=== PATIENT | female | born 1985 | race Caucasian/White ===

== ENCOUNTER 2024-04-09 23:47 | Inpatient (IN) | payer OTHER, SELFPAY ==
--- OUTSIDE RECORDS SUMMARY | 2024-04-09 23:52 | XMS_ITS | Continuity of Care Document ---
Author Organization [employer] ter Address [address] [place] [id number]- Care Team Providers Care Plastic Maker Name Role Phone Vivian WORKMAN, He Huitron Primary Care Physician Encounter [facility] ACCT R [id number] Date(s): 11/17/22 - 11/23/[address] [address] Discharge Disposition: A-D/C Home Attending Physician: Namrata Jeffers DO Admitting Physician: Ruddy Stovall MD Referring Physician: Not on Staff, Referring MD Allergies, Adverse Reactions, Alerts Substance Reaction Severity Status amoxicillin Active Fioricet Active Bactrim Active Vicodin Active Immunizations Given and Recorded Vaccine Date Status Refusal Reason tetanus/diphtheria/pertussis, acel(Tdap) 1 09/10/14 Given tetanus/diphtheria/pertussis, acel(Tdap) 2 02/23/10 Given 1Admin Note: VIS sheet given 12/20/2012 2Admin Note: VIS 07/01/09; WAIVER SIGNED Medications aspirin 81 mg oral delayed release tablet 81 mg, 1, tablet, By Mouth, Daily, # 30 tablet, Refills 0, Tot. Refills 0, Maintenance, 11/23/22 15:29:00 EDT, Route to Pharmacy Electronically, [facility], Partial fill upon patient request if the prescription is for a schedule II opioi... Start Date: 11/23/22 Stop Date: 12/23/22 Status: Ordered [place] By Mouth, 0 Refills, Maintenance, 05/25/20 10:20:00 EDT Start Date: 05/25/20 Status: Ordered Compression Stockings See Instructions, # 2 each, Refills 3, Tot. Refills 3, Maintenance, surgical, knee length 20-30 mm Hg, 05/25/20 10:55:00 EDT, Supply, 161, cm, 05/25/20 10:18:00 EDT, Height, 83.5, kg, 10/02/18 17:47:00 EST, Dry Weight Start Date: 05/25/20 Status: Ordered Gabapentin = 1,200 mg, By Mouth, 2 times a day, 0 Refills, Maintenance, 02/02/16 9:14:54 Start Date: 02/02/16 Status: Ordered gabapentin 400 mg oral capsule 1,200 mg, Capsule, By Mouth, 11/23/22 9:00:00 EDT Start Date: 11/23/22 Stop Date: 11/23/22 Status: Completed ibuprofen 600 mg oral tablet 600 mg, 1, tablet, By Mouth, 4 times a day, PRN, # 30 tablet, Refills 0, Tot. Refills 0, Maintenance, as needed for pain, 08/09/17 16:54:44, Print Requisition Start Date: 08/09/17 Status: Ordered Omeprazole = 40 mg, By Mouth, Daily, 0 Refills, Maintenance, 05/15/17 10:07:13 Start Date: 05/15/17 Status: Ordered Topamax 100 mg oral tablet 1 tablet = 100 mg, By Mouth, Daily, 0 Refills, Maintenance, 05/15/17 10:07:22 Start Date: 05/15/17 Status: Ordered valACYclovir 500 mg oral tablet 1,000 mg, 2, tablet, By Mouth, Daily, Refills 0, Maintenance, 11/23/22 15:30:00 EDT, Partial fill upon patient request if the prescription is for a schedule II opioid drug. Start Date: 11/23/22 Status: Ordered Problem List Condition Confirmation Course Effective Dates Status Health St atus Informant DVT (deep venous thrombosis) Confirmed Active GENITAL HERPES, UNSPECIFIED Confirmed Active x 3 Confirmed Active Migraine without aura Confirmed Active Social history 1 Confirmed Active Ulcerative colitis Confirmed Active Venous varices Confirmed Active 1Engaged, nonsmoker. Results Radiology Reports * Exam Date Time Procedure Performing Provider Status 11/22/22 9:26 PM US Doppler Ext Upper Venous Bilat Kina Bedoya; Auth (Verified) Notes: (US Doppler Ext Upper Venous Bilat) Reason For Exam: hypercoaguability, stroke;Other: RESULT: US Doppler Ext Upper Venous Bilat US Doppler Ext Upper Venous Bilat Reason: Other:; hypercoaguability, stroke; Clinical Question(s): Thrombosis COMPARISON: None. IMAGING TECHNIQUE: Ultrasound examination of the bilateral upper extremity deep venous systems was performed using grayscale, color, and spectral wave analysis including response to compression. FINDINGS: RIGHT UPPER EXTREMITY: Internal jugular vein: Patent. No thrombosis. Subclavian vein: Patent. Axillary vein: Patent. No thrombosis. Brachial vein: Patent. No thrombosis. Basilic vein: Patent. No thrombosis. Cephalic vein: Patent. No thrombosis. LEFT UPPER EXTREMITY: Internal jugular vein: Patent. No thrombosis. Subclavian vein: Patent. Axillary vein: Patent. No thrombosis. Brachial vein: Patent. No thrombosis. Basilic vein: Patent. No thrombosis. Cephalic vein: Patent. No thrombosis. IMPRESSION: No evidence of venous thrombosis. WSN: [id number] Ordering Physician: Shanda Velarde Dictated By: Manpreet Latif MD Dictated Date/Time: 11/22/22 9:39 pm Reviewed By: Manpreet Latif MD Signed By: Manpreet Latif MD Signed Date/Time: 11/22/22 9:39 pm Transcribed By: BRADLEY Transcribed Date/Time: 11/22/22 9:38 pm * Exam Date Time Procedure Performing Provider Status 11/22/22 7:[address] Abd/Pelvis W/ IV Contrast Only Stup Jere king; Auth (Verified) Notes: (CT Abd/Pelvis W/ IV Contrast Only) Reason For Exam: Hypercoaguable;Other: RESULT: CT Abd/Pelvis W/ IV Contrast Only CT Chest W/ Contrast, CT Abd/Pelvis W/ IV Contrast Only INDICATION: Reason: Other:; Search for cancer, hypercoagulable; Clinical Question(s): Carcinoma; Order Comment: TECHNIQUE: Helical CT scan of the chest, abdomen, and pelvis with IV contrast, formatted in 3 planes. 100 cc of Omnipaque 300 was administered intravenously. This study was performed without oral contrast. Weight-based protocol was performed using automatic exposure control. CTDIvol Body: 11.61 mGy, DLP Body: 766 mGy*cm. COMPARISON: CT abdomen pelvis noncontrast 02/19/2016. FINDINGS: Educational Diagnostician view findings, lines and tubes: None. Trachea and airways: Patent without evidence of tracheal or endobronchial lesion. Lungs and pleura: Minimal dependent atelectasis in the lower lobes. No consolidation. No suspiciouspulmonary lesion. No effusion or pneumothorax. Mediastinum and pablo: No mass or hematoma. No mediastinal or hilar lymphadenopathy. No esophageal abnormality. Normal thyroid. Heart: Heart is normal in size. No pericardial effusion. Aorta: No aortic aneurysm. Pulmonary arteries: Normal caliber. No evidence of pulmonary embolism on this study performed without angiographic technique. Chest wall soft tissues: No acute abnormality. Diaphragm: Intact. Liver: Diffuse low-attenuation throughout the liver parenchyma consistent with hepatic steatosis. No evidence of a suspicious lesion. More focal fatty infiltration adjacent to the falciform ligament versus variant perfusion. Patent portal and hepatic veins. Gallbladder: Absent consistent with prior cholecystectomy. Bile ducts: No biliary ductal dilation. Spleen: Spleen is enlarged and measures 16 cm in craniocaudal dimension. No suspicious splenic lesion. Pancreas: No suspicious lesion or ductal dilatation. Adrenal glands: No nodule. Kidneys and ureters: Numerous bilateral nonobstructing renal calculi. The stone burden is similar to the prior CT on 02/19/2016. Simple cyst in the interpolar region of the right kidney. No suspicious renal mass. Bladder: No wall thickening or surrounding stranding. Reproductive organs: Right ovarian corpus luteum cyst. Anteverted uterus. No adnexal mass. Stomach, small bowel, and large bowel: Stomach, small bowel and large bowel are normal in caliber. No evidence of bowel obstruction. No acute inflammatory process of the bowel. Appendix: No evidence of acute appendicitis. Peritoneum and retroperitoneum: No ascites or pneumoperitoneum. No omental or mesenteric lesions. Lymph nodes: Mildly prominent inguinal lymph nodes bilaterally, more so on the left with adjacent surgical clips. The largest partially imaged lymph node measures 2.5 x 1.3 cm and is without significant change dating back to 02/19/2016. Blood vessels: No vascular calcifications or aneurysm. No evidence of venous thrombosis. Abdominal and pelvic wall soft tissues: No acute abnormality. Bones: No acute abnormality. IMPRESSION: 1. Moderate splenomegaly measuring up to 16 cm in craniocaudal dimension. 2. Bilateral nonobstructing renal calculi with a similar stone burden to 02/19/2016. 3. Unchanged mildly enlarged left inguinal lymph node with adjacent surgical clips. 4. Hepatic steatosis 5. No acute process in the chest. WSN: [id number] Ordering Physician: Shanda Velarde Dictated By: Franko Li MD Dictated Date/Time: 11/22/22 8:04 pm Reviewed By: Franko Li MD Signed By: Franko Li MD Signed Date/Time: 11/22/22 8:04 pm Transcribed By: BRADLEY Transcribed Date/Time: 11/22/22 7:54 pm * Exam Date Time Procedure Performing Provider Status 11/22/22 7:[address] Chest W/ Contrast Stupak , Jere; Au th (Verified) Notes: (CT Chest W/ Contrast) Reason For Exam: Search for cancer, hypercoaguable;Other: RESULT: CT Chest W/ Contrast CT Chest W/ Contrast, CT Abd/Pelvis W/ IV Contrast Only INDICATION: Reason: Other:; Search for cancer, hypercoagulable; Clinical Question(s): Carcinoma; Order Comment: TECHNIQUE: Helical CT scan of the chest, abdomen, and pelvis with IV contrast, formatted in 3 planes. 100 cc of Omnipaque 300 was administered intravenously. This study was performed without oral contrast. Weight-based protocol was performed using automatic exposure control. CTDIvol Body: 11.61 mGy, DLP Body: 766 mGy*cm. COMPARISON: CT abdomen pelvis noncontrast 02/19/2016. FINDINGS: Educational Diagnostician view findings, lines and tubes: None. Trachea and airways: Patent without evidence of tracheal or endobronchial lesion. Lungs and pleura: Minimal dependent atelectasis in the lower lobes. No consolidation. No suspiciouspulmonary lesion. No effusion or pneumothorax. Mediastinum and pablo: No mass or hematoma. No mediastinal or hilar lymphadenopathy. No esophageal abnormality. Normal thyroid. Heart: Heart is normal in size. No pericardial effusion. Aorta: No aortic aneurysm. Pulmonary arteries: Normal caliber. No evidence of pulmonary embolism on this study performed without angiographic technique. Chest wall soft tissues: No acute abnormality. Diaphragm: Intact. Liver: Diffuse low-attenuation throughout the liver parenchyma consistent with hepatic steatosis. No evidence of a suspicious lesion. More focal fatty infiltration adjacent to the falciform ligament versus variant perfusion. Patent portal and hepatic veins. Gallbladder: Absent consistent with prior cholecystectomy. Bile ducts: No biliary ductal dilation. Spleen: Spleen is enlarged and measures 16 cm in craniocaudal dimension. No suspicious splenic lesion. Pancreas: No suspicious lesion or ductal dilatation. Adrenal glands: No nodule. Kidneys and ureters: Numerous bilateral nonobstructing renal calculi. The stone burden is similar to the prior CT on 02/19/2016. Simple cyst in the interpolar region of the right kidney. No suspicious renal mass. Bladder: No wall thickening or surrounding stranding. Reproductive organs: Right ovarian corpus luteum cyst. Anteverted uterus. No adnexal mass. Stomach, small bowel, and large bowel: Stomach, small bowel and large bowel are normal in caliber. No evidence of bowel obstruction. No acute inflammatory process of the bowel. Appendix: No evidence of acute appendicitis. Peritoneum and retroperitoneum: No ascites or pneumoperitoneum. No omental or mesenteric lesions. Lymph nodes: Mildly prominent inguinal lymph nodes bilaterally, more so on the left with adjacent surgical clips. The largest partially imaged lymph node measures 2.5 x 1.3 cm and is without significant change dating back to 02/19/2016. Blood vessels: No vascular calcifications or aneurysm. No evidence of venous thrombosis. Abdominal and pelvic wall soft tissues: No acute abnormality. Bones: No acute abnormality. IMPRESSION: 1. Moderate splenomegaly measuring up to 16 cm in craniocaudal dimension. 2. Bilateral nonobstructing renal calculi with a similar stone burden to 02/19/2016. 3. Unchanged mildly enlarged left inguinal lymph node with adjacent surgical clips. 4. Hepatic steatosis 5. No acute process in the chest. WSN: [id number] Ordering Physician: Shanda Velarde Dictated By: Franko Li MD Dictated Date/Time: 11/22/22 8:04 pm Reviewed By: Franko Li MD Signed By: Franko Li MD Signed Date/Time: 11/22/22 8:04 pm Transcribed By: BRADLEY Transcribed Date/Time: 11/22/22 7:54 pm * Exam Date Time Procedure Performing Provider Status 11/21/22 10:26 AM US Doppler Ext Lower Venous Bilat Eryn Alexander; Pat (Verified) Notes: (US Doppler Ext Lower Venous Bilat) Reason For Exam: Hx blood clots;Other: RESULT: US Doppler Ext Lower Venous Bilat US Doppler Ext Lower Venous Bilat Reason: Hx blood clots; Clinical Question(s): Thrombosis; Order Comment: prior DVT- varicose veins-embolic CVA COMPARISON: 09/01/2018 IMAGING TECHNIQUE: Ultrasound of the veins from the groin through the calf was performed using grayscale, color, and spectral Doppler ultrasound assessing for complete compressibility and normal flowcharacteristics. FINDINGS: RIGHT LOWER EXTREMITY: Common femoral vein: Patent. No thrombosis. Femoral vein: Patent. No thrombosis. Popliteal vein: Patent. No thrombosis. Gastrocnemius veins: The visualized portions are patent without evidence of thrombosis. Peroneal veins: The visualized portions are patent without evidence of thrombosis. Posterior tibial veins: The visualized portions are patent without evidence of thrombosis. LEFT LOWER EXTREMITY: Common femoral vein: Patent. No thrombosis. Femoral vein: Patent. No thrombosis. Popliteal vein: Patent. No thrombosis. Gastrocnemius veins: The visualized portions are patent without evidence of thrombosis. Peroneal veins: The visualized portions are patent without evidence of thrombosis. Posterior tibial veins: The visualized portions are patent without evidence of thrombosis. IMPRESSION: No evidence of deep venous thrombosis. WSN: [id number] Ordering Physician: Gianni Freed Dictated By: Brandin Hardwick MD Dictated Date/Time: 11/21/22 10:53 a Reviewed By: Brandin Hardwick MD Signed By: Brandin Hardwick MD Signed Date/Time: 11/21/22 10:53 am Transcribed By: BRADLEY Transcribed Date/Time: 11/21/22 10:53 am * Exam Date Time Procedure Performing Provider Status 11/19/22 3:04 AM MRI Brain W/O Contrast Ron Cobos (Verified) Notes: (MRI Brain W/O Contrast) Reason For Exam: L MCA infarct s/p TNK/thrombectomy;Other: RESULT: MRI Brain W/O Contrast MRI Brain W/O Contrast INDICATION: Reason: Other:; L MCA infarct s p TNK thrombectomy; Clinical Question(s): Infarction; Order Comment: Please see Reference Text for complete list of contraindications Infarction TECHNIQUE: MRI of the brain was performed without contrast utilizing sagittal T1, axial T2, axial FLAIR, axial SWAN, and axial DWI sequences. COMPARISON: Head CT 11/18/2022 FINDINGS: Image quality is mildly degraded by motion. BRAIN and EXTRA-AXIAL SPACES: There is restricted diffusion involving the left insula, left frontoparietal operculum, and scattered in the white matter as well as the alfonso-white matter junction of the right frontal and parietal lobes compatible with acute infarct. Associated T2 hyperintensity with local swelling and loss of alfonso-white matter differentiation which is most prominent along the insula. Ventricles and sulci are otherwise normal in size. No extra-axial collection, mass effect, shift ofmidline structures, or basal cistern effacement. No hemorrhage. The major intracranial vascular flow voids are preserved. EXTRACRANIAL SOFT TISSUES: Orbits are unremarkable. There is mild scattered mucosal thickening in the paranasal sinuses, without fluid levels. BONES: Marrow signal is preserved. IMPRESSION: Areas of acute infarct in the left MCA territory as detailed above. No hemorrhage. WSN: [id number] Ordering Physician: Kacey Jay Dictated By: Nereyda Richardson MD Dictated Date/Time: 11/19/22 7:19 am Reviewed By: Nereyda Richardson MD Signed By: Nereyda Richardson MD Signed Date/Time: 11/19/22 7:19 am Transcribed By: BRADLEY Transcribed Date/Time: 11/19/22 7:16 am * Exam Date Time Procedure Performing Provider Status 11/18/22 5:[address] Head/Brain W/O Contrast Tomy Mckeon; Pat (Verified) Notes: (CT Head/Brain W/O Contrast) Reason For Exam: 24hrs post TNK;Other: RESULT: CT Head/Brain W/O Contrast CT Head/Brain W/O Contrast INDICATION: 24hrs post TNK; Clinical Question(s): Infarction; Order Comment: TECHNIQUE: Noncontrast head CT using axial technique and reconstructed in axial and coronal planes.Iterative reconstruction techniques are used to optimize dose and image quality. CTDIvol Head: 30.44 mGy, DLP Head: 487 mGy*cm. COMPARISON: CT angiogram head from 11/17/2022 and intracranial angiogram from 11/17/2022. FINDINGS: Educational Diagnostician view findings, lines and tubes: None. BRAIN AND EXTRA-AXIAL SPACES: No parenchymal hemorrhage, midline shift, or mass effect. Alfonso-white matter differentiation is wellpreserved. No acute infarct. Negative insular ribbon and hyperdense vessel signs. Ventricles, sulci, and basilar cisterns are normal. No white matter lesions. No subarachnoid hemorrhage. No subdural or epidural collection. CALVARIUM, SKULL BASE, AND SOFT TISSUES: No fractures or suspicious bony lesions. Moderate mucosal thickening in the bilateral maxillary sinuses. The remainder of the paranasal sinuses and mastoid air cells are clear. Visualized orbits and globes are intact. The extracranial soft tissues are unremarkable. IMPRESSION: No acute intracranial pathology. No evolving infarct. No evidence of acute hemorrhage. I have personally reviewed the images and I agree with this report. WSN: [id number] Ordering Physician: Steffi Heller Dictated By: Beatrice Shea MD Dictated Date/Time: 11/18/22 6:36 pm Reviewed By: Jc Clark MD Signed By: Jc Clark MD Signed Date/Time: 11/18/22 6:41 pm Transcribed By: BRADLEY Transcribed Date/Time: 11/18/22 6:09 pm * Exam Date Time Procedure Performing Provider Status 11/18/22 2:57 PM Chest Portable Gary Piña; Auth (V erified) Notes: (Chest Portable) Reason For Exam: diagnosed outpt with PNA;Other: RESULT: Chest Portable Chest Portable Reason: Concern for pneumonia COMPARISON: 10/03/2014, 09/04/2014 FINDINGS: LINES AND TUBES: None. LUNGS AND PLEURA: Mild bibasilar atelectasis. Normal pulmonary vascularity. No pleural effusion. No pneumothorax. HEART, MEDIASTINUM AND PABLO: Heart is normal in size. Normal mediastinal and hilar contour. BONES AND SOFT TISSUES: Right C7 cervical rib.. IMPRESSION: Mild bibasilar atelectasis. I have personally reviewed the images and I agree with this report. WSN: [id number] Ordering Physician: Steffi Heller Dictated By: Karla Hunt MD Dictated Date/Time: 11/18/22 4:15 pm Reviewed By: Gibran Arnold MD Signed By: Gibrna Arnold MD Signed Date/Time: 11/18/22 4:20 pm Transcribed By: BRADLEY Transcribed Date/Time: 11/18/22 4:00 pm Vital Signs Most recent to oldest [Reference Range]: 1 2 3 Height 165 cm (11/23/22 4:45 AM) 165 cm (11/22/22 8:17 PM) 165 cm (11/22/22 3:45 PM) Weight 72 kg (11/21/22 4:10 PM) 72.0 kg (11/21/22 7:30 AM) 72 kg (11/21/22 7:24 AM) Oxygen Saturation [94-100 %] 97 % (11/23/22 12:00 PM) 99 % (11/23/22 8:00 AM) 100 % (11/23/22 4:45 AM) Pulse Rate [55-90 bpm] 92 bpm *H* (11/23/22 12:00 PM) 67 bpm (11/23/22 8:00 AM) 78 bpm (11/23/22 4:45 AM) Body Mass Index [18.5-24.99 kg/m2] 26.63 kg/m2 *H* (11/21/22 3:20 AM) 26.63 kg/m2 *H* (11/17/22 10:28 PM) Blood Pressure [90-138/55-84 mm Hg] 112/69mm Hg (11/23/22 12:00 PM) 117/61mm Hg (11/23/22 8:00 AM) 105/61mm Hg (11/23/22 4:45 AM) Respiratory Rate [16-30 br/min] 18 br/min (11/23/22 12:00 PM) 18 br/min (11/23/22 10:37 AM) 18 br/min (11/23/22 9:37 AM) Temperature [96.8-100.4 DegF] 98.8 DegF (11/23/22 12:00 PM) 99.3 DegF (11/23/22 8:00 AM) 98.1 DegF (11/23/22 4:45 AM) Liters per Minute 4 L/min (11/18/22 12:00 AM) 6 L/min (11/17/22 11:30 PM) 6 L/min (11/17/22 11:00 PM) Mode of Delivery (Oxygen) Room air (11/23/22 12:00 PM) Room air (11/23/22 8:00 AM) Room air (11/23/22 4:45 AM) Blood pressure sites Arm, right (11/23/22 12:00 PM) Arm, right (11/23/22 8:00 AM) Arm, left (11/23/22 4:45 AM) Temperature Route Temporal (11/23/22 12:00 PM) Oral (11/23/22 8:00 AM) Oral (11/23/22 4:45 AM) Dry Weight 72.5 kg (11/17/22 10:28 PM) Weight Obtained Via Standing scale (11/21/22 7:30 AM) Standing scale (11/21/22 7:24 AM) Bed scale (11/21/22 3:20 AM) Dry Weight Obtained Via Bed scale (11/17/22 10:28 PM) Social History Social History Type Response Smoking Status Never smoker entered on: 09/24/13 Sex Note * Radha Correia RN: PERFORM Event Display: Discharge/Transfer Note Hospital Authored Date: [id number] Nursing Discharge Note Entered On: 11/23/2022 19:20 EDT Performed On: 11/23/2022 19:19 EDT by Radha Correia RN Nursing Discharge Note 2 Discharge Time : 11/23/2022 19:20 EDT Discharge Level of Care at Discharge : Home/Long Term/Foster Care Patient Left Unit Via : Ambulatory Patient Accompanied Off Unit with : Parent DC Instructions Provided & Signed by Pt : Yes Patient Understands D/C Instructions : Yes Patient Instructions Discharge Signed : Yes Discharge Comments : iv d/c, tip intact, safety maintained, d/c with family Did Pt have Specialty Bed or Wound Vac : No Radha Correia RN - 11/23/2022 19:19 EDT * Shanda Velarde MD: MODIFY, PERFORM, MODIFY, MODIFY, MODIFY, MODIFY, MODIFY Event Display: Discharge/Transfer Note Hospital Authored Date: [id number] Patient: ??COREY SEVILLA ? Age:??37 Years?Sex:??Female?:??1985?? Patient Information Discharge Location: A Primary Care Physician: He Park MD Admit Date/Time: 11/17/22 20:20 Discharge Disposition Discharge Disposition: Home: No ServicesA serves Discharge Diagnosis At risk for impairment of swallowing (Z91.89) Dysarthria (R47.1) Impaired mobility and ADLs (Z74.09) Other specified health status (Z78.9) Stroke due to embolism of left middle cerebral artery (I63.412) ?? _ Discharge Medications deutetrabenazine (Austedo)?By Mouth Gabapentin?1,200?Milligram?By Mouth?2 times a day Ibuprofen (ibuprofen 600 mg oral tablet)?600?Milligram?1?tablet?By Mouth?4 times a day?as needed?as needed for pain Omeprazole?40?Milligram?By Mouth?Daily Topiramate (Topamax 100 mg oral tablet)?1?tab(s)?100?Milligram?By Mouth?Daily ? Medications Started Aspirin Medications Discontinued None Doses Changed None PCP Follow-Up/Heads-Up ??? Please perform medicine reconciliation ??? Please??prescribe DOAC on 11/28 ??? Please follow up pending work-up for hypercoagulopathy ??? Please??ensure follow-up with hematology, neurology ??? Please consider alternative migraine medication??instead of topiramate given kidney stones ??? Please monitor??LFTs given hepatic steatosis Future Appointments Monday. 2022 2:30 PM EDT ?? With: John WORKMAN, Nicanor Where: [facility] [address] [facility] 3rd Floor, [address] [place] [id number]- Hospital Course ?? Corey is a 37-year-old female with past medical history of [place]'s chorea, migraine, GERD, ulcerative colitis, anxiety, venous insufficiency and thrombophlebitis/thrombus with previous DVTs 9 years ago previously on Coumadin (currently off anticoagulation for the past 5 years per patient since of last child) who presents to [place] with acute onset facial droop and global aphasia. ??NIH was 8. ??CT head was nonacute and she was treated with tenecteplase at 6:45 PM. ??CTA showed left M2 occlusion and transferred to [facility] for thrombectomy with TICI 3 recannulization. ??During thrombectomy patient was noted to have vasospasm and was treated with IA verapamil. ??Patient tolerated procedure well and was transferred out of [facility] 11/19/2022 to general floor.?? She was started on aspirin. ??Statin deferred as she is close to goal on her lipid profile. ??Echo with bubble study positive for PFO. ??Given her young age, comprehensive??coagulopathic??work-up was done,??final??results pending. CT scans negative for malignancy which can predispose to hypercoaguable state.??Recommendation to start apixaban??on ??with plan for neurology??and hematology following with patient and plan to follow-up with her PCP??within 1 week. ?? Objective Assessment and Plan ?? Facial droop and global aphasia Acute left MCA infarct status post thrombolytics at 6:45 PM on admission and thrombectomy with TICI3 recanalization, repeat CT on 11/18 with no acute pathology History of migraines History of bilateral DVTs 9 years ago (currently off anticoagulation for the past 5 years per patient after of son) History of thrombophlebitis and venous insufficiency Patient had MRI brain which showed acute infarct in the left MCA territory, no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 Stroke ?? 468 STROKE ZONES EVERY DAY SELF CARE IS YOUR GOAL ??? Take all your medications as instructed by your doctors. ??? Monitor your blood pressure as instructed.?? Bring your blood pressure recordings to your doctor visits. ??? Eat a diet low in fat andsalt (sodium). ??? Exercise daily for 30 minutes. ??? Limit your alcohol intake ??? no more than 2 drinks a day. ??? Exercise daily for 30 minutes. ??? Limit your alcohol intake ??? no more than 2 drinks a day. ??? Keep all healthcare appointments. Which Zone are you today? GREEN or RED? GREEN ZONE YOUR SYMPTOMS ARE UNDER CONTROL ??? If your blood pressure is in normal range for you. ??? If your LDL Cholesterol is less than or equal to 100. ??? If your heart is in a regular rhythm.?? Do you have Afib? If your weight is gary normal range. ??? If you take Coumadin/Warfarin and your INR blood level is between 2 and 3. ??? If your blood sugar is in a normal range for you. Do not smoke or use any form of tobacco RED ZONE MEDICAL ALERT: YOU NEED TO BE CHECKED BY A DOCTOR DO NOT IGNORE THESE SIGNS AND SYMPTOMS EVEN IF THEY GO AWAY. Write down the time when the symptoms first started. Call 911 immediately and be sure to use the word ???Stroke?? . DO NOT DRIVE YOURSELF ??? Sudden numbness or weakness of the face, arm, leg on one side of the body. ??? Sudden confusion, trouble speaking or understanding what you hear. ??? Sudden trouble seeing in one or both eyes. ??? Sudden trouble walking, dizziness, loss of balance or coordination. ??? Sudden severe headache with no known cause. ??? A TIA (Transient Ischemic Attack) has the same symptoms as a stroke but only last a few minutes. ? * Priscilla Jacome RN: PERFORM Event Display: Patient Education Leaflets Authored Date: [id number] Stroke (Completed) ?? [id number] Stroke (Completed) You have had a stroke, or cerebrovascular accident (CVA). This is caused by a loss of blood flow topart of your brain. Ischemic type strokes can occur when a blood clot forms inside the carotid artery (main artery from the heart to the brain). Or a clot can form inside the heart and travel to the brain to lodge in a blood vessel and block blood flow. Another common ischemic cause of stroke is a gradual narrowing of the arteries in the brain because of buildup of fatty deposits (plaque). A clotcan form at such a narrowing. Less commonly, infection or cancer can cause ischemic stroke. An autoimmune disease can cause inflammation of the blood vessels and also lead to stroke. A second type of stroke is hemorrhagic stroke. It occurs when a blood vessel ruptures and causes bleeding inside the brain . Symptoms Blocked blood flow in different areas of the brain can cause different symptoms. If you have had a stroke before, a new one may be different. A memory aid for the basic signs of a stroke is B.F.F.A.S.T. B.E. F.A.S.T. ??? B is for balance. Sudden loss of balance or coordination. ??? E is for eyes. Vision changes in one or both eyes. ??? F is for face drooping. Drooping or numbness on one side of the face. This maybe more noticeable when you ask the affected person to smile. ??? A is for arm weakness or numbness. The affected person may have trouble using or lifting one side. ??? S is for speech difficulty. Speech may be slurred or hard to understand. The affected person may also use the wrong words. ??? T is for time to call 911. Time is critical in treating a stroke. Call 911 as soon as you suspect a stroke has happened???even a small one. The sooner treatment is started the better, even if the symptoms go away. Other common symptoms of a stroke include: ??? Having trouble getting the right words to come out ??? Weakness in one leg ??? Numbness on one side ??? Trouble walking ??? Trouble with coordination ??? Trouble with vision ??? Severe headache ??? Confusion ??? Dizziness ?? Treatment After you have had a stroke, you are at risk of having another. Be sure to follow up with your healthcare provider for more assessment and treatment. If problems are found, your healthcare provider will advise treatment with medicines, procedures, or both. To reduce your chance of having another stroke, you may be prescribed medicines. These include medicines to prevent blood clots, such as antiplatelet or anticoagulant medicines. Certain heart conditions can be treated with surgery to reduce the risk for more strokes. Surgery to open up a blockage in the carotid artery (endarterectomy) may also reduce the risk for future strokes. You will likely need physical therapy, including speech and occupational therapy if appropriate. This can be done at home, at an outpatient office, or in a rehabilitation hospital. Which location depends on your needs and abilities. ?? Home care ??? Rest at home and don't exert yourself for the next few days. ??? If your healthcare provider has prescribed medicines, take them as directed. ?? Follow-up care Follow up with your healthcare provider, or as advised. Additional tests may be needed. If you had an X-ray, CT scan, MRI, or ECG (electrocardiogram), it will be reviewed by a specialist. You will benotified of any new findings that will affect your care. ?? Call 911 Call 911 if any of these occur: ??? Any of your stroke symptoms worsen ??? Sudden new problems with speech, confusion, vision, walking, coordination, facial droop, or weakness or numbness on one side of your body ??? Severe headache, fainting spell, dizziness, or seizure ??? Chest pain or shortness of breath Remember F.A.S.T. (described above). If you notice warning signs and symptoms of stroke, Call [address] yourself or the victim. The ambulance can alert the hospital and start treatment. ?? Last Reviewed Date: 2022 ?? [employer]. All rights reserved. This information is not intended as a substitute for professional medical care. Always follow your healthcare professional's instructions. ?? * Priscilla Jacome RN: PERFORM Event Display: Patient Education Leaflets Authored Date: [id number] Aspirin Delayed Release Oral Tablet ?? 41187-5 Aspirin Delayed Release Oral Tablet Brands: Aspir-Low, Daniel Aspirin, Ecotrin, Miniprin, Arroyo Aspirin Uses This medicine is used for the following purposes: ??? fever ??? inflammatory disease ??? pain ??? prevent blood clots ??? prevent stroke ??? prevent heart attack ?? Instructions Swallow the medicine without crushing or chewing it. Sit or stand upright for 10 minutes after taking the medicine. Do not lie down. Swallow with a full glass (8 oz) of water unless your doctor gives you different instructions. You may take with food to prevent stomach upset. Keep the medicine at room temperature. Avoid heat and direct light. If you are using this medicine regularly, it is important to take each dose of medicine on time. Keep taking the medicine even if you feel well. If you forget to take a dose on time, take it as soon as you remember. If it is almost time for thenext dose, do not take the missed dose. Return to your normal schedule. Do not take 2 doses at one time. Drug interactions can change how medicines work or increase risk for side effects. Tell your healthcare providers about all medicines taken. Include prescription and fjop-nol-jxobvyf medicines, vitamins, and herbal medicines. Speak with your doctor or pharmacist before starting or stopping any medicine. Tell your doctor if symptoms do not get better or if they get worse. Talk to your doctor before taking other medicines, including aspirins and ibuprofen containing products. Speak to your doctor about which medicines are safe to use while you are on this medicine. ?? Cautions IMPORTANT: Children and teenagers should not use medications containing aspirin for cold and flu symptoms or chickenpox. Tell your doctor and pharmacist if you ever had an allergic reaction to a medicine. There is an increased risk of bleeding while on this medicine, please tell your doctor or nurse if you notice any excessive bleeding or bruising. Do not use the medication any more than instructed. If you drink more than a few alcoholic beverages each day, ask your doctor whether you should be onthis medicine. Avoid smoking while on this medicine. Smoking may increase your risk for stomach bleeding. Contact your doctor if you notice a change in the amount or darkening of your urine. Tell the doctor or pharmacist if you are , planning to be , or . ?? Side Effects The following is a list of some common side effects from this medicine. Please speak with your doctor about what you should do if you experience these or other side effects. ??? stomach upset or abdominal pain If you have any of the following side effects, you may be getting too much medicine. Please contactyour doctor to let them know about these side effects. ??? ringing in the ears Call your doctor or get medical help right away if you notice any of these more serious side effects: ??? severe or persistent abdominal pain ??? bleeding that is severe or takes longer to stop ??? coughing up blood or vomit that looks like coffee grounds ??? fever ??? swelling in the neck or throat ??? shortness of breath ??? dark, tarry stool ??? urinating less often A few people may have an allergic reaction to this medicine. Symptoms can include difficulty breathing, skin rash, itching, swelling, or severe dizziness. If you notice any of these symptoms, seek medical help quickly. ?? Extra Please speak with your doctor, nurse, or pharmacist if you have any questions about this medicine. ?? [email or web address] IMPORTANT NOTE: This document tells you briefly how to take your medicine, but it does not tell youall there is to know about it. Your doctor or pharmacist may give you other documents about your medicine. Please talk to them if you have any questions. Always follow their advice. There is a more complete description of this medicine available in [place]. Scan this code on your smartphone or tablet or use the web address below. You can also ask your pharmacist for a printout. If you have any questions, please ask your pharmacist. The display and use of this drug information is subject to Terms of Use. Copyright(c) 2022 [employer]. ?? [employer]. All rights reserved. This information is not intended as a substitute for professional medical care. Always follow your healthcare professional's instructions. ?? * Event Display: Cardiac Rhythm Strips Authored Date: * Acacia Sandy RN: PERFORM, SIGN, VERIFY Event Display: Patient Education Handout Authored Date: * Event Display: Hemodynamic Procedure Report Authored Date: History and physical note * Misty CLEVELAND, Kacey Fontanez: MODIFY, MODIFY, MODIFY, MODIFY, MODIFY, PERFORM, MODIFY Event Display: History and Physical Hospital Authored Date: Patient: ??COREY SEVILLA ? Age:??37 Years?Sex:??Female?:??1985?? 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 NIHSS 8. LKW 430p. CTH was nonacute, CTA with L M2 occlusion. s/p TNK at 654p. She was transferred to [facility] for thrombectomy, TICI 3. During the thrombectomy it was noted that she has some vasospasm and she received IA verapamil. She arrived in the NCCU extubated but globally aphasic and restless attempting to get OOB and moving arms and legs strong. Due to her agitation she was given propofol 50 push by anesthesia. It wore off within a minutes and was given ativan 2mg ?? According to documentation the patient???s daughter saw the patient at 430p without deficit. Shetook a new antibiotic for PNA and her daughter found her in the bathroom not speaking and with RFD.??I spoke to the patient's mother in law at the bedside. She started doxycycline monday for PNA treatment and today cefpodoxime was added. ?? Medication list provided by the patient's mother in law omeprazole valacyclovir topamax cefpodoxime doxycycline gabapentin sumatriptan hydroxy cut ibuprofen dayquil migraine pain releaver Review of Systems cannot obtain due to aphasia Physical Exam Gen: NAD HEENT: NC/AT Cardiac: RRR, no m/r/g Lungs: CTA bilat. normal I:E Abd: soft, NT/ND, +BS Extremeties: warm and perfused Neuro Exam Mental status: awake and alert, not speaking or following commands. mute. groaning at timesorientedto person, place, month, year, situation. speech clear and fluent. follows commands. appropriate Cranial Nerves: she appears to look L more than she looks R, hard to tell if she can look R all theway. PERRL, BTT hard to tell (at times does not blink on R or L). flattening of R NLF Strength: does not cooperate but appears to move arm and legs symetrically and strongly. Sensation: sensation to LT intact ?? Assessment/Plan 37 y/o F with PMH Talya???s disease, migraine/LEYVA (on Topamax), venous insufficiency, hx of DVT(off coumadin now), GERD presented to [facility] with acute onset RFD and global aphasia. NIHSS 8. LKW 430p. CTH was nonacute, CTA with L M2 occlusion. s/p TNK at 654p. She was transferred to [facility] for thrombectomy, TICI 3. During the thrombectomy it was noted that she has some vasospasm and she received IA verapamil. She arrived in the NCCU extubated but globally aphasic and restless attempting to get OOB and moving arms and legs strong. Due to her agitation she was given propofol 50 push by anesthesia. It wore off within a minutes and was given ativan 2mg. ?? Neuro Acute L MCA infarct, L M2 occlusion s/p TNK (654p) and thrombectomy TICI 3 - etiology unclear Huntingtons Migraine/LEYVA -??q1hr??neuro checks, VS - SBP goal <180 - MRI, TTE ordered - tele - flat, groin precautions - hold antiplatelet/antithrombotics - 24h CTH if MRI brain not complete before - lipids, a1c - statin when able - PM&R consult ordered - NPO until swallow - HOB at 30??deg - Repeat HCT for any change in neuro status - while NPO hold topamax and gabapentin for LEYVA/migraine - precedex for agitation, if becomes bradycardic or hypotensive will change to low dose benzos (gave ativan 2mg x1 while waiting for precedex gtt approval by pharmacy) ?? Cardio- no issues - SBP goal < 180 - ordered TTE - check??EKG ?? Pulm- extubated successfully post thrombectomy PNA dx monday - hold cefpodoxime and doxycycline and will likely give ceftriaxone once the allergy to amoxicillinis clarified ([facility] didnt have any allergies on their file, left message with HCP) - Goal pa02>80, paC02 35-45 & 02??sats??>94% ?? Renal- no active issues, admission Cr normal - K goal >4 and Mag>2, electrolyte protocol - NS while??npo ?? GI/FEN GERD -??npo, pending swallow??eval - Maintain bowel regimen for goal BM??qod - hold omeprazole, give famotidine ?? Heme?? DVT -??goal??Hgb>7 - Goal INR<1.5 and??Plt??> 100,000 - was on??coumadin in the past, now off. INR normal ?? Endocrine?? - Goal glucose 120-180, check??A1c - check TSH - POC q6 ?? ID- afebrile, no leukocytosis PNA dx monday - hold cefpodoxime and doxycycline and will likely give ceftriaxone once the allergy to amoxicillinis clarified ([facility] didnt have any allergies on their file, left message with HCP) -??urinalysis,??cxr, blood/sputum cx if t>101 -??apap??prn - hold valacyclovir??for now ?? ICU Ppx?scd,??sqh (hold) FEN - ns,??npo Lines - PIV Code -??FULL (presumed) Restraints: new wrist restraints for patient safety due to: combative/encephalopathic and pulling critical equipment, attempting to get OOB. alternative have been ineffective. Emergency contact:??MARYAN PRIETO??(life partner) .??DANIEL PRIETO (mother inlharpreet-HCP) - no HCP in [facility], asked her to bring it it? dispo??-??icu d/w Dr. Stovall 45??min CCT. critically ill due to acute L??MCA infarct s/p TNK and thrombectomy, at risk for hemorrhagic conversion, brain edema,??brain??herniation ?? Problem List/Past Medical History Ongoing CALCULUS OF GALLBLADDER WITHOUT MENTION OF CHOLECYSTITIS Cholecystectomy DVT (deep venous thrombosis) x 3 GENITAL HERPES, UNSPECIFIED Migraine without aura Social history Ulcerative colitis Venous varices Historical No qualifying data Procedure/Surgical History Cholecystectomy; Thrombectomy of vein delivery Home Medications deutetrabenazine: By Mouth Durable Medical Equipment: See Instructions, surgical, knee length 20-30 mm Hg Gabapentin: 1,200 mg, By Mouth, 2 times a day Ibuprofen: 600 mg = 1 tablet, By Mouth, 4 times a day, PRN (as needed for pain) Omeprazole: 40 mg, By Mouth, Daily Topiramate: 100 mg = 1 tablet, By Mouth, Daily Allergies Bactrim Fioricet Vicodin amoxicillin Social History Employment/School Status: Employed. Other: Works in a kitchen. Activity level: Moderate physical work., 09/24/2013 Exercise Exercise type: Circuit training., 09/24/2013 Home/Environment Living situation: Home/Independent. Lives with: Children, Three children., 09/24/2013 Tobacco Use: Never smoker., 09/24/2013 Family History Mother: La Salle's chorea Father: Huntingtons chorea Mat. Grandfather: La Salle's chorea Other: Cystic fibrosis * Misty CLEVELAND, Kacey Fontanez: PERFORM Event Display: History and Physical Hospital Authored Date: HR dipped into the 40-50 while on precedex. gtt was stopped??and about 1h after it was stopped while sleeping her HR still did go into the 40s as well. While awake HR 70-100. will d/c precedex and order ativan 1mg IV qh prn anxiety/agitation. EKG study * Event Display: ECG 12-Lead Authored Date: Please click on pdf link to open report * Event Display: ECG 12-Lead Authored Date: Ventricular Rate: 63 BPM Atrial Rate: 63 BPM P-R Interval: 158 ms QRS Duration: 80 ms Q-T Interval: 426 ms QTC Calculation(Bazett): 435 ms P Sparta: 17 degrees R Sparta: 44 degrees T Sparta: 36 degrees Normal sinus rhythm Nonspecific ST abnormality Abnormal ECG When compared with ECG of 23-DEC-2009 09:00, Nonspecific ST abnormality is now Present Heart rate has increased 17 BPM Confirmed by HEATHER JOSEPH MD ([id number]) on 11/18/2022 6:31:28 PM [place]: HEATHER JOSEPH MD Heart * Event Display: Echocardiogram - Complete Authored Date: Transthoracic Echocardiography Report (TTE) Patient Demographics Patient Name COREY SEVILLA Date of Study 11/18/2022 Corporate Gender Female Facility Race Ethnicity Date of 1985 Height: 65 inches Age 37 year(s) Weight: 158.75 pounds Accession Number [id number] BSA: 1.79 m2 Room Number [id number] BMI: 26.42 kg/m2 Referring Physician Kacey Lopes WINDOW AIR CONDITIONER INSTALLER Interpreting He Eisenberg MD Not on Staff Physician Referring MD Assistant Chief Train Dispatcher Haydee Urrutia Indications CVA. Clinical History DVT Study Data Type of Study TTE procedure:Echo Complete-Doppler, Colorflow, M-Mode. Study Date11/18/2022 Start Time: 11:55 AM Study Location: [facility] Adult Echo Study Status: Bedside Patient Status: Routine Technical Quality: Adequate Blood Pressure:101/69 mmHg EKG: Normal sinus rhythm HR: 69 bpm 2D Measurements LV Diastolic Dimension: 4.9 cm LV Systolic Dimension: 3.2 cm LV Septum Diastolic: 0.8 cm LV PW Diastolic: 0.9 cm AO Root Dimension: 3.4 cm LA Dimension: 3.4 cm LA ESV (BP):46.8 ml LVOT Stroke Volume: 91.19 ml LA ESV Index: 26 ml/m2 Stroke Volume Index50.94 ml/m2 LVOT: 2.2 cm Cardiac Index:3.51 l/min/m2 Ascending Aorta:3 cm Doppler Measurements AV Peak Velocity: 146 cm/s MV Peak E-Wave: 81.3 cm/s AV Peak Gradient: 8.53 mmHg MV Peak A-Wave: 93.4 cm/s AV Mean Gradient: 4 mmHg MV E/A Ratio: 0.87 AV VTI:34.2 cm MV P1/2t: 65 msec LVOT Peak Velocity: 118 cm/s LVOT VTI24 cm MV Deceleration Time: 223 msec AV Area (Continuity):2.67 cm2 MV Area (PHT): 3.38 cm2 PV Peak Velocity: 107 cm/s PV Peak Gradient: 4.58 mmHg E' Septal Velocity: 14 cm/s E' Lateral Velocity: 16.6 cm/s E/Med E':[id number] E/Lat E':4.85585 Cardiac Anatomy Left Ventricle/Interventricular Septum Left ventricular size and wall thickness are normal. Normal LV systolic function. Ejection fraction is 55-60%. No obvious wall motion abnormalities seen on limited views. Normal diastolic function. Left Atrium/Interatrial Septum The left atrium is normal in size. Aortic Valve The aortic valve is trileaflet. There is no aortic stenosis. There is trace aortic regurgitation. There is no aortic stenosis. Mitral Valve The mitral valve opening is normal. There is trivial mitral regurgitation. Aorta The ascending aorta and aortic root are normal in size. Right Ventricle The right ventricle is normal in size and function. Right Atrium The right atrium is normal in size. Pulmonic Valve The pulmonic valve is poorly visualized. There is trace pulmonic regurgitation. Tricuspid Valve The tricuspid valve leaflet opening is normal. There is trace tricuspid valve regurgitation. Pumonary Artery An accurate pulmonary artery pressure could not be obtained. Venous Structures There is normal pulmonary venous flow. The inferior vena cava size is normal with blunted inspiratory collapse. The central venous pressure estimation is 8 mmHg. Pericardium/Extracardiac There is no significant pericardial effusion. Summary 1. Left ventricular size and wall thickness are normal. Normal LV systolic function. Ejection fraction is 55-60%. No obvious wall motion abnormalities seen on limited views. Normal diastolic function. 2. The right ventricle is normal in size and function. An accurate pulmonary artery pressure could not be obtained. 3. Biatrial size is normal. 4. There is no hemodynamically significant valvular disease. 5. The inferior vena cava size is normal with blunted inspiratory collapse. The central venous pressure estimation is 8 mmHg. Comparison No prior study available for comparison. Signature * Event Display: Echocardiogram - Complete Authored Date: [id number] US Heart Transesophageal * Event Display: Trans-esophageal Echocardiogram Authored Date: [id number] Transesophageal Echocardiography Report (SHIRA) Patient Demographics Patient Name COREY SEVILLA Date of Study 11/21/2022 Corporate Gender Female Facility Race Ethnicity Date of 1985 Height: 65 inches Age 37 year(s) Weight: 158.75 pounds Accession Number [id number] BSA: 1.79 m2 Room Number [id number] BMI: 26.42 kg/m2 Referring Physician Not on Staff Interpreting He Eisenberg MD Referring MD Physician Tamela Vick Assistant Chief Train Dispatcher Fellow Eleni Barrera CVA. Study Data Type of Study SHIRA procedure:SHIRA with Contrast, Colorflow and Doppler. Procedure Information:The procedure was explained in detail to the patient. Risk, complications and alternative treatments were reviewed. Written consent was obtained by the patient . After informed consent was obtained, the posterior pharynx was anesthetized with viscous/topical lidocaine . The esophagus was intubated without difficulty. Imaging was then commenced. The patient tolerated the procedure well . Heart sounds regular, no murmur . Saline (bubble study) was administered by RN . Breath sounds clear throughout all lobes. Saline (bubble study) was administered by Berenice Blakely RN. Study Date11/21/2022 Start Time: 04:58 PM Study Location: [facility] Study Status: SHIRA Suite Patient Status: Routine Technical Quality: Excellent Blood Pressure:130/87 mmHg EKG: Normal sinus rhythm HR: 54 bpm Contrast Medium: Bubble Study. SHIRA Performed By: He Eisenberg MD Type of Anesthesia: Anesthesia administered by anesthesiologist. 2D Measurements AO Root Dimension: 3 cm LVOT Stroke Volume: 45.68 ml Stroke Volume Index25.52 ml/m2 LVOT: 2.3 cm Cardiac Index:1.38 l/min/m2 Ascending Aorta:3 cm Doppler Measurements AV Peak Velocity: 115 cm/s AV Peak Gradient: 5.29 mmHg AV Mean Gradient: 3 mmHg AV VTI:25.2 cm LVOT Peak Velocity: 46.1 cm/s LVOT VTI11 cm AV Area (Continuity):1.81 cm2 Cardiac Anatomy Left Ventricle/Interventricular Septum The left ventricle is normal in size and systolic function. The ejection fraction is 55-65%. Left Atrium/Interatrial Septum The atrial septum is mobile, but does not reach strict criteria for aneurysm. A small patent foramen ovale (PFO) was noted by color flow Doppler. Agitated saline study (bubble study) also shows right to left shunting suggestive of patent foramen ovale (clip 29). There is no thrombus in the left atrial appendage. Left atrial appendage function is normal. Aortic Valve The aortic valve is trileaflet and normal in structure and function. There is no aortic stenosis or insufficiency. Mitral Valve The mitral valve appears normal . There is trace mitral regurgitation. Aorta The ascending aorta and aortic root are normal in size. There is mild plaque in the descending aorta. There is mild plaque in the aortic arch. Right Ventricle The right ventricular size and function appears grossly normal. A prominent moderator band is present. Right Atrium The right atrium is normal in size. There is no mass or thrombus in the right atrium. Pulmonic Valve The pulmonic valve is poorly visualized. There is trace pulmonic regurgitation. Tricuspid Valve The tricuspid valve is normal in structure and function. There is trace regurgitation. Pumonary Artery An accurate pulmonary artery pressure could not be obtained. Venous Structures There is normal pulmonary venous flow. Pericardium/Extracardiac There is no pericardial effusion. Summary 1. The left ventricle is normal in size and systolic function. The ejection fraction is 55-65%. 2. The atrial septum is mobile, but does not reach strict criteria for aneurysm. A small patent foramen ovale (PFO) was noted by color flow Doppler. Agitated saline study (bubble study) also shows right to left shunting suggestive of patent foramen ovale (clip 29). There is no thrombus in the left atrial appendage. Left atrial appendage function is normal. 3. The ascending aorta and aortic root are normal in size. There is mild plaque in the descending aorta. There is mild plaque in the aortic arch. 4. The right ventricular size and function appears grossly normal. An accurate pulmonary artery pressure could not be obtained. 5. There is no hemodynamically significant valvular disease. Comparison No prior SHIRA study available for comparison. Signature * Event Display: Trans-esophageal Echocardiogram Authored Date: [id number] Hospital Progress note * Priscilla Jacome RN: PERFORM, SIGN, VERIFY Event Display: Progress Note Hospital Authored Date: [id number] Patient: COREY SEVILLA Age: 37 years Sex: Female : 1985 Associated Diagnoses: None Author: Priscilla Jacome RN Findings Narrative/Incidental All discharge instructions reviewed with patient and patient's mother in law, [facility], via teach back method. Pt mother in law able to state when patient to take next doses of all meds and when to make and attend all follow up appointments. IV removed, cannula tip intact. . * John WORKMAN, [facility]: SIGN, MODIFY Gianni Freed NP: PERFORM, MODIFY Gianni Freed NP: MODIFY, MODIFY Abdiaziz [place], Gianni Quintero: MODIFY, MODIFY Abdiaziz [place], Gianni Quintero: MODIFY, SIGN Gianni Freed NP: SIGN, VERIFY Gianni Freed NP: VERIFY Event Display: Progress Note Hospital Authored Date: [id number] Patient: COREY SEVILLA Age: 37 years Sex: Female : 1985 Associated Diagnoses: None Author: Gianni Freed NP Interval History Post stroke day 6: No acute issues. Transesophageal echo showed PFO with ejection fraction 55 to 60%. Bilateral ultrasound of upper and lower extremities negative for DVT. CT chest, abdomen, and pelvis negative for malignancy Review of Systems Review of Systems Constitutional: no fever. Respiratory: no shortness of breath. Cardiovascular: no chest pain. Gastrointestinal: no abdominal pain. HEENT: Head/Neck no headache, Eye no Visual disturbance, Ear/Nose/Mouth Throat no dysphagia. Endocrine: no Excessive thirst. Hematologic: Fatigue. Immunologic/Allergic: no Chills, no Fever, no Hives. Psychiatric: denies Hallucinations. Other systems: Msk No Gross deformities. , Neuro No deficits. . Physical Examination Vital Signs Vitals : VITAL SIGNS SECTION 11/23/2022 8:00 EDT Temperature 99.3 DegF Temperature Route Oral Pulse Rate 67 bpm Respiratory Rate 18 br/min Systolic Blood Pressure 117 mm Hg Diastolic Blood Pressure 61 mm Hg Blood pressure sites Arm, right Oxygen Saturation 99 % Mode of Delivery (Oxygen) Room air . Mentation: Awake, alert, oriented x3. Cranial nerves: No facial asymmetry, sensation equal bilateral. Pupils 3 mm, equal and react to light; moves eyes in coordinated fashion through all visual arce of gaze, no nystagmus or visual disturbance. Speech clear, swallow intact, hearing intact. Motor: Moves all extremities 5/5. Sensation: Reports equal and intact bilaterally to all extremities. Cerebellar: [id number] to finger intact bilaterally. Respiratory: Nonlabored respiratory pattern, breath sounds clear bilaterally. Cardiovascular: Regular rate and rhythm. GI: Abdomen soft, bowel sounds positive. Musculoskeletal: No gross deformities, no limitation in range of motion. Normal bulk, normal tone. Vascular: Skin warm and dry, no edema noted, pedal pulses palpable. Psych: Patient pleasant and engaging in conversation, normal thought process, normal speech pattern. HEENT: Atraumatic eyes clear no drainage, nares patent, moist mucous membranes. Results Review General results Most recent results All : ALL RESULT SECTIONS 11/23/2022 0:39 EDT WBC 5.8 k/mm3 RBC 4.26 m/mm3 Hgb 13.4 Gm/dL Hct 39.7 % Platelet Count 281 k/mm3 Sodium 140 mmol/L Potassium 4.7 mmol/L Chloride 110 mmol/L H Bicarbonate Level 21 mmol/L L Anion Gap 9 BUN 8 mg/dL Creatinine-Blood 0.7 mg/dL Estimated GFR Creatinine 115 ML/MIN/1.73 M2 Calcium 9.5 mg/dL Calcium, Ionized pH Corrected 1.28 mmol/L Phosphorus 3.9 mg/dL Magnesium 2.0 mg/dL 11/20/2022 14:35 EDT B2GP1, IgG <9 B2GP1, IgM <9 Cardiolipin Ab IgM <9 Cardiolipin Ab IgG <9 11/19/2022 4:16 EDT Hemoglobin A1C (Monitoring) 4.7 % Beta Hydroxybutyrate 0.52 mmol/L H 11/18/2022 3:14 EDT Cholesterol 135 mg/dL Triglycerides 103 mg/dL HDL Cholesterol 42 mg/dL LDL Cholesterol 72 mg/dL Non HDL Cholesterol 93 mg/dL TSH 1.45 uIU/mL Medication List MED LIST (Selected) Inpatient Medications Ordered Bisacodyl Supp: 10 mg, Suppository, Rectally, 2 times a day, PRN for Constipation, Routine, 11/17/22 22:17:00 EDT Colace sodium 100 mg oral capsule: 100 mg, Capsule, By Mouth, 2 times a day, Hold for: loose stools, Routine, 11/19/22 21:00:00 EDT Dilaudid Inj: 0.2 mg, Injection, IV Push Slowly, Every 4 hours, PRN for Pain , Severe, Routine, 11/19/22 19:28:00 EDT Doxycycline Tablet: 100 mg, Tablet, By Mouth, Every 12 hours, Indicated for: Pneumonia Community Acquired, Routine, 11/18/22 12:13:00 EDT Heparin Inj: 5,000 units, Injection, Subcutaneous Injection, 3 times a day, (DVT Prophylaxis), Routine, 11/19/22 0:10:00 EDT LORazepam 1 mg oral tablet: 1 mg, Tablet, By Mouth, 3 times a day, PRN for Anxiety, Routine, 11/19/22 16:36:00 EDT MOM Liquid: 30 mL, Suspension, By Mouth, 2 times a day, PRN for Constipation, Routine, 11/19/22 16:37:00 EDT Milk of Magnesia Liquid: 30 mL, Suspension, By Mouth, 2 times a day, PRN for Constipation, Routine,11/17/22 22:17:00 EDT NaCL 0.9% Flush: 3 mL, Injection, IV Push, Every 8 hours, PRN for Other, For Maintaining IV Patencyand/or Flush between IV medications, Routine, 11/17/22 22:17:00 EDT Senna 8.6 mg oral tablet: 2 tablet, Tablet, By Mouth, Daily for 30 days, Hold for: looose stools, Routine, 11/20/22 9:00:00 EDT, Stop date 12/20/22 8:59:00 EDT Topiramate Tablet: 100 mg, Tablet, By Mouth, Daily, Routine, 11/18/22 12:10:00 EDT aspirin 81 mg oral tablet, chewable: 81 mg, Chew Tablet, By Mouth, Daily, Routine, 11/19/22 0:10:00EDT gabapentin 400 mg oral capsule: 1,200 mg, Capsule, By Mouth, 2 times a day, Routine, 11/18/22 12:10:00 EDT pantoprazole 40 mg oral delayed release tablet: 40 mg, EC Tablet, By Mouth, Daily, Indicated for: GERD, Routine, 11/18/22 12:10:00 EDT valACYclovir 500 mg oral tablet: 1,000 mg, Tablet, By Mouth, Daily, Routine, 11/18/22 12:13:00 EDT Prescriptions Prescribed Compression Stockings: See Instructions, # 2 each, Refills 3, Tot. Refills 3, Maintenance, surgical, knee length 20-30 mm Hg, 05/25/20 10:55:00 EDT, Supply, 161, cm, 05/25/20 10:18:00 EDT, Height, 83.5, kg, 10/02/18 17:47:00 EST, Dry Weight ibuprofen 600 mg oral tablet: 600 mg, 1, tablet, By Mouth, 4 times a day, PRN, # 30 tablet, Refills0, Tot. Refills 0, Maintenance, as needed for pain, 08/09/17 16:54:44, Print Requisition Imaging per radiology: 11/17/2022: CT head: No acute intracranial pathology. CTA: There is an abrupt cutoff of the proximal M2 branch of middle branch of the trifurcation of the left MCA which is in the posterior division. The right proximal internal carotid artery show no significant stenosis by NASCET criteria. The left proximal internal carotid artery show no significant stenosis by NASCET criteria. The right cervical vertebral artery shows no significant stenosis. The leftcervical vertebral artery shows no significant stenosis. 11/18/2022: CT head: No acute intracranial pathology. No evolving infarct. No evidence of acute hemorrhage. 11/19/2022: MRI: Areas of acute infarct in the left MCA territory as detailed above. No hemorrhage. 11/22/2022: CT Chest/Abdomen/Pelvis: 1. Moderate splenomegaly measuring up to 16 cm in craniocaudal dimension. 2. Bilateral nonobstructing renal calculi with a similar stone burden to 02/19/2016. 3. Unchanged mildly enlarged left inguinal lymph node with adjacent surgical clips. 4. Hepatic steatosis 5. No acute process in the chest. 11/21-06/2023:US Doppler bilateral upper and lower extremities. No evidence of deep venous thrombosis. No evidence of venous thrombosis. 11/21/2021: Transesophageal echo: Summary 1. The left ventricle is normal in size and systolic function. The ejection fraction is 55-65%. 2. The atrial septum is mobile, but does not reach strict criteria for aneurysm. A small patent foramen ovale (PFO) was noted by color flow Doppler. Agitated saline study (bubble study) also shows right to left shunting suggestive of patent foramen ovale (clip 29). There is no thrombus in the left atrial appendage. Left atrial appendage function is normal. 3. The ascending aorta and aortic root are normal in size. There is mild plaque in the descending aorta. There is mild plaque in the aortic arch. 4. The right ventricular size and function appears grossly normal. An accurate pulmonary artery pressure could not be obtained. 5. There is no hemodynamically significant valvular disease. Impression and Plan NCCU admission 11/17/2022: Left MCA territory infarct in the setting of abrupt cut off at the left M2 proximal branch. Status post TNK 1854 pm; status post thrombectomy. HPI/Hospital course: 37 y/o F- PMH includes anxiety disorder, Talya's chorea, migraine, GERD, venous varices, ulcerative colitis. Reported she was found by her daughter in the bathroom with garbled speech, and left facial weakness. Presented to the emergency room, CT head was negative, CTA with abrupt cut off of the proximal M2 branch of the left MCA; received TNK and went for successful thrombectomy. Reported mild vasospasm during procedure and received intra-arterial verapamil. Follow-up MRI is positive for left MCA infarct. Patient's dysarthric speech significantly improved;slight weakness to right hand grasp and right strength, sensory deficits no longer present. Echocardiogram with EF 55 to 60%, no valvular abnormalities, appears PFO study was not completed. Transesophageal echo was positive for PFO. CT chest abdomen and pelvis were negative for malignancy; US Doppler of upper and lower extremitieswas negative for thrombus. Patient was transferred to neurology floor and has remained stable. Hematology consult was obtained. To date cardiolipin antibody and beta-2 glycoprotein are negative. Discussed with Dr. Lopez. Neuro: Post stroke day 6: Left MCA infarct in the setting of abrupt cut off of the proximal M2 branch of the middle branch of the trifurcation of the left MCA. Received TNK and successful thrombectomy. Reported mild vasospasm during procedure and received intra-arterial verapamil. Hematology consult for hypercoagulopathy work up on going. -Dr. Lopez discussed with Dr. Modi; would recommend starting NOAC on November 28. -Continue aspirin at present. * John WORKMAN, [facility]: PERFORM Event Display: Progress Note Hospital Authored Date: After d/w pt and noted that the DVT not provoked, she has PFO and further an embolic event while weawait Labs for Hypercoag, we favor DOAC such as Xarelto once daily (stop asa once doc started on [id number]-[id number] strokes) and await labs for coag. So far B2 and card ab panel neg suggesting not likely APLAS.Pt had a pregnacy and was taken off Coumadion no miscarriages and she was not sure why the AC stopped and never restarted.Her leg surgery was sev years rbefore the DVT so not related to Surgery. * Chula Guo RN: PERFORM, SIGN, VERIFY Event Display: Progress Note Hospital Authored Date: Patient: COREY SEVILLA Age: 37 years Sex: Female : 1985 Associated Diagnoses: None Author: Chula Guo RN VSS. A/Ox4. On tele, Sinus Rylan/NSR 50-60s, no ectopy. PO Doxy admin for CAQ pna per orders. POC, no ISS. Adequate appetite, vegetarian diet. Flat affect. Independent at baseline. No acute cardiac/resp/GI/ issues to note. Skin grossly intact. Pt's mother in law/HCP [facility] updated via phone. Bed locked in lowest position. Calls appropriately. Call zaragoza and belongings within reach. Frequent rounding maintained. Discharge Information Rehabilitation Discharge : Rehab Discharge Index 11/22/2022 10:04 EDT Comments on treatment indicated Rec home with (S) level for higher level IADL's. Full chart review completed Yes 11/19/2022 9:11 EDT Comments on treatment indicated Rec'd liberalized diet: regular and thin liquids with aspiration precautions, safe swallow strategies. RN consulted. updated w/ rec's. ST to f/u on diet tolerace. Pt educated on intelligibility strategies; may benefit from outpatient ST for speech Full chart review completed Yes Hospital course Hospital course CT Abdomen and Pelvis W contrast IV * [facility] , CIS S: TRANSCFranko Youngblood MD: VERIFY Event Display: Result: Authored Date: [id number] CT Chest W/ Contrast, CT Abd/Pelvis W/ IV Contrast Only INDICATION: Reason: Other:; Search for cancer, hypercoagulable; Clinical Question(s): Carcinoma; Order Comment: TECHNIQUE: Helical CT scan of the chest, abdomen, and pelvis with IV contrast, formatted in 3 planes. 100 cc of Omnipaque 300 was administered intravenously. This study was performed without oral contrast. Weight-based protocol was performed using automatic exposure control. CTDIvol Body: 11.61 mGy, DLP Body: 766 mGy*cm. COMPARISON: CT abdomen pelvis noncontrast 02/19/2016. FINDINGS: Educational Diagnostician view findings, lines and tubes: None. Trachea and airways: Patent without evidence of tracheal or endobronchial lesion. Lungs and pleura: Minimal dependent atelectasis in the lower lobes. No consolidation. No suspiciouspulmonary lesion. No effusion or pneumothorax. Mediastinum and pablo: No mass or hematoma. No mediastinal or hilar lymphadenopathy. No esophageal abnormality. Normal thyroid. Heart: Heart is normal in size. No pericardial effusion. Aorta: No aortic aneurysm. Pulmonary arteries: Normal caliber. No evidence of pulmonary embolism on this study performed without angiographic technique. Chest wall soft tissues: No acute abnormality. Diaphragm: Intact. Liver: Diffuse low-attenuation throughout the liver parenchyma consistent with hepatic steatosis. No evidence of a suspicious lesion. More focal fatty infiltration adjacent to the falciform ligament versus variant perfusion. Patent portal and hepatic veins. Gallbladder: Absent consistent with prior cholecystectomy. Bile ducts: No biliary ductal dilation. Spleen: Spleen is enlarged and measures 16 cm in craniocaudal dimension. No suspicious splenic lesion. Pancreas: No suspicious lesion or ductal dilatation. Adrenal glands: No nodule. Kidneys and ureters: Numerous bilateral nonobstructing renal calculi. The stone burden is similar to the prior CT on 02/19/2016. Simple cyst in the interpolar region of the right kidney. No suspicious renal mass. Bladder: No wall thickening or surrounding stranding. Reproductive organs: Right ovarian corpus luteum cyst. Anteverted uterus. No adnexal mass. Stomach, small bowel, and large bowel: Stomach, small bowel and large bowel are normal in caliber. No evidence of bowel obstruction. No acute inflammatory process of the bowel. Appendix: No evidence of acute appendicitis. Peritoneum and retroperitoneum: No ascites or pneumoperitoneum. No omental or mesenteric lesions. Lymph nodes: Mildly prominent inguinal lymph nodes bilaterally, more so on the left with adjacent surgical clips. The largest partially imaged lymph node measures 2.5 x 1.3 cm and is without significant change dating back to 02/19/2016. Blood vessels: No vascular calcifications or aneurysm. No evidence of venous thrombosis. Abdominal and pelvic wall soft tissues: No acute abnormality. Bones: No acute abnormality. IMPRESSION: 1. Moderate splenomegaly measuring up to 16 cm in craniocaudal dimension. 2. Bilateral nonobstructing renal calculi with a similar stone burden to 02/19/2016. 3. Unchanged mildly enlarged left inguinal lymph node with adjacent surgical clips. 4. Hepatic steatosis 5. No acute process in the chest. WSN: [id number] Ordering Physician: Shanda Velarde Dictated By: Franko Li MD Dictated Date/Time: 11/22/22 8:04 pm Reviewed By: Franko Li MD Signed By: Franko Li MD Signed Date/Time: 11/22/22 8:04 pm Transcribed By: BRADLEY Transcribed Date/Time: 11/22/22 7:[address] Chest W contrast IV * [facility] , CIS S: TRANSCRIBE Franko Li MD: VERIFY Event Display: Result: Authored Date: [id number] CT Chest W/ Contrast, CT Abd/Pelvis W/ IV Contrast Only INDICATION: Reason: Other:; Search for cancer, hypercoagulable; Clinical Question(s): Carcinoma; Order Comment: TECHNIQUE: Helical CT scan of the chest, abdomen, and pelvis with IV contrast, formatted in 3 planes. 100 cc of Omnipaque 300 was administered intravenously. This study was performed without oral contrast. Weight-based protocol was performed using automatic exposure control. CTDIvol Body: 11.61 mGy, DLP Body: 766 mGy*cm. COMPARISON: CT abdomen pelvis noncontrast 02/19/2016. FINDINGS: Educational Diagnostician view findings, lines and tubes: None. Trachea and airways: Patent without evidence of tracheal or endobronchial lesion. Lungs and pleura: Minimal dependent atelectasis in the lower lobes. No consolidation. No suspiciouspulmonary lesion. No effusion or pneumothorax. Mediastinum and pablo: No mass or hematoma. No mediastinal or hilar lymphadenopathy. No esophageal abnormality. Normal thyroid. Heart: Heart is normal in size. No pericardial effusion. Aorta: No aortic aneurysm. Pulmonary arteries: Normal caliber. No evidence of pulmonary embolism on this study performed without angiographic technique. Chest wall soft tissues: No acute abnormality. Diaphragm: Intact. Liver: Diffuse low-attenuation throughout the liver parenchyma consistent with hepatic steatosis. No evidence of a suspicious lesion. More focal fatty infiltration adjacent to the falciform ligament versus variant perfusion. Patent portal and hepatic veins. Gallbladder: Absent consistent with prior cholecystectomy. Bile ducts: No biliary ductal dilation. Spleen: Spleen is enlarged and measures 16 cm in craniocaudal dimension. No suspicious splenic lesion. Pancreas: No suspicious lesion or ductal dilatation. Adrenal glands: No nodule. Kidneys and ureters: Numerous bilateral nonobstructing renal calculi. The stone burden is similar to the prior CT on 02/19/2016. Simple cyst in the interpolar region of the right kidney. No suspicious renal mass. Bladder: No wall thickening or surrounding stranding. Reproductive organs: Right ovarian corpus luteum cyst. Anteverted uterus. No adnexal mass. Stomach, small bowel, and large bowel: Stomach, small bowel and large bowel are normal in caliber. No evidence of bowel obstruction. No acute inflammatory process of the bowel. Appendix: No evidence of acute appendicitis. Peritoneum and retroperitoneum: No ascites or pneumoperitoneum. No omental or mesenteric lesions. Lymph nodes: Mildly prominent inguinal lymph nodes bilaterally, more so on the left with adjacent surgical clips. The largest partially imaged lymph node measures 2.5 x 1.3 cm and is without significant change dating back to 02/19/2016. Blood vessels: No vascular calcifications or aneurysm. No evidence of venous thrombosis. Abdominal and pelvic wall soft tissues: No acute abnormality. Bones: No acute abnormality. IMPRESSION: 1. Moderate splenomegaly measuring up to 16 cm in craniocaudal dimension. 2. Bilateral nonobstructing renal calculi with a similar stone burden to 02/19/2016. 3. Unchanged mildly enlarged left inguinal lymph node with adjacent surgical clips. 4. Hepatic steatosis 5. No acute process in the chest. WSN: [id number] Ordering Physician: Shanda Velarde Dictated By: Franko Li MD Dictated Date/Time: 11/22/22 8:04 pm Reviewed By: Franko Li MD Signed By: Franko Li MD Signed Date/Time: 11/22/22 8:04 pm Transcribed By: BRADLEY Transcribed Date/Time: 11/22/22 7:54 pm US.doppler Upper extremity vein - bilateral * [facility] , CIS S: TRANSCRIBE Manpreet Latif MD: VERIFY Event Display: Result: Authored Date: US Doppler Ext Upper Venous Bilat Reason: Other:; hypercoaguability, stroke; Clinical Question(s): Thrombosis COMPARISON: None. IMAGING TECHNIQUE: Ultrasound examination of the bilateral upper extremity deep venous systems was performed using grayscale, color, and spectral wave analysis including response to compression. FINDINGS: RIGHT UPPER EXTREMITY: Internal jugular vein: Patent. No thrombosis. Subclavian vein: Patent. Axillary vein: Patent. No thrombosis. Brachial vein: Patent. No thrombosis. Basilic vein: Patent. No thrombosis. Cephalic vein: Patent. No thrombosis. LEFT UPPER EXTREMITY: Internal jugular vein: Patent. No thrombosis. Subclavian vein: Patent. Axillary vein: Patent. No thrombosis. Brachial vein: Patent. No thrombosis. Basilic vein: Patent. No thrombosis. Cephalic vein: Patent. No thrombosis. IMPRESSION: No evidence of venous thrombosis. WSN: [id number] Ordering Physician: Shanda Velarde Dictated By: Manpreet Latif MD Dictated Date/Time: 11/22/22 9:39 pm Reviewed By: Manpreet Latif MD Signed By: Manpreet Latif MD Signed Date/Time: 11/22/22 9:39 pm Transcribed By: BRADLEY Transcribed Date/Time: 11/22/22 9:38 pm Portable XR Chest Views * MIMI Wheat S: Gibran Gregorio MD: VERIFY Karla Hunt MD: SIGN Event Display: Result: Authored Date: [id number] Chest Portable Reason: Concern for pneumonia COMPARISON: 10/03/2014, 09/04/2014 FINDINGS: LINES AND TUBES: None. LUNGS AND PLEURA: Mild bibasilar atelectasis. Normal pulmonary vascularity. No pleural effusion. No pneumothorax. HEART, MEDIASTINUM AND PABLO: Heart is normal in size. Normal mediastinal and hilar contour. BONES AND SOFT TISSUES: Right C7 cervical rib.. IMPRESSION: Mild bibasilar atelectasis. I have personally reviewed the images and I agree with this report. WSN: [id number] Ordering Physician: Steffi Heller Dictated By: Karla Hunt MD Dictated Date/Time: 11/18/22 4:15 pm Reviewed By: Gibran Arnold MD Signed By: Gibran Arnold MD Signed Date/Time: 11/18/22 4:20 pm Transcribed By: BRADLEY Transcribed Date/Time: 11/18/22 4:[address] Head WO contrast * MIMI Wheat S: Jc Lam MD S: VERIFY Beatrice Shea MD: SIGN Event Display: Result: Authored Date: [id number] CT Head/Brain W/O Contrast INDICATION: 24hrs post TNK; Clinical Question(s): Infarction; Order Comment: TECHNIQUE: Noncontrast head CT using axial technique and reconstructed in axial and coronal planes.Iterative reconstruction techniques are used to optimize dose and image quality. CTDIvol Head: 30.44 mGy, DLP Head: 487 mGy*cm. COMPARISON: CT angiogram head from 11/17/2022 and intracranial angiogram from 11/17/2022. FINDINGS: Educational Diagnostician view findings, lines and tubes: None. BRAIN AND EXTRA-AXIAL SPACES: No parenchymal hemorrhage, midline shift, or mass effect. Alfonso-white matter differentiation is wellpreserved. No acute infarct. Negative insular ribbon and hyperdense vessel signs. Ventricles, sulci, and basilar cisterns are normal. No white matter lesions. No subarachnoid hemorrhage. No subdural or epidural collection. CALVARIUM, SKULL BASE, AND SOFT TISSUES: No fractures or suspicious bony lesions. Moderate mucosal thickening in the bilateral maxillary sinuses. The remainder of the paranasal sinuses and mastoid air cells are clear. Visualized orbits and globes are intact. The extracranial soft tissues are unremarkable. IMPRESSION: No acute intracranial pathology. No evolving infarct. No evidence of acute hemorrhage. I have personally reviewed the images and I agree with this report. WSN: [id number] Ordering Physician: Steffi Heller Dictated By: Beatrice Shea MD Dictated Date/Time: 11/18/22 6:36 pm Reviewed By: Jc Clark MD Signed By: Jc Clark MD Signed Date/Time: 11/18/22 6:41 pm Transcribed By: BRADLEY Transcribed Date/Time: 11/18/22 6:09 pm US.doppler Lower extremity vein - bilateral * BHSPowerscribe , CIS S: TRANSCRIKASSANDRA Hardwick MD, Brandin: VERIFY Event Display: Result: Authored Date: [id number] US Doppler Ext Lower Venous Bilat Reason: Hx blood clots; Clinical Question(s): Thrombosis; Order Comment: prior DVT- varicose veins-embolic CVA COMPARISON: 09/01/2018 IMAGING TECHNIQUE: Ultrasound of the veins from the groin through the calf was performed using grayscale, color, and spectral Doppler ultrasound assessing for complete compressibility and normal flowcharacteristics. FINDINGS: RIGHT LOWER EXTREMITY: Common femoral vein: Patent. No thrombosis. Femoral vein: Patent. No thrombosis. Popliteal vein: Patent. No thrombosis. Gastrocnemius veins: The visualized portions are patent without evidence of thrombosis. Peroneal veins: The visualized portions are patent without evidence of thrombosis. Posterior tibial veins: The visualized portions are patent without evidence of thrombosis. LEFT LOWER EXTREMITY: Common femoral vein: Patent. No thrombosis. Femoral vein: Patent. No thrombosis. Popliteal vein: Patent. No thrombosis. Gastrocnemius veins: The visualized portions are patent without evidence of thrombosis. Peroneal veins: The visualized portions are patent without evidence of thrombosis. Posterior tibial veins: The visualized portions are patent without evidence of thrombosis. IMPRESSION: No evidence of deep venous thrombosis. WSN: [id number] Ordering Physician: Gianni Freed Dictated By: Brandin Hardwick MD Dictated Date/Time: 11/21/22 10:53 a Reviewed By: Brandin Hardwick MD Signed By: Brandin Hardwick MD Signed Date/Time: 11/21/22 10:53 am Transcribed By: BRADLEY Transcribed Date/Time: 11/21/22 10:53 am MR Brain WO contrast * BHSPowerscribe , CIS S: TRANSCRIBE Nereyda Richardson MD: VERIFY Event Display: Result: Authored Date: [id number] MRI Brain W/O Contrast INDICATION: Reason: Other:; L MCA infarct s p TNK thrombectomy; Clinical Question(s): Infarction; Order Comment: Please see Reference Text for complete list of contraindications Infarction TECHNIQUE: MRI of the brain was performed without contrast utilizing sagittal T1, axial T2, axial FLAIR, axial SWAN, and axial DWI sequences. COMPARISON: Head CT 11/18/2022 FINDINGS: Image quality is mildly degraded by motion. BRAIN and EXTRA-AXIAL SPACES: There is restricted diffusion involving the left insula, left frontoparietal operculum, and scattered in the white matter as well as the alfonso-white matter junction of the right frontal and parietal lobes compatible with acute infarct. Associated T2 hyperintensity with local swelling and loss of alfonso-white matter differentiation which is most prominent along the insula. Ventricles and sulci are otherwise normal in size. No extra-axial collection, mass effect, shift ofmidline structures, or basal cistern effacement. No hemorrhage. The major intracranial vascular flow voids are preserved. EXTRACRANIAL SOFT TISSUES: Orbits are unremarkable. There is mild scattered mucosal thickening in the paranasal sinuses, without fluid levels. BONES: Marrow signal is preserved. IMPRESSION: Areas of acute infarct in the left MCA territory as detailed above. No hemorrhage. WSN: [id number] Ordering Physician: Kacey Jay Dictated By: Nereyda Richardson MD Dictated Date/Time: 11/19/22 7:19 am Reviewed By: Nereyda Richardson MD Signed By: Nereyda Richardson MD Signed Date/Time: 11/19/22 7:19 am Transcribed By: BRADLEY Transcribed Date/Time: 11/19/22 7:16 am Patient Care team information Care Team Personnel Name: William Eddy RN Position: [facility] RN Member Role: Primary Care Nurse Name: Letty Kelly RN Position: [facility] OB RN Member Role: Primary Care Nurse Name: He Park MD Position: [facility] Hospital Medicine Member Role: PCP Address: Address: [address] [place] [address]- Name: Rodrick Kuhn RN Position: [facility] RN Member Role: Primary Care Nurse Name: Jazzmine Fonseca RN Position: [facility] OB RN Member Role: Primary Care Nurse Name: Chula Elena RN Position: [facility] RN Member Role: Primary Care Nurse Name: Danita Pham RN Position: [facility] RN Member Role: Primary Care Nurse Name: Chanel Ascencio RN Position: [facility] OB RN Member Role: Primary Care Nurse Name: Bela Harris RN Position: [facility] RN Member Role: Primary Care Nurse Name: Ashley Gardner DO Position: [facility] SALES DEVELOPMENT CONSULTANT MD Member Role: Lifetime SALES DEVELOPMENT CONSULTANT Physician Address: Address: [address] [place] [address] [address]- Care Team Related Persons Name: PT SAYS NO ONE, NO ONE Name: DANIEL PRIETO Address: home [address] [place], [place] Name: GRIFFIN PRIETO Address: home [address] [place], [place] Name: MARYAN PRIETO Address: home [address] [place] [address]
--- OUTSIDE RECORDS SUMMARY | 2024-04-09 23:52 | XMS_ITS | Continuity of Care Document ---
Author Organization [facility] Address [address] [place] [address]- Care Team Providers Care Chip Mixing Machine Operator Name Role Phone Vivian WORKMAN, He Huitron Primary Care Physician Encounter [facility] [place] Date(s): 11/24/22 - 12/24/22 [facility] [address] [place] [id number] Attending Physician: AdmRaquel scruggs Admitting Physician: Admtr, Raquel Referring Physician: Admtr, Ar8 Allergies, Adverse Reactions, Alerts Substance Reaction Severity [...] 11/23/22 15:29:00 EDT, Route to Pharmacy Electronically, [facility], Partial fill upon patient [...] 02/02/16 9:14:54 Start Date: 02/02/16 Status: Ordered ibuprofen 600 mg oral tablet 600 mg, [...] Active Venous varices Confirmed Active 1Engaged, nonsmoker. Social History Social History Type Response Smoking Status Never smoker entered on: 09/24/13 Sex Patient Care team information Care Team Personnel Name: William Eddy RN Position: [facility] RN Member Role: Primary Care Nurse Name: Letty Kelly RN Position: [facility] OB RN Member Role: Primary Care Nurse Name: He Park MD Position: [facility] Hospital Medicine Member Role: PCP Address: Address: [address] [place] [address] Name: Rodrick Kuhn RN Position: [facility] RN Member Role: Primary Care Nurse Name: Jazzmine Fonseca RN Position: [facility] OB RN Member Role: Primary Care Nurse Name: Chanel Ascencio RN Position: [facility] OB RN Member Role: Primary Care Nurse Name: Bela Harris RN Position: [facility] RN Member Role: Primary Care Nurse Name: Ashley Gardner DO Position: [facility] FRENCH BINDER MD Member Role: Lifetime FRENCH BINDER Physician Address: Address: [address] [place], [place] [address] [address]- [place] Care Team Related Persons Name: PT SAYS NO ONE, NO ONE Name: DANIEL PRIETO Address: home [address] [place] [address] Name: GRIFFIN PRIETO Address: home [address] [place] [address] Name: MARYAN PRIETO Address: [address] [place] [address]
--- OUTSIDE RECORDS SUMMARY | 2024-04-09 23:52 | XMS_ITS | Continuity of Care Document ---
Author Organization [facility] Address [address] [facility], 3r d Floor, [address] [place] [address]- Care Team Providers Care Play Therapist Name Role Phone Vivian WORKMAN, He Huitron Primary Care Physician Encounter [facility] [place] Date(s): 08/16/22 - 10/02/22 [facility] [address] 3rd Floor, [address] [place] [id number] Attending Physician: Maryan Wolfe MD Admitting Physician: Maryan Wolfe MD Referring Physician: Rick Tyson Allergies, Adverse Reactions, Alerts Substance Reaction Severity Status amoxicillin Active Fioricet Active Bactrim Active Vicodin Active Immunizations Given and Recorded Vaccine Date Status Refusal Reason tetanus/diphtheria/pertussis, acel(Tdap) 1 09/10/14 Given tetanus/diphtheria/pertussis, acel(Tdap) 2 02/23/10 Given 1Admin Note: VIS sheet given 12/20/2012 2Admin Note: VIS 07/01/09; WAIVER SIGNED Medications [place] By Mouth, 0 Refills, Maintenance, 05/25/20 [...] 05/15/17 10:07:22 Start Date: 05/15/17 Status: Ordered Problem List Condition Confirmation Course [...] Care team information Care Team Personnel Name: Leticia DING, Letty Henley Position: [facility] OB RN Member Role: Primary Care Nurse Name: He Park MD Position: [facility] Outreach Member Role: PCP Address: Address: [address] [place] [address]- Name: Jazzmine Fonseca RN Position: [facility] OB RN Member Role: Primary Care Nurse Name: Chanel Ascencio RN Position: [facility] OB RN Member Role: Primary Care Nurse Name: Ashley Gardner DO Position: [facility] Member Role: Lifetime [facility] Physician Address: Address: [address] [place], [place] [address] [address]- Care Team Related Persons Name: PT SAYS NO ONE, NO ONE Name: GRIFFIN PRIETO Address: home [address] [place] [address] Name: MARYAN PRIETO Address: [place] [address] [address]
--- OUTSIDE RECORDS SUMMARY | 2024-04-09 23:52 | XMS_ITS | Continuity of Care Document ---
Author Organization [facility] Address [address] [place] [address]- Care Team Providers Care Ship Unloader Name Role Phone Keyur [place], Rosemary Goldstein Primary Care Physician Encounter [facility] [facility] [id number] Date(s): 12/19/23 - 01/18/24 [facility] [address] [place] [address]- [place] Allergies, Adverse Reactions, Alerts Substance Reaction Severity [...] 11/23/22 15:29:00 EDT, Route to Pharmacy Electronically, [facility], Partial fill upon patient [...] Team Personnel Name: William Eddy RN Position: S RN Member Role: Primary Care Nurse Name: Letty Kelly RN Position: [facility] OB RN Member Role: Primary Care Nurse Name: Rosemary Baer NP Position: S Outreach Member Role: PCP Address: Address: [address] [place] [address] Name: Rodrick Kuhn RN Position: S RN Member Role: Primary Care Nurse Name: Jazzmine Fonseca RN Position: [facility] OB RN Member Role: Primary Care Nurse Name: Chanel Ascencio RN Position: [facility] OB RN Member Role: Primary Care Nurse Name: Ashley Gardner DO Position: [facility] ELECTROPHYSIOLOGY TECH MD Member Role: Lifetime ELECTROPHYSIOLOGY TECH Physician Address: Address: [address] [place] [address] [address]- [place] Care Team Related Persons Name: PT SAYS NO ONE, NO ONE Name: DANIEL PRIETO Address: home [address] [place] [address] Name: GRIFFIN PRIETO Address: home [address] [place] [address] Name: MARYAN PRIETO Address: [address] [place] [address]
--- OUTSIDE RECORDS SUMMARY | 2024-04-09 23:52 | XMS_ITS | Continuity of Care Document ---
Author Organization [facility] Address [address] [place] [address]- Care Team Providers Care Color Making Supervisor Name Role Phone Keyur [place], Rosemary Goldstein Primary Care Physician Encounter [facility] [place] Date(s): 01/14/24 - 02/13/[address] [address] Allergies, Adverse Reactions, Alerts Substance Reaction Severity [...] 11/23/22 15:29:00 EDT, Route to Pharmacy Electronically, [facility], Partial fill upon patient [...] Care Nurse Name: Letty Kelly RN Position: [facility] OB RN Member Role: Primary Care Nurse Name: Rosemary Baer NP Position: S Outreach Member Role: PCP Address: Address: [address] [place] [id number] Name: Rodrick Kuhn RN Position: S RN Member Role: Primary Care Nurse Name: Jazzmine Fonseca RN Position: [facility] OB RN Member Role: Primary Care Nurse Name: Chanel Ascencio RN Position: [facility] OB RN Member Role: Primary Care Nurse Name: Ashley Gardner DO Position: [facility] COOLING SYSTEM OPERATOR MD Member Role: Lifetime COOLING SYSTEM OPERATOR Physician Address: Address: [address] [place], [place] [address] [address]- [place] Care Team Related Persons Name: PT SAYS NO ONE, NO ONE Name: DANIEL PRIETO Address: home [address] [place] [address] Name: GRIFFIN PRIETO Address: home [address] [place] [address] Name: MARYAN PRIETO Address: [address] [place] [address]
--- OUTSIDE RECORDS SUMMARY | 2024-04-09 23:52 | XMS_ITS | Continuity of Care Document ---
Author Organization [facility] Address [address] [place] [address]- Care Team Providers Care Twisting Department End Finder Name Role Phone Vivian WORKMAN, He Huitron Primary Care Physician [phone] [place] [facility] Date(s): 11/17/22 - 11/17/[address] [address]- Encounter Diagnosis Acute stroke due to ischemia(Final) - 11/17/22 Discharge Disposition: Transferred to [facility]-term general hospit Attending Physician: Mohamud Brice MD Admitting Physician: Mohamud Brice MD Referring Physician: Not on Staff, Referring [...] Exam Date Time Procedure Performing Provider Status 11/17/22 6:[address] Head-Hyper Acute Stroke Angelo Garner; Auth (Verified) Notes: (CT Head-Hyper Acute Stroke) Reason For Exam: Neuro deficit, acute, stroke suspected;Other: RESULT: CT Head-Hyper Acute Stroke CT Head-Hyper Acute Stroke INDICATION: Right-sided weakness. Aphasia. Reason: Other:; Neuro deficit, acute, stroke suspected; Clinical Question(s): Other:; Hematoma Infarction TECHNIQUE: Noncontrast head CT using axial technique and reconstructed in axial and coronal planes.Iterative reconstruction techniques are used to optimize dose and image quality. CTDIvol Head: 47.60 mGy, DLP Head: 770 mGy*cm. COMPARISON: None. FINDINGS: Commercial Fisher view findings, lines and tubes: None. BRAIN [...] TISSUES: No fractures or suspicious bony lesions. The paranasal sinuses and mastoid air cells are clear. Visualized orbits and globes are intact. The extracranial soft tissues are unremarkable. IMPRESSION: No acute intracranial pathology. Findings were communicated to Mohamud Brice MD via secure messaging system [employer] at 6:30 PM. Message receipt was confirmed. WSN: [id number] Ordering Physician: Mohamud Brice Dictated By: Quinton Wong MD Dictated Date/Time: 11/17/22 6:32 pm Reviewed By: Quinton Wong MD Signed By: Quinton Wong MD Signed Date/Time: 11/17/22 6:32 pm Transcribed By: BRADLEY Transcribed Date/Time: 11/17/22 6:27 pm Vital Signs Most recent to oldest [Reference Range]: 1 Height 163 cm (11/17/22 6:14 PM) Weight 66 kg (11/17/22 6:14 PM) Oxygen Saturation [94-100 %] 99 % (11/17/22 6:14 PM) Pulse Rate [55-90 bpm] 69 bpm (11/17/22 6:14 PM) Body Mass Index [18.5-24.99 kg/m2] 24.84 kg/m2 (11/17/22 6:14 PM) Blood Pressure [90-138/55-84 mm Hg] 126/ 75mm Hg (11/17/22 6:14 PM) Respiratory Rate [16-30 br/min] 16 br/mi n (11/17/22 6:14 PM) Temperature [96.8-100.4 DegF] 98.5 DegF (11/17/22 6:14 PM) Dry Weight 66 kg (11/17/22 6:14 PM) Social History Social History Type Response Smoking Status Never smoker entered on: 09/24/13 Sex Note * BHSPowerscribe , CIS S: TRANSCRIBE Quinton Wong MD: VERIFY Event Display: Result: Authored Date: CT Head-Hyper Acute Stroke INDICATION: Right-sided weakness. Aphasia. Reason: Other:; Neuro deficit, acute, stroke suspected; Clinical Question(s): Other:; Hematoma Infarction TECHNIQUE: Noncontrast head CT using axial technique and reconstructed in axial and coronal planes.Iterative reconstruction techniques are used to optimize dose and image quality. CTDIvol Head: 47.60 mGy, DLP Head: 770 mGy*cm. COMPARISON: None. FINDINGS: Commercial Fisher view findings, lines and tubes: None. BRAIN [...] TISSUES: No fractures or suspicious bony lesions. The paranasal sinuses and mastoid air cells are clear. Visualized orbits and globes are intact. The extracranial soft tissues are unremarkable. IMPRESSION: No acute intracranial pathology. Findings were communicated to Mohamud Brice MD via secure messaging system [employer] at 6:30 PM. Message receipt was confirmed. WSN: [id number] Ordering Physician: Mohamud Brice Dictated By: Quinton Wong MD Dictated Date/Time: 11/17/22 6:32 pm Reviewed By: Quinton Wong MD Signed By: Quinton Wong MD Signed Date/Time: 11/17/22 6:32 pm Transcribed By: BRADLEY Transcribed Date/Time: 11/17/22 6:27 pm Patient Care team information Care Team Personnel Name: Letty Kelly RN Position: [facility] OB RN Member Role: Primary Care Nurse Name: He Park MD Position: [facility] Hospital Medicine Member Role: PCP Address: Address: [address] [place] [address]- Name: Jazzmine Fonseca RN Position: [facility] OB RN Member Role: Primary Care Nurse Name: Chula Elena RN Position: [facility] RN Member Role: Primary Care Nurse Name: Chanel Ascencio RN Position: [facility] OB RN Member Role: Primary Care Nurse Name: Ashley Gardner DO Position: [facility] DRAFTER CARTOGRAPHIC Member Role: Lifetime DRAFTER CARTOGRAPHIC Physician Address: Address: [address] [place] [address]- Name: Mohamud Brice MD Position: [facility] ED Medicine MD Member Role: Admitting Physician Address: Address: [address] [place] [address] [place] [address]- Name: Tarik DING, Carrie Position: S ED RN W/OE and Tasks Member Role: Patient Care Provider Care Team Related Persons Name: PT SAYS NO ONE, NO ONE Name: GRIFFIN PRIETO Address: home [address] [place] [address] Name: MARYAN PRIETO Address: [place] [address] [address]
--- OUTSIDE RECORDS SUMMARY | 2024-04-09 23:52 | XMS_ITS | Continuity of Care Document ---
Author Organization [facility] Address [address] [place] [address]- Care Team Providers Care Arcade Technician Name Role Phone Jessica MANDARIN SPEAKING NANNY, Ruddy W Primary Care Physician [phone] Encounter [facility] [place] [place] Date(s): 05/25/20 - 06/01/20 [facility] [address] [place] [address]- [place] Attending Physician: Alex Sharma MD Admitting Physician: Alex Sharma MD Referring Physician: Annie C[place], Echo Quigley Allergies, Adverse Reactions, Alerts Substance Reaction Severity [...] Date: 05/15/17 Status: Ordered Problem List Condition Effective Dates Status Health Status Inform ant DVT (deep venous thrombosis)(Confirmed) Active GENITAL HERPES, UNSPECIFIED(Confirmed) Active x 3(Confirmed) Active Migraine without aura(Confirmed) Active Social history(Confirmed) 1 Active Ulcerative colitis(Confirmed) Active Venous varices(Confirmed) Active 1Engaged, nonsmoker. Vital Signs Most recent to oldest [Reference Range]: 1 Height 161 cm (05/25/20 10:18 AM) Weight 93.1 kg (05/25/20 10:18 AM) Pulse Rate [55-90 bpm] 62 bpm (05/25/20 10:18 AM) Body Mass Index [18.5-24.99] 35.92 *>HHI* (05/25/20 10:18 AM) Blood Pressure [90-138/55-84 mm Hg] 129/ 73mm Hg (05/25/20 10:18 AM) Blood pressure sites Arm, left (05/25/20 10:18 AM) Weight Obtained Via Standing scale (05/25/20 10:18 AM) Social History Social History Type Response Smoking Status Never smoker entered on: 09/24/13 Sex
--- OUTSIDE RECORDS SUMMARY | 2024-04-09 23:52 | XMS_ITS | Continuity of Care Document ---
Author Organization [facility] Address [address] [facility], 3r d Floor, [address] [place] [address]- Care Team Providers Care Stores Clerk Name Role Phone Vivian WORKMAN, He Huitron Primary Care Physician Encounter [facility] [place] Date(s): 07/20/22 - 08/19/22 [facility] [address], 3[address] Floor, [address] [place] [id number] Allergies, Adverse Reactions, Alerts Substance Reaction Severity [...] Personnel Name: Leticia DING, Letty Henley Position: [facility] OB RN Member Role: Primary Care Nurse Name: Vivian WORKMAN, He Huitron Position: [facility] Outreach Member Role: PCP Address: Address: [address] [place] [address] Name: Jazzmine Fonseca RN Position: [facility] OB RN Member Role: Primary Care Nurse Name: Chanel Ascencio RN Position: [facility] OB RN Member Role: Primary Care Nurse Name: Ashley Gardner DO Position: [facility] SCADA OPERATOR MD Member Role: Lifetime SCADA OPERATOR Physician Address: Address: [address] [place] [address] [address]- Care Team Related Persons Name: PT SAYS NO ONE, NO ONE Name: GRIFFIN PRIETO Address: [address] [place] [address] Name: MARYAN PRIETO Address: [address] [address]
--- OUTSIDE RECORDS SUMMARY | 2024-04-09 23:52 | XMS_ITS | Continuity of Care Document ---
Author Organization [facility] Address [address] [place] [address]- Care Team Providers Care Spark Plug Assembler Name Role Phone He Park MD Primary Care Physician Encounter [facility] [place] Date(s): 11/24/22 - 04/27/23 [facility] Care [address] [place] [id number] Discharge Disposition: A-D/C Home Attending Physician: Trisha Modi MD Admitting Physician: Venkatesh Mora MD Referring Physician: He Park MD Allergies, Adverse Reactions, Alerts Substance Reaction [...] 11/23/22 15:29:00 EDT, Route to Pharmacy Electronically, [facility], Partial fill upon patient request [...] Team Personnel Name: William Eddy RN Position: [facility] RN Member Role: Primary Care Nurse Name: Letty Kelly RN Position: [facility] OB RN Member Role: Primary Care Nurse Name: He Park MD Position: [facility] Hospital Medicine Member Role: PCP Address: Address: [address] [place] [address] Name: Rodrick Kuhn RN Position: [facility] RN Member Role: Primary Care Nurse Name: Jazzmine Fonseca RN Position: [facility] OB RN Member Role: Primary Care Nurse Name: Chanel Ascencio RN Position: [facility] OB RN Member Role: Primary Care Nurse Name: Ashley Gardner DO Position: [facility] HEALTH AND SAFETY TECH MD Member Role: Lifetime HEALTH AND SAFETY TECH Physician Address: Address: [address] [place], [place] [address] [place] [address]- [place] Care Team Related Persons Name: PT SAYS NO ONE, NO ONE Name: DANIEL PRIETO Address: home [address] [place] [address] Name: GRIFFIN PRIETO Address: home [address] [place] [address] Name: MARYAN PRIETO Address: [address] [place] [address]
--- OUTSIDE RECORDS SUMMARY | 2024-04-09 23:52 | XMS_ITS | Continuity of Care Document ---
Author Organization [facility] Address [address], [address] Floor, [address] [place] [address]- Care Team Providers Care Enterprise Records Analyst Name Role Phone Vivian WORKMAN, He Huitron Primary Care Physician Encounter [facility] [place] Date(s): 12/13/22 - 01/12/23 [facility] [address], 3rd Floor, [address] [place] [id number] Attending Physician: Raquel Beard Admitting Physician: Admtr, Raquel Referring Physician: Admtr, [...] 11/23/22 15:29:00 EDT, Route to Pharmacy Electronically, [facility], Partial fill upon patient [...] Care team information Care Team Personnel Name: Surjit DING, William Position: [facility] RN Member Role: Primary Care Nurse Name: Leticia DING, Letty Henley Position: [facility] OB RN Member Role: Primary Care Nurse Name: Vivian WORKMAN, He Huitron Position: [facility] Hospital Medicine Member Role: PCP Address: Address: [address] [place] [address] Name: Rodrick Kuhn RN Position: [facility] RN Member Role: Primary Care Nurse Name: Jazzmine Fonseca RN Position: [facility] OB RN Member Role: Primary Care Nurse Name: Chanel Ascencio RN Position: [facility] OB RN Member Role: Primary Care Nurse Name: Bela Harris RN Position: [facility] RN Member Role: Primary Care Nurse Name: Ashley Gardner DO Position: [facility] FORGE PRESS OPERATOR MD Member Role: Lifetime FORGE PRESS OPERATOR Physician Address: Address: [address] [place], [place] [address] [place] [address]- [place] Care Team Related Persons Name: PT SAYS NO ONE, NO ONE Name: DANIEL PRIETO Address: home [address] [place] [address] Name: GRIFFIN PRIETO Address: home [address] [place] [address] Name: MARYAN PRIETO Address: [address] [place] [address]
--- OUTSIDE RECORDS SUMMARY | 2024-04-09 23:52 | XMS_ITS | Continuity of Care Document ---
Author Organization [facility] Address [address] [place] [address]- Care Team Providers Care Psychologist Clinical Name Role Phone Keyur CLEVELAND, Rosemary Goldstein Primary Care Physician Encounter [facility] [place] Date(s): 04/05/24 - 04/06/[address] [address]- Encounter Diagnosis Back ache(Final) - 04/06/24 Back pain(Final) - 04/06/24 Discharge Disposition: A-D/C Home Attending Physician: Mariela Tian MD Admitting Physician: Mariela Tian MD Referring Physician: Not on Staff, Referring [...] 11/23/22 15:29:00 EDT, Route to Pharmacy Electronically, [facility], Partial fill upon patient request [...] Status: Ordered gabapentin 400 mg oral capsule 800 mg, Capsule, By Mouth, 04/06/24 9:00:00 EDT Start Date: 04/06/24 Stop Date: 04/06/24 Status: Completed ibuprofen 600 mg oral tablet [...] Active Venous varices Confirmed Active 1Engaged, nonsmoker. Vital Signs Most recent to oldest [Reference Range]: 1 2 3 Height 160 cm (04/06/24 12:03 PM) 160 cm (04/06/24 9:41 AM) 160 cm (04/06/24 8:17 AM) Weight 68 kg (04/06/24 12:03 PM) 68 kg (04/06/24 9:41 AM) 68 kg (04/06/24 8:17 AM) Oxygen Saturation [94-100 %] 99 % (04/06/24 12:03 PM) 95 % (04/06/24 9:41 AM) 100 % (04/06/24 8:17 AM) Pulse Rate [55-90 bpm] 76 bpm (04/06/24 12:03 PM) 72 bpm (04/06/24 9:41 AM) 71 bpm (04/06/24 8:17 AM) Body Mass Index [18.5-24.99 kg/m2] 26.56 kg/m2 *H* (04/06/24 12:03 PM) 26.56 kg/m2 *H* (04/06/24 9:41 AM) 26.56 kg/m2 *H* (04/06/24 8:17 AM) Blood Pressure [90-138/55-84 mm Hg] 112/64mm Hg (04/06/24 12:03 PM) 106/74mm Hg (04/06/24 9:41 AM) 109/73mm Hg (04/06/24 8:17 AM) Respiratory Rate [16-30 br/min] 19 br/min (04/06/24 12:03 PM) 15 br/min *L* (04/06/24 9:41 AM) 18 br/min (04/06/24 8:39 AM) Temperature [96.8-100.4 DegF] 97.5 DegF (04/06/24 12:03 PM) 97.2 DegF (04/05/24 10:19 PM) Mode of Delivery (Oxygen) Room air (04/06/24 12:03 PM) Room air (04/06/24 9:41 AM) Room air (04/06/24 8:17 AM) Blood pressure sites Arm, left (04/06/24 12:03 PM) Temperature Route Temporal (04/06/24 12:03 PM) Temporal (04/05/24 10:19 PM) Dry Weight 68 kg (04/06/24 12:03 PM) 68 kg (04/06/24 9:41 AM) 68 kg (04/06/24 8:17 AM) Social History Social History Type Response Smoking Status Never smoker entered on: 09/24/13 Sex Note * Mariela Tian MD: PERFORM Event Display: Patient Education Leaflets Authored Date: [id number] Back Pain (Acute or Chronic) ?? [id number] Back Pain (Acute or Chronic) Back pain is one of the most common problems. The good news is that most people feel better in 1 to2 weeks, and most of the rest in 1 to 2 months. Most people can remain active. People who have pain??describe it differently???not??everyone is the same. ??? The pain can be sharp, stabbing, shooting, aching, cramping or burning. ??? Movement, standing,bending, lifting, sitting, or walking may worsen pain. ??? It can be limited to one spot or area, or it can be more generalized. ??? It can spread upwards, to the front, or go down your arms or legs (sciatica). ??? It can cause muscle spasm. Most of the time, mechanical problems with the muscles??or spine cause the pain. Mechanical problems??are usually caused by an injury to the muscles or ligaments. Illness can cause back pain, but it's usually not caused by a serious illness. Mechanical problems include:? Physical activity such as sports, exercise, work, or normal activity ??? Overexertion, lifting,pushing, pulling incorrectly or too aggressively ??? Sudden twisting, bending, or stretching from an accident, or accidental movement ??? Poor posture ??? Stretching or moving wrong, without noticingpain at the time ??? Poor coordination, lack of regular exercise (check with your doctor about this) ??? Spinal disc disease or arthritis ??? Stress Pain can also be related to , or illness such as appendicitis, bladder or kidney infections, kidney stones, and pelvic infections. Acute back pain usually gets better in??1 to 2 weeks. Back pain related to disk disease, arthritis in the spinal joints, or narrowing of the spinal canal (spinal stenosis) can become chronic and lastfor months or years. Unless you had a physical injury such as a car accident or fall, X-rays are usually not needed for the first assessment of back pain. If pain continues and does not respond to medical treatment, you may need X-rays and other tests. Home care Try this home care advice: ??? When in bed, try??to find a position of comfort. A firm mattress is best. Try lying flat on your back with pillows under your knees. You can also try lying on your side with your knees bent up toward your chest and a pillow between your knees. ??? At first, don't try to stretch out the sore spots. If there is a strain, it's not like the good soreness you get after exercising without an injury. In this case, stretching may make it worse. ??? Don't sit for long periods, as in a long car ride or during other??travel. This puts more stress on the lower back than standing or walking. ??? During the first 24 to 72 hours after an acute injury or flare up of chronic back pain, apply an ice pack to the painful area for 20 minutes and then remove it for 20 minutes. Do this over a period of 60 to 90 minutes or several times a day. This will reduce swelling and pain. Wrap the ice pack in a thintowel or plastic to protect your skin. ??? You can start with ice, then switch to heat. Heat (hot shower, hot bath, or heating pad) reduces pain and works well for muscle spasms. Heat can be applied to the painful area for 20 minutes then remove it for 20 minutes. Do this over a period of 60 to 90 minutes or several times a day. Don't sleep on a heating pad. It can lead to skin stauffer or tissue damage. ??? You can alternate ice and heat therapy. Talk with your doctor about??the best treatment for your back pain. ??? Therapeutic massage can help relax the back muscles without stretching them. ??? Be aware of safe lifting methods. Don't lift anything without stretching first. Medicines Talk to your doctor before using medicine, especially if you have other medical problems or are taking other medicines. ??? You may use phcy-zxp-qemjgxk medicine as directed on the bottle to control pain, unless another pain medicine was prescribed. Talk with your healthcare provider before using these medicines if you have chronic conditions such as diabetes, liver or kidney disease, stomach ulcers, or digestive bleeding. Also talk with your provider if you take blood thinners. ??? Be careful if you are given a prescription medicines, narcotics, or medicine for muscle spasms. They can cause drowsiness, affect your coordination, reflexes, and judgment. Don't drive or operate heavy machinery. ?? Follow-up care Follow up with your healthcare provider, or as advised.?? If X-rays were taken, you will be told of any new findings that may affect your care. ?? Call 911 Call 911 if any of the following occur: ??? Trouble breathing ??? Confusion ??? Very drowsy or trouble awakening ??? Fainting or loss of consciousness ??? Rapid or very slow heart rate ??? Loss of bowel or bladder control ?? When to seek medical advice Call your healthcare provider right away if any of these occur:? Pain gets worse or spreads toyour legs ??? Your bowel or bladder control changes ??? Fever ??? Blood in your urine ??? Weakness or numbness in one or both legs ??? Numbness in the groin or genital area ?? Last Reviewed Date: 2021 ?? 9824-8874 [employer]. All rights reserved. This information is not intended as a substitute for professional medical care. Always follow your healthcare professional's instructions. ?? * Mariela Tian MD: PERFORM Event Display: Patient Education Leaflets Authored Date: [id number] Hypokalemia ?? [id number] Hypokalemia Hypokalemia means a low level of potassium in the blood. This most often occurs in people who take water pills (diuretics). It can also result from severe vomiting or diarrhea.??You may also have it if you??take laxatives for long periods of time. It sometimes happens if you have low magnesium (hypo magnesemia). If you have this,??your??healthcare provider will treat the low??magnesium first. A mild case of hypokalemia often causes no symptoms. It is only found with blood testing. More severe potassium loss causes: ??? Overall weakness ??? Muscle or stomach cramps ??? Rapid or irregular heartbeats (heart palpitations) ??? Low blood pressure ??? Muscle weakness ??? Short-term paralysis in some people Home care ??? Take any potassium supplements as prescribed. ??? Eat foods rich in potassium. High amounts of potassium are found in baked potatoes, baked sweet potatoes, spinach, cantaloupe, cod, halibut, salmon, and scallops. White, red, or herring beans are also very good sources. So are avocados, orange juice, bananas, and tomato juice. ??? If you take certain types of diuretics, you will also need to take potassium supplements. Talk with your healthcare provider. ?? Follow-up care Follow up with your??healthcare provider??for a repeat blood test within the next week, or as advised by our staff. ?? When to get medical advice Call your healthcare provider right away if you have: ??? Increased weakness,??fatigue, or muscle cramps ??? Dizziness ?? Call 911 Call 911 if you have: ??? Irregular heartbeat, extra beats, or very fast heart rate ??? Loss of consciousness ?? Last Reviewed Date: 2022 ?? [id number] [employer]. All rights reserved. This information is not intended as a substitute for professional medical care. Always follow your healthcare professional's instructions. ?? Patient Care team information Care Team Personnel Name: William Eddy RN Position: [facility] RN Member Role: Primary Care Nurse Name: Letty Kelly RN Position: [facility] OB RN Member Role: Primary Care Nurse Name: Rosemary Baer NP Position: [facility] Outreach Member Role: PCP Address: Address: [address] [place] [address]- Name: Rodrick Kuhn RN Position: [facility] RN Member Role: Primary Care Nurse Name: Jazzmine Fonseca RN Position: [facility] OB RN Member Role: Primary Care Nurse Name: Chanel Ascencio RN Position: [facility] OB RN Member Role: Primary Care Nurse Name: Ashley Gardner DO Position: [facility] CVICU RN MD Member Role: Lifetime CVICU RN Physician Address: Address: [address] [place], [place] [address] [place] [address]- Care Team Related Persons Name: DANIEL PRIETO Address: home [address] [place] [address] Name: GRIFFIN PRIETO Address: home [address] [place] [address] Name: MARYAN PRIETO Address: [address] [place] [address]
--- OUTSIDE RECORDS SUMMARY | 2024-04-09 23:52 | XMS_ITS | Continuity of Care Document ---
Author Organization [facility] Address [address] [facility] 2nd Floor [address] [place] [address]- Care Team Providers Care Progress Developer Name Role Phone Keyur CLEVELAND, Rosemary Goldstein Primary Care Physician [phone] Encounter [facility] [place] Date(s): 01/02/24 - 03/29/24 [facility] [place] [address] [place] [address]- Encounter Diagnosis Leg swelling(Discharge Diagnosis) - 02/28/24 Venous insufficiency of both lower extremities(Discharge Diagnosis) - 02/28/24 Attending Physician: Everardo CLEVELAND, Haydee Chen Admitting Physician: Everardo CLEVELAND, Haydee Chen Referring Physician: Keyur CLEVELAND, Rosemary Goldstein Allergies, Adverse Reactions, Alerts Substance Reaction Severity [...] 11/23/22 15:29:00 EDT, Route to Pharmacy Electronically, [facility], Partial fill upon patient request [...] Condition Confirmation Course Effective Dates Status Health atus Informant DVT (deep venous thrombosis) Confirmed Active GENITAL HERPES, UNSPECIFIED Confirmed Active x 3 Confirmed Active Migraine without aura Confirmed Active Social history 1 Confirmed Active Ulcerative colitis Confirmed Active Venous varices Confirmed Active 1Engaged, nonsmoker. Diagnosis Diagnosis Type Effective Dates Health Status Clinical Service Informant Leg swelling Discharge Diagnosis 02/28/24 Venous insufficiency of both lower extremities Discharge Diagnosis 02/28/24 Social History Social History Type Response Smoking Status Never smoker entered on: 09/24/13 Sex Patient Care team information Care Team Personnel Name: William Eddy RN Position: [facility] RN Member Role: Primary Care Nurse Name: Leticia DING, Letty Henley Position: [facility] OB RN Member Role: Primary Care Nurse Name: Rosemary Baer NP Position: [facility] Outreach Member Role: PCP Address: Address: [address] [place] [address]- Name: Rodrick Kuhn RN Position: [facility] RN Member Role: Primary Care Nurse Name: Jazzmine Fonseca RN Position: [facility] OB RN Member Role: Primary Care Nurse Name: Chanel Ascencio RN Position: [facility] OB RN Member Role: Primary Care Nurse Name: Ashley Gardner DO Position: [facility] COMMANDING OFFICER TRAFFIC DIVISION MD Member Role: Lifetime COMMANDING OFFICER TRAFFIC DIVISION Physician Address: Address: [address] [place] [address] [address]- Care Team Related Persons Name: PT SAYS NO ONE, NO ONE Name: DANIEL PRIETO Address: home [address] [place] [address] Name: GRIFFIN PRIETO Address: home [address] [place] [address] Name: MARYAN PRIETO Address: [address] [place] [address]
--- OUTSIDE RECORDS SUMMARY | 2024-04-09 23:52 | XMS_ITS | Continuity of Care Document ---
Author Organization [facility] Address [address] [facility], [address]r d Floor, [address] [place] [address]- Care Team Providers Care Business School Dean Name Role Phone Vivian WORKMAN, He Huitron Primary Care Physician Encounter [facility] [place] Date(s): 09/02/22 - 10/02/22 [facility] [address], [address] Floor, [address] [place] [address] Attending Physician: AdmtrRaquel Admitting Physician: AdmtrRaquel Referring Physician: Admtr, Ar8 Allergies, Adverse Reactions, [...] Personnel Name: Leticia DING, Letty Henley Position: [facility] OB RN Member Role: Primary Care Nurse Name: He Park MD Position: [facility] Outreach Member Role: PCP Address: Address: [address] [place] [address]- Name: Jazzmine Fonseca RN Position: [facility] OB RN Member Role: Primary Care Nurse Name: Chanel Ascencio RN Position: [facility] OB RN Member Role: Primary Care Nurse Name: Ashley Gardner DO Position: [facility] IMMIGRATION PATROL INSPECTOR Member Role: Lifetime IMMIGRATION PATROL INSPECTOR Physician Address: Address: [address] [place], [place] [address] [place] [address]- Care Team Related Persons Name: PT SAYS NO ONE, NO ONE Name: GRIFFIN PRIETO Address: home [address] [place] [address] Name: MARYAN PRIETO Address: [place] [address] [address]
--- OUTSIDE RECORDS SUMMARY | 2024-04-09 23:52 | XMS_ITS | Continuity of Care Document ---
Author Organization [facility] oenterology Address Unknown Care Team Providers Care Sports Instructor Name Role Phone Jessica SENIOR SAS DEVELOPER, Ruddy W Primary Care Physician Encounter [facility] [place] Date(s): 09/20/21 - 09/27/21 [facility] Attending Physician: Venus Moore MD Admitting Physician: Venus Moore MD Referring Physician: He Park MD Allergies, [...] colitis(Confirmed) Active Venous varices(Confirmed) Active 1Engaged, nonsmoker. Social History Social History Type Response Smoking Status Never smoker entered on: 09/24/13 Sex
--- OUTSIDE RECORDS SUMMARY | 2024-04-09 23:52 | XMS_ITS | Continuity of Care Document ---
Author Organization [facility] o[facility]ology Address Unknown Care Team Providers Care Rate Engineer Name Role Phone Jessica CLEVELAND, Ruddy W Primary Care Physician Encounter [facility] [place] Date(s): 09/20/21 - 10/20/21 [facility] Attending Physician: Admtr, Ar8 Admitting Physician: Admtr, Ar8 Referring Physician: Admtr, Ar8 Allergies, Adverse Reactions, [...]
--- OUTSIDE RECORDS SUMMARY | 2024-04-09 23:52 | XMS_ITS | Continuity of Care Document ---
Author Organization [facility] Address [address] [facility] 2nd Floor [address] [place] [address]- Care Team Providers Care Wash Tub Machine Operator Name Role Phone Keyur CLEVELAND, Rosemary Goldstein Primary Care Physician Encounter [facility] [place] Date(s): 02/28/24 - 03/29/24 [facility] [address] [address]- Attending Physician: AdmtrRaquel Admitting Physician: Admtr, Ar8 Referring Physician: Admtr, [...] 11/23/22 15:29:00 EDT, Route to Pharmacy Electronically, [facility], Partial fill upon patient request [...] Status Never smoker entered on: 09/24/13 Sex Cardiology * Event Display: Non Cardiovascular Results Authored Date: Laboratory * Event Display: Non Lab Results Authored Date: Patient Care team information Care Team Personnel Name: William Eddy RN Position: S RN Member Role: Primary Care Nurse Name: Letty Kelly RN Position: [facility] OB RN Member Role: Primary Care Nurse Name: Rosemary Baer NP Position: [facility] Outreach Member Role: PCP Address: Address: [address] [place] [address] [place] [address]- Name: Rodrick Kuhn RN Position: [facility] RN Member Role: Primary Care Nurse Name: Jazzmine Fonseca RN Position: [facility] OB RN Member Role: Primary Care Nurse Name: Chanel Ascencio RN Position: [facility] OB RN Member Role: Primary Care Nurse Name: Ashley Gardner DO Position: [facility] CLEAT LAYER MD Member Role: Lifetime CLEAT LAYER Physician Address: Address: [address] [place] [address] [address]- Care Team Related Persons Name: PT SAYS NO ONE, NO ONE Name: DANIEL PRIETO Address: home [address] [place] [address] Name: GRIFFIN PRIETO Address: [address] [place] [address] Name: MARYAN PRIETO Address: [address] [place] [address]
--- OUTSIDE RECORDS SUMMARY | 2024-04-09 23:52 | XMS_ITS | Continuity of Care Document ---
Author Organization [facility] Address [address] [place] [address]- Care Team Providers Care Highwall Drill Operator Name Role Phone Keyur [place], Rosemary Goldstein Primary Care Physician [place] [facility] 03/31/24 - 03/31/[address] [address]- Discharge Disposition: A-D/C Home Attending Physician: Yuniel Hu MD Admitting Physician: Yuniel Hu MD Referring Physician: Not on Staff, Referring [...] 11/23/22 15:29:00 EDT, Route to Pharmacy Electronically, [facility], Partial fill upon [...] Print Requisition Start Date: 08/09/17 Status: Ordered lidocaine 4% topical film 1 patch, Topically, 2 times a day, for 3 days, # 6 patch, 0 Refills, Acute 04/03/24 18:32:00 EDT, 03/31/24 18:32:00 EDT, Film, [id number], Partial fill upon patient request if the prescription is for a schedule II opioid drug., 1 patch Topical... Start Date: 03/31/24 Stop Date: 04/03/24 Status: Ordered Omeprazole = 40 mg, By [...] List Condition Confirmation Course Effective Dates Status [facility] Informant DVT (deep venous thrombosis) Confirmed Active GENITAL HERPES, UNSPECIFIED Confirmed Active x 3 Confirmed Active Migraine without aura Confirmed Active Social history 1 Confirmed Active Ulcerative colitis Confirmed Active Venous varices Confirmed Active 1Engaged, nonsmoker. Results Radiology Reports * Exam Date Time Procedure Performing Provider Status 03/31/24 5:[address] Lumbar Spine W/ Contrast Maura Garner; Auth (Verified) Notes: (CT Lumbar Spine W/ Contrast) Reason For Exam: Back Pain RESULT: CT Lumbar Spine W/ Contrast CT Abd/Pelvis W/ IV Contrast Only, CT Lumbar Spine W/ Contrast INDICATION: Hx of Present Illness: back pain, pt states she thinks it's due to fatty liver; Reason:Other:; Low back pain, abdominal pain; Clinical Question(s): Diverticulitis; Order Comment: Patientunable to tolerate PO contrast. CLINICAL QUESTION: Diverticulitis TECHNIQUE: Spiral CT through the abdomen and pelvis with IV contrast formatted in 3 planes. 100 cc Omnipaque 300 The study was performed oral contrast. Weight- based protocol using automatic tube modulation was used to optimize exposure parameters. Thin section axial images were acquired through the lumbar spine. Bone and soft tissue algorithms were reconstructed along with coronal and sagittal reformats. Weight-based protocol using automatic tube modulation was used to optimize exposure parameters. CTDIvol Body: 15.10 mGy, DLP Body: 794 mGy*cm. COMPARISON: 02/19/2016 FINDINGS: Stone Gang Sawyer, Lines, and Tubes: No acute findings. LUNG BASES: Lung bases are clear. ABDOMINAL WALL: Unremarkable. BLOOD VESSELS: Normal. No aneurysm. LYMPH NODES: No retroperitoneal or abdominal adenopathy Incompletely imaged possibly enlarged left inguinal nodes measuring up to 1.4 x 2.4 cm, with adjacent clips. This is probably stable from a prior CT the abdomen and pelvis 11/22/2022. LIVER, GALLBLADDER, AND SPLEEN, PANCREAS: Portal vein and hepatic veins are patent. Status post cholecystectomy. No acute finding. GENITOURINARY: Normal adrenal glands. There is no hydronephrosis. Multiple small bilateral renal calculi. No ureteral calculi. Bilateral small renal cysts. Unremarkable bladder. No suspicious pelvic mass. STOMACH, SMALL BOWEL AND LARGE BOWEL, AND THE PERITONEUM: No acute bowel pathology. Appendix is not definitively seen with no secondary signs for appendicitis. BONES INCLUDING THE LUMBAR SPINE: There is no fracture or subluxation. There is degenerative moderate loss of disc height at L4/L5 with mild disc bulge. IMPRESSION: No acute bowel pathology. Multiple nonobstructing small bilateral renal calculi. No acute bony findings. WSN: [id number] Ordering Physician: Yuniel Hu Dictated By: Ana Newby MD Dictated Date/Time: 03/31/24 6:21 pm Reviewed By: Ana Newby MD Signed By: Ana Newby MD Signed Date/Time: 03/31/24 6:21 pm Transcribed By: BRADLEY Transcribed Date/Time: 03/31/24 5:27 pm * Exam Date Time Procedure Performing Provider Status 03/31/24 5:[address] Abd/Pelvis W/ IV Contrast Only Maura Garner Tiffany; Auth (Verified) Notes: (CT Abd/Pelvis W/ IV Contrast Only) Reason For Exam: Low back pain, abdominal pain;Other: RESULT: CT Abd/Pelvis W/ IV Contrast Only CT Abd/Pelvis W/ IV Contrast Only, CT Lumbar Spine W/ Contrast INDICATION: Hx of Present Illness: back pain, pt states she thinks it's due to fatty liver; Reason:Other:; Low back pain, abdominal pain; Clinical Question(s): Diverticulitis; Order Comment: Patientunable to tolerate PO contrast. CLINICAL QUESTION: Diverticulitis TECHNIQUE: Spiral CT through the abdomen and pelvis with IV contrast formatted in 3 planes. 100 cc Omnipaque 300 The study was performed oral contrast. Weight- based protocol using automatic tube modulation was used to optimize exposure parameters. Thin section axial images were acquired through the lumbar spine. Bone and soft tissue algorithms were reconstructed along with coronal and sagittal reformats. Weight-based protocol using automatic tube modulation was used to optimize exposure parameters. CTDIvol Body: 15.10 mGy, DLP Body: 794 mGy*cm. COMPARISON: 02/19/2016 FINDINGS: Stone Gang Sawyer, Lines, and Tubes: No acute findings. LUNG BASES: Lung bases are clear. ABDOMINAL WALL: Unremarkable. BLOOD VESSELS: Normal. No aneurysm. LYMPH NODES: No retroperitoneal or abdominal adenopathy Incompletely imaged possibly enlarged left inguinal nodes measuring up to 1.4 x 2.4 cm, with adjacent clips. This is probably stable from a prior CT the abdomen and pelvis 11/22/2022. LIVER, GALLBLADDER, AND SPLEEN, PANCREAS: Portal vein and hepatic veins are patent. Status post cholecystectomy. No acute finding. GENITOURINARY: Normal adrenal glands. There is no hydronephrosis. Multiple small bilateral renal calculi. No ureteral calculi. Bilateral small renal cysts. Unremarkable bladder. No suspicious pelvic mass. STOMACH, SMALL BOWEL AND LARGE BOWEL, AND THE PERITONEUM: No acute bowel pathology. Appendix is not definitively seen with no secondary signs for appendicitis. BONES INCLUDING THE LUMBAR SPINE: There is no fracture or subluxation. There is degenerative moderate loss of disc height at L4/L5 with mild disc bulge. IMPRESSION: No acute bowel pathology. Multiple nonobstructing small bilateral renal calculi. No acute bony findings. WSN: [id number] Ordering Physician: Yuniel Hu Dictated By: Ana Newby MD Dictated Date/Time: 03/31/24 6:21 pm Reviewed By: Ana Newby MD Signed By: Ana Newby MD Signed Date/Time: 03/31/24 6:21 pm Transcribed By: BRADLEY Transcribed Date/Time: 03/31/24 5:27 pm Vital Signs Most recent to oldest [Reference Range]: 1 2 Height 160 cm (03/31/24 6:52 PM) 160 cm (03/31/24 3:12 PM) Weight 69 kg (03/31/24 6:52 PM) 69 kg (03/31/24 3:12 PM) Oxygen Saturation [94-100 %] 100 % (03/31/24 6:52 PM) 100 % (03/31/24 3:12 PM) Pulse Rate [55-90 bpm] 61 bpm (03/31/24 6:52 PM) 92 bpm *H* (03/31/24 3:12 PM) Blood Pressure [90-138/55-84 mm Hg] 104/ 64mm Hg (03/31/24 6:52 PM) 128/73mm Hg (03/31/24 3:12 PM) Respiratory Rate [16-30 br/min] 18 br/mi n (03/31/24 6:52 PM) 18 br/min (03/31/24 3:12 PM) Temperature [96.8-100.4 DegF] 98.2 DegF (03/31/24 6:52 PM) 97.3 DegF (03/31/24 3:12 PM) Mode of Delivery (Oxygen) Room air (03/31/24 6:52 PM) Room air (03/31/24 3:12 PM) Blood pressure sites Arm, left (03/31/24 6:52 PM) Arm, right (03/31/24 3:12 PM) Temperature Route Temporal (8/18/24 6:52 PM) Temporal (03/31/24 3:12 PM) Dry Weight 69 kg (03/31/24 6:52 PM) 69 kg (03/31/24 3:12 PM) Weight Obtained Via Patient/family state d (03/31/24 3:12 PM) Dry Weight Obtained Via Patient/family s tated (03/31/24 3:12 PM) Social History Social History Type Response Smoking Status Never smoker entered on: 09/24/13 Sex Note * Yuniel Hu MD: PERFORM Event Display: Patient Education Leaflets Authored Date: [id number] Back Pain (Acute or Chronic) ?? [id number] Back Pain (Acute or Chronic) Back pain [...] taking other medicines. ??? You may use [id number] medicine as directed on the bottle to [...] area ?? Last Reviewed Date: 2021 ?? [id number] [employer]. All rights reserved. This information is not intended as a substitute for professional medical care. Always follow your healthcare professional's instructions. ?? Patient Care team information Care Team Personnel Name: William Eddy RN Position: [facility] RN Member Role: Primary Care Nurse Name: Letty Kelly RN Position: [facility] OB RN Member Role: Primary Care Nurse Name: Rosemary aBer NP Position: [facility] Outreach Member Role: PCP Address: Address: [address] [place] [id number] Name: Rodrick Kuhn RN Position: S RN Member Role: Primary Care Nurse Name: Jazzmine Fonseca RN Position: [facility] OB RN Member Role: Primary Care Nurse Name: Chanel Ascencio RN Position: [facility] OB RN Member Role: Primary Care Nurse Name: Ashley Gardner DO Position: [facility] INTERNET APPLICATION DEVELOPER MD Member Role: [employer] INTERNET APPLICATION DEVELOPER Physician Address: Address: [address] [place], [place] [address] [address]- [place] Care Team Related Persons Name: PT SAYS NO ONE, NO ONE Name: DANIEL PRIETO Address: home [address] [place] [address] Name: GRIFFIN PRIETO Address: home [address] [place] [address] Name: MARYAN PRIETO Address: home [address] [place] [address]
--- OUTSIDE RECORDS SUMMARY | 2024-04-09 23:52 | XMS_ITS | Continuity of Care Document ---
Author Organization [facility] Address [address] [facility] [address], [address], [address] [place] [id number]- Care Team Providers Care Car Driver Name Role Phone Vivian WORKMAN, He Huitron Primary Care Physician [place] [facility] [place]/22 [facility] [address], [address], [address] [place] [id number] Attending Physician: Maryan Wolfe MD Admitting Physician: [...] Personnel Name: Leticia DING, Letty Henley Position: [facility] OB RN Member Role: Primary Care Nurse Name: He Park MD Position: [facility] Outreach Member Role: PCP Address: Address: [address] [place] [address]- Name: Jazzmine Fonseca RN Position: [facility] OB RN Member Role: Primary Care Nurse Name: Chanel Ascencio RN Position: [facility] OB RN Member Role: Primary Care Nurse Name: Ashley Gardner DO Position: [facility] TYPESETTING MACHINE OPERATOR/TENDER Member Role: [employer] TYPESETTING MACHINE OPERATOR/TENDER Physician Address: Address: [address] [place], [place] [address] [place] [address]- Care Team Related Persons Name: PT SAYS NO ONE, NO ONE Name: GRIFFIN PRIETO Address: home [address] [place] [address] Name: MARYAN PRIETO Address: home [address] [address]
[2024-04-10 00:41] VITALS: BMI 25.5
[2024-04-10 00:43] VITALS: BP 93/62; PULSE 73; RESP 16; TEMP 36.1; O2SAT 100
--- NOTE | 2024-04-10 04:42 | PC.ADMIT ---
Delmy is a 39years old female with a significant past medical hx including Huntingtons Chorea, migraine headaches, ulcerative colitis, anxiety, previous DVT currently on Eliquis as well as Hx of recent CVA with M2 occlusion s/p thrombectomy. pt was presented to [facility] from home after family became concerned about potential delusional thought process. there is mention of a perosn called O who has been telling Delmy to do different things like get into a bath of scalding hot water in order to clean something off her skin. Patient arrived to M3 unit at 2345 on 12/09/23 with an admitting diagnosis of Adjustment D/O, mixed anxiety and depressed mood, major neurocognitive D/O due to [place]'s disease, unspecified severity, with other behavioral or psychological disturbance. pt is alert and oriented to self, place and time, but not to situation, pt signed a CV. Pt is calm, pleasant and cooperative with admission process. pt has a flat affect, with a soft, mumbling speech. pt denied anxiety and depression but endorses AVH. pt reported she is in the hospital because my kids brought me here, they think am crazy but I am not I do see spirits in my house and hear them talking . she endorses the spirit O that speaks with her and also endorses the other voices in her head just have conversations. pt contracted for safety, ambulates independently with steady gait but reports feeling weak and appears like her legs is giving up on her when she is walking. pt denied pain. pt's VSS. No visible skin openings noted, except for some pigmentation of her chest and back area which according to pt are liver spots from my liver failure . Med, rec. completed/provider notified/ hospitalist consulted for medical H&P. pt placed on 5mins check for safety. Belongings inventored/secured. Unit orientation provided.
[2024-04-10 07:31] VITALS: BP 85/54; PULSE 63; RESP 16; TEMP 36.4; O2SAT 100
[2024-04-10] MEDS: valACYclovir HCL 1,000 MG TABLET 1000 MG PO (08:55)
[2024-04-10] MEDS: Gabapentin 400 MG CAPSULE 800 MG PO ×4 (08:55→20:32)
[2024-04-10] MEDS: Omeprazole 20 MG CAPSULE.DR PO ×2 (08:56→20:33)
[2024-04-10] MEDS: Apixaban 5 MG TABLET PO ×2 (08:56→20:33)
[2024-04-10] MEDS: Aspirin Enteric Coated 81 MG TABLET.DR PO (08:56)
[2024-04-10] MEDS: Acetaminophen 325 MG TABLET 650 MG PO (09:01)
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
[2024-04-10] MEDS: QUEtiapine Fumarate 25 MG TABLET 12.5 MG PO (15:39)
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
--- NOTE | 2024-04-10 18:14 | PC.NURSE ---
Pt reported elevated anxiety and not feeling well, RN assessed BP 168/69 HR 65, T 97.7. Pt requested and received PRN Clonidine. Dr. Sean dinh.
[2024-04-10 20:00] VITALS: BP 106/66; PULSE 70; RESP 16; TEMP 36.8; O2SAT 99
[2024-04-10] MEDS: traZODone HCL 50 MG TABLET PO (20:33)
[2024-04-10] MEDS: Topiramate 100 MG TABLET 200 MG PO (20:34)
[2024-04-10] MEDS: QUEtiapine Fumarate 25 MG TABLET PO (20:34)
[2024-04-11 07:00] VITALS: BMI 25.4
[2024-04-11 08:00] VITALS: BP 103/59; PULSE 65; RESP 16; TEMP 36.7; O2SAT 100
--- NOTE | 2024-04-11 08:43 | P.PNPSI_ITS ---
Subjective Subjective Date of Service: 04/11/24 Reason For Visit: Adjustment disorder with mixed anxiety and depress Interim History: Reviewed with Dr. Bain. Laying in bed most of shift. Keeping to self. Guarded. Soft spoken. Patient reports feeling the same as yesterday . She reports auditory hallucinations that are quieting down ; patient did not go into detail as to what auditory hallucinations are saying. Patient denies SI/HI/VH. Per nursing, patient slept 8 hours last night. Medication Compliance: Yes Attending Groups: No Mental Status Exam Mental Status Exam Patient Appearance: Disheveled Patient Orientation: Person, Place and Situation Level of Consciousness: Awake and Alert Patient Behavior: Guarded Mood Description: Calm and Anxious Affect Description: Flat Ability to Follow Directions: Good Speech Pattern: Soft-Spoken Hallucinations: Auditory Thought Process: Linear Diagnostics Vital Signs (24Hr): Vital Signs - 24 hr 04/10/24 20:00 04/11/24 08:00 Temperature 98.2 F 98.0 F Pulse Rate 70 65 Respiratory Rate 16 16 Blood Pressure 106/66 103/59 L Pulse Oximetry 99 100 Oxygen Delivery Method Room Air Room Air BMI result Body Mass Index 25.5 Labs 04/11/24 09:25 Medications Medications Current Medications Acetaminophen (Acetaminophen 325 Mg Tablet) 650 mg PO Q6H PRN PRN Reason: Headache/Pain Mild Scale (1-3) Last Admin: 04/10/24 09:01 Dose: 650 mg Al Hydroxide/Mg Hydroxide (Magnesium Hydrox/Alum Hydrox 30 Ml Oral.Susp) 30 ml PO Q6H PRN PRN Reason: Heartburn/Nausea Apixaban (Apixaban 5 Mg Tablet) 5 mg PO BID [facility] Last Admin: 04/10/24 20:33 Dose: 5 mg Aspirin (Aspirin Enteric Coated 81 Mg Tablet.) 81 mg PO DAILY [facility] Last Admin: 04/10/24 08:56 Dose: 81 mg Cephalexin HCl (Cephalexin 500 Mg Capsule) 500 mg PO BID [facility] Stop: 04/13/24 21:01 Gabapentin (Gabapentin 400 Mg Capsule) 800 mg PO QID [facility] Last Admin: 04/10/24 20:32 Dose: 800 mg Hydroxyzine HCl (Hydroxyzine Hcl 25 Mg Tablet) 25 mg PO Q6H PRN PRN Reason: Anxiety Magnesium Hydroxide (Milk Of Magnesia 30 Ml Oral.Susp) 30 ml PO DAILY PRN PRN Reason: Constipation Nicotine Polacrilex (Nicotine Polacrilex 2 Mg Gum) 4 mg BUCCAL Q2H PRN PRN Reason: Nicotine Cravings Non-Formulary Medication (Cefpodoxime) 200 mg PO BID [facility] Omeprazole (Omeprazole 20 Mg Capsule.Dr) 20 mg PO BID [facility] Last Admin: 04/10/24 20:33 Dose: 20 mg Quetiapine Fumarate (Quetiapine Fumarate 25 Mg Tablet) 25 mg PO BEDTIME [facility] Last Admin: 04/10/24 20:34 Dose: 25 mg Topiramate (Topiramate 100 Mg Tablet) 200 mg PO BEDTIME [facility] Last Admin: 04/10/24 20:34 Dose: 200 mg Trazodone HCl (Trazodone Hcl 50 Mg Tablet) 50 mg PO BEDTIME MRX1 PRN PRN Reason: Insomnia Last Admin: 04/10/24 20:33 Dose: 50 mg Valacyclovir HCl (Valacyclovir Hcl 1,000 Mg Tablet) 1,000 mg PO DAILY [facility] Last Admin: 04/10/24 08:55 Dose: 1,000 mg Allergies Allergies Allergy/AdvReac Type Severity Reaction Status Date / Time acetaminophen [From Vicodin] Allergy Unknown Verified 04/10/24 02:04 amoxicillin Allergy Unknown Verified 04/10/24 02:04 calcium carbonate Allergy Unknown Verified 04/10/24 02:04 [From Florical] hydrocodone [From Vicodin] Allergy Unknown Verified 04/10/24 02:04 sodium fluoride Allergy Unknown Verified 04/10/24 02:04 [From Florical] sulfamethoxazole Allergy Unknown Verified 04/10/24 02:04 [From Bactrim] trimethoprim [From Bactrim] Allergy Unknown Verified 04/10/24 02:04 Assessment & Plan Assessment & Plan (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 - Seymour's disease (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 add seroquel 25 mg QHS for psychosis in manuel's chorea. UTI - missed doses of cefpodoxime. requires new course of antibx? 04/11: Laying in bed most of shift. Keeping to self. Guarded. Soft spoken. Patient reports feeling the same as yesterday . She reports auditory hallucinations that are quieting down ; patient did not go into detail as to what auditory hallucinations are saying. Patient denies SI/HI/VH. Per nursing, patient slept 8 hours last night. Continue current treatment plan. Patient educated on: medication risk/benefits Reason for continued inpatient stay Substantial Risk for: med/psych decompensation Time Spent With Patient Time: Total time managing care of this patient today _20___ minutes.
[2024-04-11] MEDS: Aspirin Enteric Coated 81 MG TABLET.DR PO (09:11)
[2024-04-11] MEDS: Omeprazole 20 MG CAPSULE.DR PO ×2 (09:11→20:21)
[2024-04-11] MEDS: Apixaban 5 MG TABLET PO ×2 (09:11→20:22)
[2024-04-11] MEDS: valACYclovir HCL 1,000 MG TABLET 1000 MG PO (09:11)
[2024-04-11] MEDS: Gabapentin 400 MG CAPSULE 800 MG PO ×4 (09:11→20:21)
[2024-04-11] MEDS: cephALEXin 500 MG CAPSULE PO ×2 (09:38→20:21)
[2024-04-11 10:38] LABS: Alanine Aminotransferase 17 U/L (0-31); Albumin Level 4.3 g/dL (3.5-5.0); Alkaline Phosphatase 50 U/L (39-117); Anion Gap 17 (12-20); Aspartate Amino Transferase 15 U/L (5-31); Bilirubin Total 0.7 mg/dL (0.0-1.0); Blood Urea Nitrogen 6 mg/dL (9-16); Calcium 9.5 mg/dL (8.4-10.2); Carbon Dioxide 21 mmol/L (22-29); Chloride 106 mmol/L (96-108); Cholesterol 171 mg/dL (<200); Creatinine Clr Calc Pharmacy 107.2; Estimated Glomerular Filt Rate > 60; Glucose Fasting 79 mg/dL (60-99); HDL Cholesterol 37 mg/dL (>40); LDL Cholesterol Calculated 112 mg/dL (<100); Sodium 141 mmol/L (135-145); Total Protein 7.1 g/dL (6.5-8.0); Triglycerides 114 mg/dL (<150)
[2024-04-11 20:00] VITALS: BP 124/70; PULSE 75; RESP 16; TEMP 36.5; O2SAT 100
[2024-04-11] MEDS: Topiramate 100 MG TABLET 200 MG PO (20:21)
[2024-04-11] MEDS: traZODone HCL 50 MG TABLET PO (20:21)
[2024-04-11] MEDS: QUEtiapine Fumarate 25 MG TABLET PO (20:21)
[2024-04-12 07:45] VITALS: BP 113/61; PULSE 68; RESP 14; TEMP 36.8; O2SAT 100
[2024-04-12] MEDS: Gabapentin 400 MG CAPSULE 800 MG PO ×4 (08:44→20:56)
[2024-04-12] MEDS: valACYclovir HCL 1,000 MG TABLET 1000 MG PO (08:44)
[2024-04-12] MEDS: Apixaban 5 MG TABLET PO ×2 (08:45→20:57)
[2024-04-12] MEDS: Omeprazole 20 MG CAPSULE.DR PO ×2 (08:45→20:57)
[2024-04-12] MEDS: cephALEXin 500 MG CAPSULE PO ×2 (08:45→20:56)
[2024-04-12] MEDS: Aspirin Enteric Coated 81 MG TABLET.DR PO (08:45)
--- NOTE | 2024-04-12 16:07 | P.PNPSI_ITS ---
Subjective Subjective Date of Service: 04/12/24 Reason For Visit: Adjustment disorder with mixed anxiety and depress Interim History: reports AH continue but are improved. agreeable to take seroquel 12.5 mg PRNs for anxiety and increase HS seroquel to 50 mg. per staff, anx 10. denies depression. withdrawn. no groups. slept 8 hours. AH improving a bit. Mental Status Exam Mental Status Exam Narrative: dressed in personal clothes. disheveled. left facial droop. cooperative. no PMA/PMR. no abnormal movements noted. speech somewhat dysarthric from facial droop, it appears. normal rate, amount. decr loudness and flattened tone. nml latency. thoughts linear and logical, no delusions expressed. affect more flexible, hypo-intense, non-labile. mood happy. no SI/SIBI/HI expressed. endorses AVH, attenuated from admission. Diagnostics Vital Signs (24Hr): Vital Signs - 24 hr 04/11/24 20:00 04/12/24 07:45 Temperature 97.7 F 98.3 F Pulse Rate 75 68 Respiratory Rate 16 14 Blood Pressure 124/70 113/61 Pulse Oximetry 100 100 Oxygen Delivery Method Room Air Room Air BMI result Body Mass Index 25.4 Labs 04/11/24 09:25 Labs: Laboratory Results - last 48 hr 04/11/24 09:25 Sodium 141 Potassium 3.0 L Chloride 106 Carbon Dioxide 21 L Anion Gap 17 BUN 6 L Creatinine 0.64 Estim Creat Clear Calc 107.2 Estimated GFR > 60 Fasting Glucose 79 Calcium 9.5 Total Bilirubin 0.7 AST 15 ALT 17 Alkaline Phosphatase 50 Total Protein 7.1 Albumin 4.3 Triglycerides 114 Cholesterol 171 LDL Cholesterol, Calc 112 H HDL Cholesterol 37 L Medications Medications Current Medications Acetaminophen (Acetaminophen 325 Mg Tablet) 650 mg PO Q6H PRN PRN Reason: Headache/Pain Mild Scale (1-3) Last Admin: 04/10/24 09:01 Dose: 650 mg Al Hydroxide/Mg Hydroxide (Magnesium Hydrox/Alum Hydrox 30 Ml Oral.Susp) 30 ml PO Q6H PRN PRN Reason: Heartburn/Nausea Apixaban (Apixaban 5 Mg Tablet) 5 mg PO BID [facility] Last Admin: 04/12/24 08:45 Dose: 5 mg Aspirin (Aspirin Enteric Coated 81 Mg Tablet.) 81 mg PO DAILY [facility] Last Admin: 04/12/24 08:45 Dose: 81 mg Cephalexin HCl (Cephalexin 500 Mg Capsule) 500 mg PO BID [facility] Stop: 04/13/24 21:01 Last Admin: 04/12/24 08:45 Dose: 500 mg Gabapentin (Gabapentin 400 Mg Capsule) 800 mg PO QID [facility] Last Admin: 04/12/24 12:55 Dose: 800 mg Magnesium Hydroxide (Milk Of Magnesia 30 Ml Oral.Susp) 30 ml PO DAILY PRN PRN Reason: Constipation Nicotine Polacrilex (Nicotine Polacrilex 2 Mg Gum) 4 mg BUCCAL Q2H PRN PRN Reason: Nicotine Cravings Omeprazole (Omeprazole 20 Mg Capsule.Dr) 20 mg PO BID [facility] Last Admin: 04/12/24 08:45 Dose: 20 mg Quetiapine Fumarate (Quetiapine Fumarate 25 Mg Tablet) 12.5 mg PO Q4H PRN PRN Reason: anxiety Quetiapine Fumarate (Quetiapine Fumarate 50 Mg Tablet) 50 mg PO BEDTIME [facility] Topiramate (Topiramate 100 Mg Tablet) 200 mg PO BEDTIME [facility] Last Admin: 04/11/24 20:21 Dose: 200 mg Trazodone HCl (Trazodone Hcl 50 Mg Tablet) 50 mg PO BEDTIME MRX1 PRN PRN Reason: Insomnia Last Admin: 04/11/24 20:21 Dose: 50 mg Valacyclovir HCl (Valacyclovir Hcl 1,000 Mg Tablet) 1,000 mg PO DAILY [facility] Last Admin: 04/12/24 08:44 Dose: 1,000 mg Allergies Allergies Allergy/AdvReac Type Severity Reaction Status Date / Time acetaminophen [From Vicodin] Allergy Unknown Verified 04/10/24 02:04 amoxicillin Allergy Unknown Verified 04/10/24 02:04 calcium carbonate Allergy Unknown Verified 04/10/24 02:04 [From Florical] hydrocodone [From Vicodin] Allergy Unknown Verified 04/10/24 02:04 sodium fluoride Allergy Unknown Verified 04/10/24 02:04 [From Florical] sulfamethoxazole Allergy Unknown Verified 04/10/24 02:04 [From Bactrim] trimethoprim [From Bactrim] Allergy Unknown Verified 04/10/24 02:04 Assessment & Plan Assessment & Plan (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 - Franklin'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 add seroquel 25 mg QHS for psychosis in manuel's chorea. UTI - missed doses of cefpodoxime. requires new course of antibx? 04/11: Laying in bed most of shift. Keeping to self. Guarded. Soft spoken. Patient reports feeling the same as yesterday . She reports auditory hallucinations that are quieting down ; patient did not go into detail as to what auditory hallucinations are saying. Patient denies SI/HI/VH. Per nursing, patient slept 8 hours last night. Continue current treatment plan. 04/12: increase HS seroquel to 50 mg for AH. DC hydroxyzine and start seroquel 12.5 PRN anxiety. neuro consult appreciated. Reason for continued inpatient stay Substantial Risk for: harm to self, inability to function and rapid decompensation Time Spent With Patient Time: Total time managing care of this patient today __25__ minutes.
[2024-04-12 20:00] VITALS: BP 109/68; PULSE 90; RESP 18; TEMP 36.9; O2SAT 100
[2024-04-12] MEDS: Topiramate 100 MG TABLET 200 MG PO (20:56)
[2024-04-12] MEDS: QUEtiapine Fumarate 50 MG TABLET PO (20:56)
[2024-04-13 07:43] VITALS: BP 109/71; PULSE 65; RESP 14; TEMP 37; O2SAT 93
--- NOTE | 2024-04-13 09:05 | HO.PSYCHPN ---
Subjective Subjective Date of Service: 04/13/24 Reason For Visit: Adjustment disorder with mixed anxiety and depress Interim History: Reports symptoms improving. Depression, anxiety and AH decreasing. reports AH continue but are improved. Mostly withdrawn. No groups. slept well. No active SI. Review of Systems Review of Systems No recent cold or flu-like illness. Yes all other systems are reviewed and are negative Mental Status Exam Mental Status Exam Narrative: dressed in personal clothes. disheveled. left facial droop. cooperative. no PMA/PMR. no abnormal movements noted. speech somewhat dysarthric from facial droop, it appears. normal rate, amount. decr loudness and flattened tone. nml latency. thoughts linear and logical, no delusions expressed. affect more flexible, hypo-intense, non-labile. mood happy. no SI/SIBI/HI expressed. endorses AVH, attenuated from admission. Patient Appearance: Disheveled Patient Orientation: Person, Place and Situation Level of Consciousness: Awake and Alert Patient Behavior: Guarded Mood Description: Calm and Anxious Affect Description: Flat Ability to Follow Directions: Good Speech Pattern: Soft-Spoken Diagnostics Vital Signs (24Hr): Vital Signs - 24 hr 04/12/24 20:00 04/13/24 07:43 Temperature 98.5 F 98.6 F Pulse Rate 90 65 Respiratory Rate 18 14 Blood Pressure 109/68 109/71 Pulse Oximetry 100 93 Oxygen Delivery Method Room Air Room Air BMI result Body Mass Index 25.4 Labs 04/11/24 09:25 Labs: Laboratory Results - last 48 hr 04/11/24 09:25 Sodium 141 Potassium 3.0 L Chloride 106 Carbon Dioxide 21 L Anion Gap 17 BUN 6 L Creatinine 0.64 Estim Creat Clear Calc 107.2 Estimated GFR > 60 Fasting Glucose 79 Calcium 9.5 Total Bilirubin 0.7 AST 15 ALT 17 Alkaline Phosphatase 50 Total Protein 7.1 Albumin 4.3 Triglycerides 114 Cholesterol 171 LDL Cholesterol, Calc 112 H HDL Cholesterol 37 L Medications Medications Current Medications Acetaminophen (Acetaminophen 325 Mg Tablet) 650 mg PO Q6H PRN PRN Reason: Headache/Pain Mild Scale (1-3) Last Admin: 04/10/24 09:01 Dose: 650 mg Al Hydroxide/Mg Hydroxide (Magnesium Hydrox/Alum Hydrox 30 Ml Oral.Susp) 30 ml PO Q6H PRN PRN Reason: Heartburn/Nausea Apixaban (Apixaban 5 Mg Tablet) 5 mg PO BID [facility] Last Admin: 04/12/24 20:57 Dose: 5 mg Aspirin (Aspirin Enteric Coated 81 Mg Tablet.) 81 mg PO DAILY [facility] Last Admin: 04/12/24 08:45 Dose: 81 mg Cephalexin HCl (Cephalexin 500 Mg Capsule) 500 mg PO BID [facility] Stop: 04/13/24 21:01 Last Admin: 04/12/24 20:56 Dose: 500 mg Gabapentin (Gabapentin 400 Mg Capsule) 800 mg PO QID [facility] Last Admin: 04/12/24 20:56 Dose: 800 mg Magnesium Hydroxide (Milk Of Magnesia 30 Ml Oral.Susp) 30 ml PO DAILY PRN PRN Reason: Constipation Nicotine Polacrilex (Nicotine Polacrilex 2 Mg Gum) 4 mg BUCCAL Q2H PRN PRN Reason: Nicotine Cravings Omeprazole (Omeprazole 20 Mg Capsule.) 20 mg PO BID [facility] Last Admin: 04/12/24 20:57 Dose: 20 mg Quetiapine Fumarate (Quetiapine Fumarate 25 Mg Tablet) 12.5 mg PO Q4H PRN PRN Reason: anxiety Quetiapine Fumarate (Quetiapine Fumarate 50 Mg Tablet) 50 mg PO BEDTIME [facility] Last Admin: 04/12/24 20:56 Dose: 50 mg Topiramate (Topiramate 100 Mg Tablet) 200 mg PO BEDTIME [facility] Last Admin: 04/12/24 20:56 Dose: 200 mg Trazodone HCl (Trazodone Hcl 50 Mg Tablet) 50 mg PO BEDTIME MRX1 PRN PRN Reason: Insomnia Last Admin: 04/11/24 20:21 Dose: 50 mg Valacyclovir HCl (Valacyclovir Hcl 1,000 Mg Tablet) 1,000 mg PO DAILY [facility] Last Admin: 04/12/24 08:44 Dose: 1,000 mg Allergies Allergies Allergy/AdvReac Type Severity Reaction Status Date / Time acetaminophen [From Vicodin] Allergy Unknown Verified 04/10/24 02:04 amoxicillin Allergy Unknown Verified 04/10/24 02:04 calcium carbonate Allergy Unknown Verified 04/10/24 02:04 [From Florical] hydrocodone [From Vicodin] Allergy Unknown Verified 04/10/24 02:04 sodium fluoride Allergy Unknown Verified 04/10/24 02:04 [From Florical] sulfamethoxazole Allergy Unknown Verified 04/10/24 02:04 [From Bactrim] trimethoprim [From Bactrim] Allergy Unknown Verified 04/10/24 02:04 Assessment & Plan Assessment & Plan (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 - [place]'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 add seroquel 25 mg QHS for psychosis in manuel's chorea. UTI - missed doses of cefpodoxime. requires new course of antibx? 04/11: Laying in bed most of shift. Keeping to self. Guarded. Soft spoken. Patient reports feeling the same as yesterday . She reports auditory hallucinations that are quieting down ; patient did not go into detail as to what auditory hallucinations are saying. Patient denies SI/HI/VH. Per nursing, patient slept 8 hours last night. Continue current treatment plan. 04/12: increase HS seroquel to 50 mg for AH. DC hydroxyzine and start seroquel 12.5 PRN anxiety. neuro consult appreciated. 04/13: continue current management and treatment plan. Reason for continued inpatient stay Substantial Risk for: inability to function, rapid decompensation and med/psych decompensation Time Spent With Patient Time: Total time managing care of this patient today ____ minutes.
[2024-04-13] MEDS: Apixaban 5 MG TABLET PO ×2 (09:08→21:23)
[2024-04-13] MEDS: cephALEXin 500 MG CAPSULE PO ×2 (09:08→21:22)
[2024-04-13] MEDS: Aspirin Enteric Coated 81 MG TABLET.DR PO (09:08)
[2024-04-13] MEDS: Gabapentin 400 MG CAPSULE 800 MG PO ×4 (09:08→21:23)
[2024-04-13] MEDS: Omeprazole 20 MG CAPSULE.DR PO ×2 (09:08→21:23)
[2024-04-13] MEDS: valACYclovir HCL 1,000 MG TABLET 1000 MG PO (09:08)
[2024-04-13 19:35] VITALS: BP 112/57; PULSE 78; RESP 14; TEMP 36.6; O2SAT 99
[2024-04-13] MEDS: QUEtiapine Fumarate 50 MG TABLET PO (21:23)
[2024-04-13] MEDS: Topiramate 100 MG TABLET 200 MG PO (21:23)
[2024-04-14 07:54] VITALS: BP 101/65; PULSE 71; RESP 14; TEMP 36.5; O2SAT 100
[2024-04-14] MEDS: Apixaban 5 MG TABLET PO ×2 (09:11→21:10)
[2024-04-14] MEDS: Aspirin Enteric Coated 81 MG TABLET.DR PO (09:11)
[2024-04-14] MEDS: valACYclovir HCL 1,000 MG TABLET 1000 MG PO (09:11)
[2024-04-14] MEDS: Omeprazole 20 MG CAPSULE.DR PO ×2 (09:11→21:10)
[2024-04-14] MEDS: Gabapentin 400 MG CAPSULE 800 MG PO ×4 (09:11→21:09)
--- NOTE | 2024-04-14 11:37 | HO.PSYCHPN ---
Subjective Subjective Date of Service: 04/14/24 Reason For Visit: Adjustment disorder with mixed anxiety and depress Interim History: Reports symptoms continue to improve. She is isolated in her room and doesn't engage in groups. Says because she is sick with HD. Anxiety and AH decreasing. Reports AH continue but are improved and quieter . Slept well. No active SI. Review of Systems Review of Systems No recent cold or flu-like illness. Yes all other systems are reviewed and are negative Mental Status Exam Mental Status Exam Narrative: dressed in personal clothes. disheveled. left facial droop. cooperative. no PMA/PMR. no abnormal movements noted. speech somewhat dysarthric from facial droop, it appears. normal rate, amount. decr loudness and flattened tone. nml latency. thoughts linear and logical, no delusions expressed. affect more flexible, hypo-intense, non-labile. mood happy. no SI/SIBI/HI expressed. endorses AVH, attenuated from admission. Patient Appearance: Disheveled Patient Orientation: Person, Place and Situation Level of Consciousness: Awake and Alert Patient Behavior: Guarded Mood Description: Calm and Anxious Affect Description: Flat Ability to Follow Directions: Good Speech Pattern: Soft-Spoken Diagnostics Vital Signs (24Hr): Vital Signs - 24 hr 04/13/24 19:35 04/14/24 07:54 Temperature 97.9 F 97.7 F Pulse Rate 78 71 Respiratory Rate 14 14 Blood Pressure 112/57 L 101/65 Pulse Oximetry 99 100 Oxygen Delivery Method Room Air Room Air BMI result Body Mass Index 25.4 Labs 04/11/24 09:25 Medications Medications Current Medications Acetaminophen (Acetaminophen 325 Mg Tablet) 650 mg PO Q6H PRN PRN Reason: Headache/Pain Mild Scale (1-3) Last Admin: 04/10/24 09:01 Dose: 650 mg Al Hydroxide/Mg Hydroxide (Magnesium Hydrox/Alum Hydrox 30 Ml Oral.Susp) 30 ml PO Q6H PRN PRN Reason: Heartburn/Nausea Apixaban (Apixaban 5 Mg Tablet) 5 mg PO BID [facility] Last Admin: 04/14/24 09:11 Dose: 5 mg Aspirin (Aspirin Enteric Coated 81 Mg Tablet.) 81 mg PO DAILY [facility] Last Admin: 04/14/24 09:11 Dose: 81 mg Gabapentin (Gabapentin 400 Mg Capsule) 800 mg PO QID [facility] Last Admin: 04/14/24 09:11 Dose: 800 mg Magnesium Hydroxide (Milk Of Magnesia 30 Ml Oral.Susp) 30 ml PO DAILY PRN PRN Reason: Constipation Nicotine Polacrilex (Nicotine Polacrilex 2 Mg Gum) 4 mg BUCCAL Q2H PRN PRN Reason: Nicotine Cravings Omeprazole (Omeprazole 20 Mg Capsule.Dr) 20 mg PO BID [facility] Last Admin: 04/14/24 09:11 Dose: 20 mg Quetiapine Fumarate (Quetiapine Fumarate 25 Mg Tablet) 12.5 mg PO Q4H PRN PRN Reason: anxiety Quetiapine Fumarate (Quetiapine Fumarate 50 Mg Tablet) 50 mg PO BEDTIME [facility] Last Admin: 04/13/24 21:23 Dose: 50 mg Topiramate (Topiramate 100 Mg Tablet) 200 mg PO BEDTIME [facility] Last Admin: 04/13/24 21:23 Dose: 200 mg Trazodone HCl (Trazodone Hcl 50 Mg Tablet) 50 mg PO BEDTIME MRX1 PRN PRN Reason: Insomnia Last Admin: 04/11/24 20:21 Dose: 50 mg Valacyclovir HCl (Valacyclovir Hcl 1,000 Mg Tablet) 1,000 mg PO DAILY [facility] Last Admin: 04/14/24 09:11 Dose: 1,000 mg Allergies Allergies Allergy/AdvReac Type Severity Reaction Status Date / Time acetaminophen [From Vicodin] Allergy Unknown Verified 04/10/24 02:04 amoxicillin Allergy Unknown Verified 04/10/24 02:04 calcium carbonate Allergy Unknown Verified 04/10/24 02:04 [From Florical] hydrocodone [From Vicodin] Allergy Unknown Verified 04/10/24 02:04 sodium fluoride Allergy Unknown Verified 04/10/24 02:04 [From Florical] sulfamethoxazole Allergy Unknown Verified 04/10/24 02:04 [From Bactrim] trimethoprim [From Bactrim] Allergy Unknown Verified 04/10/24 02:04 Assessment & Plan Assessment & Plan (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 add seroquel 25 mg QHS for psychosis in manuel's chorea. UTI - missed doses of cefpodoxime. requires new course of antibx? 04/11: Laying in bed most of shift. Keeping to self. Guarded. Soft spoken. Patient reports feeling the same as yesterday . She reports auditory hallucinations that are quieting down ; patient did not go into detail as to what auditory hallucinations are saying. Patient denies SI/HI/VH. Per nursing, patient slept 8 hours last night. Continue current treatment plan. 04/12: increase HS seroquel to 50 mg for AH. DC hydroxyzine and start seroquel 12.5 PRN anxiety. neuro consult appreciated. 04/13: continue current management and treatment plan. 04/14: Continue current management and treatment plan. Reason for continued inpatient stay Substantial Risk for: harm to self, inability to function, rapid decompensation and med/psych decompensation Time Spent With Patient Time: Total time managing care of this patient today ____ minutes.
[2024-04-14 20:00] VITALS: BP 103/60; PULSE 69; RESP 16; TEMP 36.8; O2SAT 98
[2024-04-14] MEDS: QUEtiapine Fumarate 50 MG TABLET PO (21:09)
[2024-04-14] MEDS: Topiramate 100 MG TABLET 200 MG PO (21:09)
[2024-04-15 08:00] VITALS: BP 119/70; PULSE 64; RESP 14; TEMP 37.1; O2SAT 100
[2024-04-15] MEDS: Gabapentin 400 MG CAPSULE 800 MG PO ×4 (09:03→20:44)
[2024-04-15] MEDS: Omeprazole 20 MG CAPSULE.DR PO ×2 (09:04→20:44)
[2024-04-15] MEDS: Aspirin Enteric Coated 81 MG TABLET.DR PO (09:04)
[2024-04-15] MEDS: valACYclovir HCL 1,000 MG TABLET 1000 MG PO (09:04)
[2024-04-15] MEDS: Apixaban 5 MG TABLET PO ×2 (09:05→20:44)
--- NOTE | 2024-04-15 11:17 | P.PNPSI_ITS ---
Subjective Subjective Date of Service: 04/15/24 Reason For Visit: Adjustment disorder with mixed anxiety and depress Interim History: Reports symptoms continue to improve but AH still present. Agrees to titration of Seroquel. She is isolated in her room and doesn't engage in groups because of her HD she says. Anxiety decreasing. Slept well. No active SI. Review of Systems Review of Systems No recent cold or flu-like illness. Yes all other systems are reviewed and are negative Mental Status Exam Mental Status Exam Narrative: dressed in personal clothes. disheveled. left facial droop. cooperative. no PMA/PMR. no abnormal movements noted. speech somewhat dysarthric from facial droop, it appears. normal rate, amount. decr loudness and flattened tone. nml latency. thoughts linear and logical, no delusions expressed. affect more flexible, hypo-intense, non-labile. mood happy. no SI/SIBI/HI expressed. endorses AVH, attenuated from admission. Patient Appearance: Disheveled Patient Orientation: Person, Place and Situation Level of Consciousness: Awake and Alert Patient Behavior: Guarded Mood Description: Calm and Anxious Affect Description: Flat Ability to Follow Directions: Good Speech Pattern: Soft-Spoken Diagnostics Vital Signs (24Hr): Vital Signs - 24 hr 04/14/24 20:00 04/15/24 08:00 Temperature 98.3 F 98.7 F Pulse Rate 69 64 Respiratory Rate 16 14 Blood Pressure 103/60 119/70 Pulse Oximetry 98 100 Oxygen Delivery Method Room Air Room Air BMI result Body Mass Index 25.4 Labs 04/11/24 09:25 Medications Medications Current Medications Acetaminophen (Acetaminophen 325 Mg Tablet) 650 mg PO Q6H PRN PRN Reason: Headache/Pain Mild Scale (1-3) Last Admin: 04/10/24 09:01 Dose: 650 mg Al Hydroxide/Mg Hydroxide (Magnesium Hydrox/Alum Hydrox 30 Ml Oral.Susp) 30 ml PO Q6H PRN PRN Reason: Heartburn/Nausea Apixaban (Apixaban 5 Mg Tablet) 5 mg PO BID [facility] Last Admin: 04/15/24 09:05 Dose: 5 mg Aspirin (Aspirin Enteric Coated 81 Mg Tablet.) 81 mg PO DAILY [facility] Last Admin: 04/15/24 09:04 Dose: 81 mg Gabapentin (Gabapentin 400 Mg Capsule) 800 mg PO QID [facility] Last Admin: 04/15/24 09:03 Dose: 800 mg Magnesium Hydroxide (Milk Of Magnesia 30 Ml Oral.Susp) 30 ml PO DAILY PRN PRN Reason: Constipation Nicotine Polacrilex (Nicotine Polacrilex 2 Mg Gum) 4 mg BUCCAL Q2H PRN PRN Reason: Nicotine Cravings Omeprazole (Omeprazole 20 Mg Capsule.Dr) 20 mg PO BID [facility] Last Admin: 04/15/24 09:04 Dose: 20 mg Quetiapine Fumarate (Quetiapine Fumarate 25 Mg Tablet) 12.5 mg PO Q4H PRN PRN Reason: anxiety Quetiapine Fumarate (Quetiapine Fumarate 50 Mg Tablet) 50 mg PO BEDTIME [facility] Last Admin: 04/14/24 21:09 Dose: 50 mg Topiramate (Topiramate 100 Mg Tablet) 200 mg PO BEDTIME [facility] Last Admin: 04/14/24 21:09 Dose: 200 mg Trazodone HCl (Trazodone Hcl 50 Mg Tablet) 50 mg PO BEDTIME MRX1 PRN PRN Reason: Insomnia Last Admin: 04/11/24 20:21 Dose: 50 mg Valacyclovir HCl (Valacyclovir Hcl 1,000 Mg Tablet) 1,000 mg PO DAILY [facility] Last Admin: 04/15/24 09:04 Dose: 1,000 mg Allergies Allergies Allergy/AdvReac Type Severity Reaction Status Date / Time acetaminophen [From Vicodin] Allergy Unknown Verified 04/10/24 02:04 amoxicillin Allergy Unknown Verified 04/10/24 02:04 calcium carbonate Allergy Unknown Verified 04/10/24 02:04 [From Florical] hydrocodone [From Vicodin] Allergy Unknown Verified 04/10/24 02:04 sodium fluoride Allergy Unknown Verified 04/10/24 02:04 [From Florical] sulfamethoxazole Allergy Unknown Verified 04/10/24 02:04 [From Bactrim] trimethoprim [From Bactrim] Allergy Unknown Verified 04/10/24 02:04 Assessment & Plan Assessment & Plan (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 add seroquel 25 mg QHS for psychosis in manuel's chorea. UTI - missed doses of cefpodoxime. requires new course of antibx? 04/11: Laying in bed most of shift. Keeping to self. Guarded. Soft spoken. Patient reports feeling the same as yesterday . She reports auditory hallucinations that are quieting down ; patient did not go into detail as to what auditory hallucinations are saying. Patient denies SI/HI/VH. Per nursing, patient slept 8 hours last night. Continue current treatment plan. 04/12: increase HS seroquel to 50 mg for AH. DC hydroxyzine and start seroquel 12.5 PRN anxiety. neuro consult appreciated. 04/13: continue current management and treatment plan. 04/14: Continue current management and treatment plan. 04/15: Increase Seroquel to 75 mg HS. Continue current management and treatment plan. Encourage groups and milieu. Reason for continued inpatient stay Substantial Risk for: inability to function, rapid decompensation and med/psych decompensation Time Spent With Patient Time: Total time managing care of this patient today ____ minutes.
[2024-04-15 20:00] VITALS: BP 121/66; PULSE 74; RESP 16; TEMP 37.2; O2SAT 96
[2024-04-15] MEDS: Topiramate 100 MG TABLET 200 MG PO (20:43)
[2024-04-15] MEDS: QUEtiapine Fumarate 25 MG TABLET 75 MG PO (20:44)
[2024-04-16 08:00] VITALS: BP 107/59; PULSE 67; RESP 14; TEMP 36.6; O2SAT 98
[2024-04-16] MEDS: Omeprazole 20 MG CAPSULE.DR PO ×2 (08:34→20:49)
[2024-04-16] MEDS: Apixaban 5 MG TABLET PO ×2 (08:34→20:50)
[2024-04-16] MEDS: valACYclovir HCL 1,000 MG TABLET 1000 MG PO (08:35)
[2024-04-16] MEDS: Gabapentin 400 MG CAPSULE 800 MG PO ×4 (08:35→20:48)
[2024-04-16] MEDS: Aspirin Enteric Coated 81 MG TABLET.DR PO (08:35)
[2024-04-16 20:30] VITALS: BP 123/80; PULSE 85; RESP 17; TEMP 36.9; O2SAT 99
[2024-04-16] MEDS: QUEtiapine Fumarate 25 MG TABLET 75 MG PO (20:49)
[2024-04-16] MEDS: Topiramate 100 MG TABLET 200 MG PO (20:50)
--- NOTE | 2024-04-16 21:53 | HO.PSYCHPN ---
Subjective Subjective Date of Service: 04/16/24 Reason For Visit: Adjustment disorder with mixed anxiety and depress Interim History: feels she can D/C soon, that she can care for herself. AH remain improved but not stopped. per staff, some dep/anx. taking meds. not attending groups. c/o AH eves. in bed, isolative. slept 8 hours. AH improving. Mental Status Exam Mental Status Exam Narrative: dressed in personal clothes. disheveled. left facial droop. cooperative. no PMA/PMR. no abnormal movements noted. speech somewhat dysarthric from facial droop, it appears. normal rate, amount. decr loudness and flattened tone. nml latency. thoughts linear and logical, no delusions expressed. affect more flexible, hypo-intense, non-labile. mood not assessed. no SI/SIBI/HI expressed. endorses AVH, attenuated from admission. Diagnostics Vital Signs (24Hr): Vital Signs - 24 hr 04/16/24 08:00 04/16/24 20:30 Temperature 98 F 98.4 F Pulse Rate 67 85 Respiratory Rate 14 17 Blood Pressure 107/59 L 123/80 Pulse Oximetry 98 99 Oxygen Delivery Method Room Air Room Air BMI result Body Mass Index 25.4 Labs 04/11/24 09:25 Medications Medications Current Medications Acetaminophen (Acetaminophen 325 Mg Tablet) 650 mg PO Q6H PRN PRN Reason: Headache/Pain Mild Scale (1-3) Last Admin: 04/10/24 09:01 Dose: 650 mg Al Hydroxide/Mg Hydroxide (Magnesium Hydrox/Alum Hydrox 30 Ml Oral.Susp) 30 ml PO Q6H PRN PRN Reason: Heartburn/Nausea Apixaban (Apixaban 5 Mg Tablet) 5 mg PO BID [facility] Last Admin: 04/16/24 20:50 Dose: 5 mg Aspirin (Aspirin Enteric Coated 81 Mg Tablet.Dr) 81 mg PO DAILY [facility] Last Admin: 04/16/24 08:35 Dose: 81 mg Gabapentin (Gabapentin 400 Mg Capsule) 800 mg PO QID [facility] Last Admin: 04/16/24 20:48 Dose: 800 mg Magnesium Hydroxide (Milk Of Magnesia 30 Ml Oral.Susp) 30 ml PO DAILY PRN PRN Reason: Constipation Nicotine Polacrilex (Nicotine Polacrilex 2 Mg Gum) 4 mg BUCCAL Q2H PRN PRN Reason: Nicotine Cravings Omeprazole (Omeprazole 20 Mg Capsule.Dr) 20 mg PO BID [facility] Last Admin: 04/16/24 20:49 Dose: 20 mg Quetiapine Fumarate (Quetiapine Fumarate 25 Mg Tablet) 12.5 mg PO Q4H PRN PRN Reason: anxiety Quetiapine Fumarate (Quetiapine Fumarate 25 Mg Tablet) 75 mg PO BEDTIME [facility] Last Admin: 04/16/24 20:49 Dose: 75 mg Topiramate (Topiramate 100 Mg Tablet) 200 mg PO BEDTIME [facility] Last Admin: 04/16/24 20:50 Dose: 200 mg Trazodone HCl (Trazodone Hcl 50 Mg Tablet) 50 mg PO BEDTIME MRX1 PRN PRN Reason: Insomnia Last Admin: 04/11/24 20:21 Dose: 50 mg Valacyclovir HCl (Valacyclovir Hcl 1,000 Mg Tablet) 1,000 mg PO DAILY [facility] Last Admin: 04/16/24 08:35 Dose: 1,000 mg Allergies Allergies Allergy/AdvReac Type Severity Reaction Status Date / Time acetaminophen [From Vicodin] Allergy Unknown Verified 04/10/24 02:04 amoxicillin Allergy Unknown Verified 04/10/24 02:04 calcium carbonate Allergy Unknown Verified 04/10/24 02:04 [From Florical] hydrocodone [From Vicodin] Allergy Unknown Verified 04/10/24 02:04 sodium fluoride Allergy Unknown Verified 04/10/24 02:04 [From Florical] sulfamethoxazole Allergy Unknown Verified 04/10/24 02:04 [From Bactrim] trimethoprim [From Bactrim] Allergy Unknown Verified 04/10/24 02:04 Assessment & Plan Assessment & Plan (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 add seroquel 25 mg QHS for psychosis in manuel's chorea. UTI - missed doses of cefpodoxime. requires new course of antibx? 04/11: Laying in bed most of shift. Keeping to self. Guarded. Soft spoken. Patient reports feeling the same as yesterday . She reports auditory hallucinations that are quieting down ; patient did not go into detail as to what auditory hallucinations are saying. Patient denies SI/HI/VH. Per nursing, patient slept 8 hours last night. Continue current treatment plan. 04/12: increase HS seroquel to 50 mg for AH. DC hydroxyzine and start seroquel 12.5 PRN anxiety. neuro consult appreciated. 04/13: continue current management and treatment plan. 04/14: Continue current management and treatment plan. 04/15: Increase Seroquel to 75 mg HS. Continue current management and treatment plan. Encourage groups and milieu. 04/16: feeling ready for discharge. does not seem to be aware she is her on CV. begin D/C planning. AH continue, but attenuated. Reason for continued inpatient stay Substantial Risk for: inability to function and rapid decompensation Time Spent With Patient Time: Total time managing care of this patient today __25__ minutes.
[2024-04-17 08:00] VITALS: BP 109/68; PULSE 71; RESP 18; TEMP 36.7; O2SAT 100
[2024-04-17] MEDS: Gabapentin 400 MG CAPSULE 800 MG PO ×4 (08:34→21:13)
[2024-04-17] MEDS: Omeprazole 20 MG CAPSULE.DR PO ×2 (08:34→21:12)
[2024-04-17] MEDS: valACYclovir HCL 1,000 MG TABLET 1000 MG PO (08:34)
[2024-04-17] MEDS: Apixaban 5 MG TABLET PO ×2 (08:35→21:13)
[2024-04-17] MEDS: QUEtiapine Fumarate 25 MG TABLET 12.5 MG PO (09:23)
--- NOTE | 2024-04-17 16:27 | P.PNPSI_ITS ---
Subjective Subjective Date of Service: 04/17/24 Reason For Visit: Adjustment disorder with mixed anxiety and depress Interim History: feeling ready to go home: feeling as good as i'm going to be. believes she is at a rehab, despite having been told repeatedly that she is on a psych unit. asking for increase in PRN seroquel dosing from 12.5 each to 25 each. per staff, no groups, malodorous. poor self care. poor PO intake. Mental Status Exam Mental Status Exam Narrative: dressed in personal clothes. disheveled. left facial droop. cooperative. no PMA/PMR. no abnormal movements noted. speech somewhat dysarthric from facial droop, it appears. normal rate, amount. decr loudness and flattened tone. nml latency. thoughts linear and logical, no delusions expressed. affect more flexible, hypo-intense, non-labile. mood not assessed. no SI/SIBI/HI expressed. endorses AVH, attenuated from admission. Diagnostics Vital Signs (24Hr): Vital Signs - 24 hr 04/16/24 20:30 04/17/24 08:00 Temperature 98.4 F 98.1 F Pulse Rate 85 71 Respiratory Rate 17 18 Blood Pressure 123/80 109/68 Pulse Oximetry 99 100 Oxygen Delivery Method Room Air Room Air BMI result Body Mass Index 25.4 Labs 04/11/24 09:25 Medications Medications Current Medications Acetaminophen (Acetaminophen 325 Mg Tablet) 650 mg PO Q6H PRN PRN Reason: Headache/Pain Mild Scale (1-3) Last Admin: 04/10/24 09:01 Dose: 650 mg Al Hydroxide/Mg Hydroxide (Magnesium Hydrox/Alum Hydrox 30 Ml Oral.Susp) 30 ml PO Q6H PRN PRN Reason: Heartburn/Nausea Apixaban (Apixaban 5 Mg Tablet) 5 mg PO BID [facility] Last Admin: 04/17/24 08:35 Dose: 5 mg Aspirin (Aspirin Enteric Coated 81 Mg Tablet.Dr) 81 mg PO DAILY [facility] Last Admin: 04/17/24 08:36 Dose: Not Given Gabapentin (Gabapentin 400 Mg Capsule) 800 mg PO QID [facility] Last Admin: 04/17/24 13:47 Dose: 800 mg Magnesium Hydroxide (Milk Of Magnesia 30 Ml Oral.Susp) 30 ml PO DAILY PRN PRN Reason: Constipation Nicotine Polacrilex (Nicotine Polacrilex 2 Mg Gum) 4 mg BUCCAL Q2H PRN PRN Reason: Nicotine Cravings Omeprazole (Omeprazole 20 Mg Capsule.Dr) 20 mg PO BID [facility] Last Admin: 04/17/24 08:34 Dose: 20 mg Quetiapine Fumarate (Quetiapine Fumarate 25 Mg Tablet) 12.5 mg PO Q4H PRN PRN Reason: anxiety Last Admin: 04/17/24 09:23 Dose: 12.5 mg Quetiapine Fumarate (Quetiapine Fumarate 25 Mg Tablet) 75 mg PO BEDTIME [facility] Last Admin: 04/16/24 20:49 Dose: 75 mg Topiramate (Topiramate 100 Mg Tablet) 200 mg PO BEDTIME [facility] Last Admin: 04/16/24 20:50 Dose: 200 mg Trazodone HCl (Trazodone Hcl 50 Mg Tablet) 50 mg PO BEDTIME MRX1 PRN PRN Reason: Insomnia Last Admin: 04/11/24 20:21 Dose: 50 mg Valacyclovir HCl (Valacyclovir Hcl 1,000 Mg Tablet) 1,000 mg PO DAILY [facility] Last Admin: 04/17/24 08:34 Dose: 1,000 mg Allergies Allergies Allergy/AdvReac Type Severity Reaction Status Date / Time acetaminophen [From Vicodin] Allergy Unknown Verified 04/10/24 02:04 amoxicillin Allergy Unknown Verified 04/10/24 02:04 calcium carbonate Allergy Unknown Verified 04/10/24 02:04 [From Florical] hydrocodone [From Vicodin] Allergy Unknown Verified 04/10/24 02:04 sodium fluoride Allergy Unknown Verified 04/10/24 02:04 [From Florical] sulfamethoxazole Allergy Unknown Verified 04/10/24 02:04 [From Bactrim] trimethoprim [From Bactrim] Allergy Unknown Verified 04/10/24 02:04 Assessment & Plan Assessment & Plan (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 - [place]'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 add seroquel 25 mg QHS for psychosis in manuel's chorea. UTI - missed doses of cefpodoxime. requires new course of antibx? 04/11: Laying in bed most of shift. Keeping to self. Guarded. Soft spoken. Patient reports feeling the same as yesterday . She reports auditory hallucinations that are quieting down ; patient did not go into detail as to what auditory hallucinations are saying. Patient denies SI/HI/VH. Per nursing, patient slept 8 hours last night. Continue current treatment plan. 04/12: increase HS seroquel to 50 mg for AH. DC hydroxyzine and start seroquel 12.5 PRN anxiety. neuro consult appreciated. 04/13: continue current management and treatment plan. 04/14: Continue current management and treatment plan. 04/15: Increase Seroquel to 75 mg HS. Continue current management and treatment plan. Encourage groups and milieu. 04/16: feeling ready for discharge. does not seem to be aware she is her on CV. begin D/C planning. AH continue, but attenuated. 04/17: poor ADLs. collect collateral from [employer] re baseline fxn. increase anxiety PRNs from seroquel 12.5 mg each to seroquel 25 mg each. Reason for continued inpatient stay Substantial Risk for: harm to self, inability to function and rapid decompensation Time Spent With Patient Time: Total time managing care of this patient today __25__ minutes.
[2024-04-17] MEDS: Topiramate 100 MG TABLET 200 MG PO (21:12)
[2024-04-17] MEDS: QUEtiapine Fumarate 25 MG TABLET 75 MG PO (21:13)
[2024-04-17 21:17] VITALS: BP 103/67; PULSE 83; RESP 17; TEMP 36.4; O2SAT 100
[2024-04-18 07:00] VITALS: BMI 24.8
[2024-04-18 07:36] VITALS: BP 101/61; PULSE 70; RESP 16; TEMP 36.7; O2SAT 100
[2024-04-18] MEDS: Gabapentin 400 MG CAPSULE 800 MG PO ×4 (08:48→20:24)
[2024-04-18] MEDS: valACYclovir HCL 1,000 MG TABLET 1000 MG PO (08:49)
[2024-04-18] MEDS: Omeprazole 20 MG CAPSULE.DR PO ×2 (08:49→20:24)
[2024-04-18] MEDS: Apixaban 5 MG TABLET PO ×2 (08:49→20:24)
[2024-04-18] MEDS: QUEtiapine Fumarate 25 MG TABLET PO (08:53)
--- NOTE | 2024-04-18 16:12 | P.PNPSI_ITS ---
Subjective Subjective Date of Service: 04/18/24 Reason For Visit: Adjustment disorder with mixed anxiety and depress Interim History: sitting up eating lunch. calm, cooperative. seroquel 25 PRNs more helpful. denies AH. per staff, taking meds. happy with increase in seroquel dosing. some walking outside of bedroom last night. Mental Status Exam Mental Status Exam Narrative: dressed in personal clothes. disheveled. left facial droop. cooperative. no PMA/PMR. no abnormal movements noted. speech somewhat dysarthric from facial droop, it appears. normal rate, amount. decr loudness and flattened tone. nml latency. thoughts linear and logical, no delusions expressed. affect more flexible, hypo-intense, non-labile. mood not assessed. no SI/SIBI/HI expressed. denies AH. Diagnostics Vital Signs (24Hr): Vital Signs - 24 hr 04/17/24 21:17 04/18/24 07:36 Temperature 97.6 F 98.1 F Pulse Rate 83 70 Respiratory Rate 17 16 Blood Pressure 103/67 101/61 Pulse Oximetry 100 100 Oxygen Delivery Method Room Air Room Air BMI result Body Mass Index 24.8 Labs 04/11/24 09:25 Medications Medications Current Medications Acetaminophen (Acetaminophen 325 Mg Tablet) 650 mg PO Q6H PRN PRN Reason: Headache/Pain Mild Scale (1-3) Last Admin: 04/10/24 09:01 Dose: 650 mg Al Hydroxide/Mg Hydroxide (Magnesium Hydrox/Alum Hydrox 30 Ml Oral.Susp) 30 ml PO Q6H PRN PRN Reason: Heartburn/Nausea Apixaban (Apixaban 5 Mg Tablet) 5 mg PO BID [facility] Last Admin: 04/18/24 08:49 Dose: 5 mg Aspirin (Aspirin Enteric Coated 81 Mg Tablet.) 81 mg PO DAILY [facility] Last Admin: 04/17/24 08:36 Dose: Not Given Gabapentin (Gabapentin 400 Mg Capsule) 800 mg PO QID [facility] Last Admin: 04/18/24 13:07 Dose: 800 mg Magnesium Hydroxide (Milk Of Magnesia 30 Ml Oral.Susp) 30 ml PO DAILY PRN PRN Reason: Constipation Nicotine Polacrilex (Nicotine Polacrilex 2 Mg Gum) 4 mg BUCCAL Q2H PRN PRN Reason: Nicotine Cravings Omeprazole (Omeprazole 20 Mg Capsule.) 20 mg PO BID [facility] Last Admin: 04/18/24 08:49 Dose: 20 mg Quetiapine Fumarate (Quetiapine Fumarate 25 Mg Tablet) 75 mg PO BEDTIME [facility] Last Admin: 04/17/24 21:13 Dose: 75 mg Quetiapine Fumarate (Quetiapine Fumarate 25 Mg Tablet) 25 mg PO Q4H PRN PRN Reason: anxiety Last Admin: 04/18/24 08:53 Dose: 25 mg Topiramate (Topiramate 100 Mg Tablet) 200 mg PO BEDTIME [facility] Last Admin: 04/17/24 21:12 Dose: 200 mg Trazodone HCl (Trazodone Hcl 50 Mg Tablet) 50 mg PO BEDTIME MRX1 PRN PRN Reason: Insomnia Last Admin: 04/11/24 20:21 Dose: 50 mg Valacyclovir HCl (Valacyclovir Hcl 1,000 Mg Tablet) 1,000 mg PO DAILY [facility] Last Admin: 04/18/24 08:49 Dose: 1,000 mg Allergies Allergies Allergy/AdvReac Type Severity Reaction Status Date / Time acetaminophen [From Vicodin] Allergy Unknown Verified 04/10/24 02:04 amoxicillin Allergy Unknown Verified 04/10/24 02:04 calcium carbonate Allergy Unknown Verified 04/10/24 02:04 [From Florical] hydrocodone [From Vicodin] Allergy Unknown Verified 04/10/24 02:04 sodium fluoride Allergy Unknown Verified 04/10/24 02:04 [From Florical] sulfamethoxazole Allergy Unknown Verified 04/10/24 02:04 [From Bactrim] trimethoprim [From Bactrim] Allergy Unknown Verified 04/10/24 02:04 Assessment & Plan Assessment & Plan (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 add seroquel 25 mg QHS for psychosis in manuel's chorea. UTI - missed doses of cefpodoxime. requires new course of antibx? 04/11: Laying in bed most of shift. Keeping to self. Guarded. Soft spoken. Patient reports feeling the same as yesterday . She reports auditory hallucinations that are quieting down ; patient did not go into detail as to what auditory hallucinations are saying. Patient denies SI/HI/VH. Per nursing, patient slept 8 hours last night. Continue current treatment plan. 04/12: increase HS seroquel to 50 mg for AH. DC hydroxyzine and start seroquel 12.5 PRN anxiety. neuro consult appreciated. 04/13: continue current management and treatment plan. 04/14: Continue current management and treatment plan. 04/15: Increase Seroquel to 75 mg HS. Continue current management and treatment plan. Encourage groups and milieu. 04/16: feeling ready for discharge. does not seem to be aware she is her on CV. begin D/C planning. AH continue, but attenuated. 04/17: poor ADLs. collect collateral from [employer] M[employer] OPERATOR HELPER re baseline fxn. increase anxiety PRNs from seroquel 12.5 mg each to seroquel 25 mg each. 04/18: doing well with seroquel increase. denies AH. continue current mgmt. collect collateral from pt's [employer] MACHINE OPERATOR HELPER. Reason for continued inpatient stay Substantial Risk for: harm to self, inability to function and rapid decompensation Time Spent With Patient Time: Total time managing care of this patient today __25__ minutes.
[2024-04-18 19:55] VITALS: BP 109/67; PULSE 81; RESP 14; TEMP 36.8; O2SAT 100
[2024-04-18] MEDS: QUEtiapine Fumarate 25 MG TABLET 75 MG PO (20:24)
[2024-04-18] MEDS: Topiramate 100 MG TABLET 200 MG PO (20:24)
[2024-04-19 09:17] VITALS: BP 104/57; PULSE 66; RESP 18; TEMP 36.7; O2SAT 100
[2024-04-19] MEDS: Omeprazole 20 MG CAPSULE.DR PO ×2 (09:18→20:42)
[2024-04-19] MEDS: Gabapentin 400 MG CAPSULE 800 MG PO ×4 (09:18→20:42)
[2024-04-19] MEDS: valACYclovir HCL 1,000 MG TABLET 1000 MG PO (09:19)
[2024-04-19] MEDS: Apixaban 5 MG TABLET PO ×2 (09:19→20:42)
--- NOTE | 2024-04-19 13:47 | P.PNPSI_ITS ---
Subjective Subjective Date of Service: 04/19/24 Reason For Visit: Adjustment disorder with mixed anxiety and depress Interim History: denies any AH, specifically denies hearing from O. continues to feel well enough for discharge. no other complaints or requests. per staff, taking meds. denies depression, endorses anxiety. seroquel PRNs are helpful. per MIL collateral via [employer]ost[employer], pt appears to be near baseline. Mental Status Exam Mental Status Exam Narrative: dressed in personal clothes. disheveled. left facial droop. cooperative. no PMA/PMR. no abnormal movements noted. speech somewhat dysarthric from facial droop, it appears. normal rate, amount. decr loudness and flattened tone. nml latency. thoughts linear and logical, no delusions expressed. affect more flexible, hypo-intense, non-labile. mood not assessed. no SI/SIBI/HI expressed. denies AH. Diagnostics Vital Signs (24Hr): Vital Signs - 24 hr 04/18/24 19:55 04/19/24 09:17 Temperature 98.2 F 98.1 F Pulse Rate 81 66 Respiratory Rate 14 18 Blood Pressure 109/67 104/57 L Pulse Oximetry 100 100 Oxygen Delivery Method Room Air Room Air BMI result Body Mass Index 24.8 Labs 04/11/24 09:25 Medications Medications Current Medications Acetaminophen (Acetaminophen 325 Mg Tablet) 650 mg PO Q6H PRN PRN Reason: Headache/Pain Mild Scale (1-3) Last Admin: 04/10/24 09:01 Dose: 650 mg Al Hydroxide/Mg Hydroxide (Magnesium Hydrox/Alum Hydrox 30 Ml Oral.Susp) 30 ml PO Q6H PRN PRN Reason: Heartburn/Nausea Apixaban (Apixaban 5 Mg Tablet) 5 mg PO BID [facility] Last Admin: 04/19/24 09:19 Dose: 5 mg Aspirin (Aspirin Enteric Coated 81 Mg Tablet.Dr) 81 mg PO DAILY [facility] Last Admin: 04/17/24 08:36 Dose: Not Given Gabapentin (Gabapentin 400 Mg Capsule) 800 mg PO QID [facility] Last Admin: 04/19/24 09:18 Dose: 800 mg Magnesium Hydroxide (Milk Of Magnesia 30 Ml Oral.Susp) 30 ml PO DAILY PRN PRN Reason: Constipation Nicotine Polacrilex (Nicotine Polacrilex 2 Mg Gum) 4 mg BUCCAL Q2H PRN PRN Reason: Nicotine Cravings Omeprazole (Omeprazole 20 Mg Capsule.Dr) 20 mg PO BID [facility] Last Admin: 04/19/24 09:18 Dose: 20 mg Quetiapine Fumarate (Quetiapine Fumarate 25 Mg Tablet) 75 mg PO BEDTIME [facility] Last Admin: 04/18/24 20:24 Dose: 75 mg Quetiapine Fumarate (Quetiapine Fumarate 25 Mg Tablet) 25 mg PO Q4H PRN PRN Reason: anxiety Last Admin: 04/18/24 08:53 Dose: 25 mg Topiramate (Topiramate 100 Mg Tablet) 200 mg PO BEDTIME [facility] Last Admin: 04/18/24 20:24 Dose: 200 mg Trazodone HCl (Trazodone Hcl 50 Mg Tablet) 50 mg PO BEDTIME MRX1 PRN PRN Reason: Insomnia Last Admin: 04/11/24 20:21 Dose: 50 mg Valacyclovir HCl (Valacyclovir Hcl 1,000 Mg Tablet) 1,000 mg PO DAILY [facility] Last Admin: 04/19/24 09:19 Dose: 1,000 mg Allergies Allergies Allergy/AdvReac Type Severity Reaction Status Date / Time acetaminophen [From Vicodin] Allergy Unknown Verified 04/10/24 02:04 amoxicillin Allergy Unknown Verified 04/10/24 02:04 calcium carbonate Allergy Unknown Verified 04/10/24 02:04 [From Florical] hydrocodone [From Vicodin] Allergy Unknown Verified 04/10/24 02:04 sodium fluoride Allergy Unknown Verified 04/10/24 02:04 [From Florical] sulfamethoxazole Allergy Unknown Verified 04/10/24 02:04 [From Bactrim] trimethoprim [From Bactrim] Allergy Unknown Verified 04/10/24 02:04 Assessment & Plan Assessment & Plan (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 add seroquel 25 mg QHS for psychosis in manuel's chorea. UTI - missed doses of cefpodoxime. requires new course of antibx? 04/11: Laying in bed most of shift. Keeping to self. Guarded. Soft spoken. Patient reports feeling the same as yesterday . She reports auditory hallucinations that are quieting down ; patient did not go into detail as to what auditory hallucinations are saying. Patient denies SI/HI/VH. Per nursing, patient slept 8 hours last night. Continue current treatment plan. 04/12: increase HS seroquel to 50 mg for AH. DC hydroxyzine and start seroquel 12.5 PRN anxiety. neuro consult appreciated. 04/13: continue current management and treatment plan. 04/14: Continue current management and treatment plan. 04/15: Increase Seroquel to 75 mg HS. Continue current management and treatment plan. Encourage groups and milieu. 04/16: feeling ready for discharge. does not seem to be aware she is her on CV. begin D/C planning. AH continue, but attenuated. 04/17: poor ADLs. collect collateral from CAMPGROUND MANAGER re baseline fxn. increase anxiety PRNs from seroquel 12.5 mg each to seroquel 25 mg each. 04/18: doing well with seroquel increase. denies AH. continue current mgmt. collect collateral from pt's CAMPGROUND MANAGER. 04/19: denies AH. feels seroquel PRNs helpful for anxiety. per collateral from CAMPGROUND MANAGER, pt approaching baseline. Reason for continued inpatient stay Substantial Risk for: inability to function and rapid decompensation Time Spent With Patient Time: Total time managing care of this patient today __25__ minutes.
[2024-04-19 20:00] VITALS: BP 110/72; PULSE 84; RESP 16; TEMP 37; O2SAT 96
[2024-04-19] MEDS: QUEtiapine Fumarate 25 MG TABLET 75 MG PO (20:41)
[2024-04-19] MEDS: Topiramate 100 MG TABLET 200 MG PO (20:42)
[2024-04-20 07:25] VITALS: BP 96/63; PULSE 66; RESP 12; TEMP 36.9; O2SAT 100
--- NOTE | 2024-04-20 08:06 | HO.PSYCHPN ---
Subjective Subjective Date of Service: 04/20/24 Reason For Visit: Adjustment disorder with mixed anxiety and depress Subjective Notes: Conditional Voluntary Interim History: IN room. Continues to feel improved and hopeful for discharge planning with primary team- especially have [employer] services in place. Denies depression, SI or hallucinations. No med concerns- seroquel helpful Medication Compliance: Yes Side effects from medications: No Attending Groups: No Review of Systems Acute medical concerns: No Review of Systems Review of Systems nothing acute Mental Status Exam Mental Status Exam Narrative: In bed and pajamas. Appears disheveled. left facial droop. cooperative. no PMA/PMR. no abnormal movements noted. speech somewhat dysarthric from facial droop, it appears. normal rate, amount. decr loudness and flattened tone. nml latency. thoughts linear and logical, no delusions expressed. affect more flexible, hypo-intense, non-labile. mood not assessed. no SI/SIBI/HI expressed. denies AH. Diagnostics Vital Signs (24Hr): Vital Signs - 24 hr 04/19/24 09:17 04/19/24 20:00 Temperature 98.1 F 98.6 F Pulse Rate 66 84 Respiratory Rate 18 16 Blood Pressure 104/57 L 110/72 Pulse Oximetry 100 96 Oxygen Delivery Method Room Air Room Air BMI result Body Mass Index 24.8 Labs 04/11/24 09:25 Medications Medications Current Medications Acetaminophen (Acetaminophen 325 Mg Tablet) 650 mg PO Q6H PRN PRN Reason: Headache/Pain Mild Scale (1-3) Last Admin: 04/10/24 09:01 Dose: 650 mg Al Hydroxide/Mg Hydroxide (Magnesium Hydrox/Alum Hydrox 30 Ml Oral.Susp) 30 ml PO Q6H PRN PRN Reason: Heartburn/Nausea Apixaban (Apixaban 5 Mg Tablet) 5 mg PO BID [facility] Last Admin: 04/19/24 20:42 Dose: 5 mg Aspirin (Aspirin Enteric Coated 81 Mg Tablet.Dr) 81 mg PO DAILY [facility] Last Admin: 04/17/24 08:36 Dose: Not Given Gabapentin (Gabapentin 400 Mg Capsule) 800 mg PO QID [facility] Last Admin: 04/19/24 20:42 Dose: 800 mg Magnesium Hydroxide (Milk Of Magnesia 30 Ml Oral.Susp) 30 ml PO DAILY PRN PRN Reason: Constipation Nicotine Polacrilex (Nicotine Polacrilex 2 Mg Gum) 4 mg BUCCAL Q2H PRN PRN Reason: Nicotine Cravings Omeprazole (Omeprazole 20 Mg Capsule.Dr) 20 mg PO BID [facility] Last Admin: 04/19/24 20:42 Dose: 20 mg Quetiapine Fumarate (Quetiapine Fumarate 25 Mg Tablet) 75 mg PO BEDTIME [facility] Last Admin: 04/19/24 20:41 Dose: 75 mg Quetiapine Fumarate (Quetiapine Fumarate 25 Mg Tablet) 25 mg PO Q4H PRN PRN Reason: anxiety Last Admin: 04/18/24 08:53 Dose: 25 mg Topiramate (Topiramate 100 Mg Tablet) 200 mg PO BEDTIME [facility] Last Admin: 04/19/24 20:42 Dose: 200 mg Trazodone HCl (Trazodone Hcl 50 Mg Tablet) 50 mg PO BEDTIME MRX1 PRN PRN Reason: Insomnia Last Admin: 04/11/24 20:21 Dose: 50 mg Valacyclovir HCl (Valacyclovir Hcl 1,000 Mg Tablet) 1,000 mg PO DAILY [facility] Last Admin: 04/19/24 09:19 Dose: 1,000 mg Allergies Allergies Allergy/AdvReac Type Severity Reaction Status Date / Time acetaminophen [From Vicodin] Allergy Unknown Verified 04/10/24 02:04 amoxicillin Allergy Unknown Verified 04/10/24 02:04 calcium carbonate Allergy Unknown Verified 04/10/24 02:04 [From Florical] hydrocodone [From Vicodin] Allergy Unknown Verified 04/10/24 02:04 sodium fluoride Allergy Unknown Verified 04/10/24 02:04 [From Florical] sulfamethoxazole Allergy Unknown Verified 04/10/24 02:04 [From Bactrim] trimethoprim [From Bactrim] Allergy Unknown Verified 04/10/24 02:04 Assessment & Plan Assessment & Plan (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 - [place]'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 add seroquel 25 mg QHS for psychosis in manuel's chorea. UTI - missed doses of cefpodoxime. requires new course of antibx? 04/11: Laying in bed most of shift. Keeping to self. Guarded. Soft spoken. Patient reports feeling the same as yesterday . She reports auditory hallucinations that are quieting down ; patient did not go into detail as to what auditory hallucinations are saying. Patient denies SI/HI/VH. Per nursing, patient slept 8 hours last night. Continue current treatment plan. 04/12: increase HS seroquel to 50 mg for AH. DC hydroxyzine and start seroquel 12.5 PRN anxiety. neuro consult appreciated. 04/13: continue current management and treatment plan. 04/14: Continue current management and treatment plan. 04/15: Increase Seroquel to 75 mg HS. Continue current management and treatment plan. Encourage groups and milieu. 04/16: feeling ready for discharge. does not seem to be aware she is her on CV. begin D/C planning. AH continue, but attenuated. 04/17: poor ADLs. collect collateral from [employer] re baseline fxn. increase anxiety PRNs from seroquel 12.5 mg each to seroquel 25 mg each. 04/18: doing well with seroquel increase. denies AH. continue current mgmt. collect collateral from pt's [employer]. 04/19: denies AH. feels seroquel PRNs helpful for anxiety. per collateral from BLACKTOP SP[employer]ER, pt approaching baseline. 04/20: no changes Reason for continued inpatient stay Substantial Risk for: rapid decompensation Time Spent With Patient Time: Total time managing care of this patient today ____ minutes.
[2024-04-20] MEDS: Gabapentin 400 MG CAPSULE 800 MG PO ×4 (09:22→20:47)
[2024-04-20] MEDS: Apixaban 5 MG TABLET PO ×2 (09:23→20:47)
[2024-04-20] MEDS: Omeprazole 20 MG CAPSULE.DR PO ×2 (09:23→20:47)
[2024-04-20] MEDS: valACYclovir HCL 1,000 MG TABLET 1000 MG PO (09:23)
[2024-04-20] MEDS: QUEtiapine Fumarate 25 MG TABLET PO (09:26)
[2024-04-20 19:50] VITALS: BP 124/72; PULSE 84; RESP 18; TEMP 36.8; O2SAT 100
[2024-04-20] MEDS: QUEtiapine Fumarate 25 MG TABLET 75 MG PO (20:47)
[2024-04-20] MEDS: Topiramate 100 MG TABLET 200 MG PO (20:47)
[2024-04-21 08:00] VITALS: BP 94/58; PULSE 69; RESP 16; TEMP 36.6; O2SAT 100
--- NOTE | 2024-04-21 08:10 | HO.PSYCHPN ---
Subjective Subjective Date of Service: 04/21/24 Reason For Visit: Adjustment disorder with mixed anxiety and depress Interim History: In room. Continues to feel improved Mood [place], hopeful for discharge planning with primary team- needs DELIVERY CREW MEMBER services in place. Denies depression, SI or hallucinations. Medication Compliance: Yes Side effects from medications: No Attending Groups: No Review of Systems Acute medical concerns: No Review of Systems Review of Systems nothing acute Mental Status Exam Mental Status Exam Narrative: In bed and pajamas. Appears disheveled. left facial droop. cooperative. no PMA/PMR. no abnormal movements noted. speech somewhat dysarthric from facial droop, it appears. normal rate, amount. decr loudness and flattened tone. nml latency. thoughts linear and logical, no delusions expressed. affect more flexible, hypo-intense, non-labile. mood not assessed. no SI/SIBI/HI expressed. denies AH. Diagnostics Vital Signs (24Hr): Vital Signs - 24 hr 04/20/24 19:50 Temperature 98.2 F Pulse Rate 84 Respiratory Rate 18 Blood Pressure 124/72 Pulse Oximetry 100 Oxygen Delivery Method Room Air BMI result Body Mass Index 24.8 Labs 04/11/24 09:25 Medications Medications Current Medications Acetaminophen (Acetaminophen 325 Mg Tablet) 650 mg PO Q6H PRN PRN Reason: Headache/Pain Mild Scale (1-3) Last Admin: 04/10/24 09:01 Dose: 650 mg Al Hydroxide/Mg Hydroxide (Magnesium Hydrox/Alum Hydrox 30 Ml Oral.Susp) 30 ml PO Q6H PRN PRN Reason: Heartburn/Nausea Apixaban (Apixaban 5 Mg Tablet) 5 mg PO BID [facility] Last Admin: 04/20/24 20:47 Dose: 5 mg Aspirin (Aspirin Enteric Coated 81 Mg Tablet.) 81 mg PO DAILY [facility] Last Admin: 04/17/24 08:36 Dose: Not Given Gabapentin (Gabapentin 400 Mg Capsule) 800 mg PO QID [facility] Last Admin: 04/20/24 20:47 Dose: 800 mg Magnesium Hydroxide (Milk Of Magnesia 30 Ml Oral.Susp) 30 ml PO DAILY PRN PRN Reason: Constipation Nicotine Polacrilex (Nicotine Polacrilex 2 Mg Gum) 4 mg BUCCAL Q2H PRN PRN Reason: Nicotine Cravings Omeprazole (Omeprazole 20 Mg Capsule.) 20 mg PO BID [facility] Last Admin: 04/20/24 20:47 Dose: 20 mg Quetiapine Fumarate (Quetiapine Fumarate 25 Mg Tablet) 75 mg PO BEDTIME [facility] Last Admin: 04/20/24 20:47 Dose: 75 mg Quetiapine Fumarate (Quetiapine Fumarate 25 Mg Tablet) 25 mg PO Q4H PRN PRN Reason: anxiety Last Admin: 04/20/24 09:26 Dose: 25 mg Topiramate (Topiramate 100 Mg Tablet) 200 mg PO BEDTIME [facility] Last Admin: 04/20/24 20:47 Dose: 200 mg Trazodone HCl (Trazodone Hcl 50 Mg Tablet) 50 mg PO BEDTIME MRX1 PRN PRN Reason: Insomnia Last Admin: 04/11/24 20:21 Dose: 50 mg Valacyclovir HCl (Valacyclovir Hcl 1,000 Mg Tablet) 1,000 mg PO DAILY [facility] Last Admin: 04/20/24 09:23 Dose: 1,000 mg Allergies Allergies Allergy/AdvReac Type Severity Reaction Status Date / Time acetaminophen [From Vicodin] Allergy Unknown Verified 04/10/24 02:04 amoxicillin Allergy Unknown Verified 04/10/24 02:04 calcium carbonate Allergy Unknown Verified 04/10/24 02:04 [From Florical] hydrocodone [From Vicodin] Allergy Unknown Verified 04/10/24 02:04 sodium fluoride Allergy Unknown Verified 04/10/24 02:04 [From Florical] sulfamethoxazole Allergy Unknown Verified 04/10/24 02:04 [From Bactrim] trimethoprim [From Bactrim] Allergy Unknown Verified 04/10/24 02:04 Assessment & Plan Assessment & Plan (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 - [place]'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 add seroquel 25 mg QHS for psychosis in manuel's chorea. UTI - missed doses of cefpodoxime. requires new course of antibx? 04/11: Laying in bed most of shift. Keeping to self. Guarded. Soft spoken. Patient reports feeling the same as yesterday . She reports auditory hallucinations that are quieting down ; patient did not go into detail as to what auditory hallucinations are saying. Patient denies SI/HI/VH. Per nursing, patient slept 8 hours last night. Continue current treatment plan. 04/12: increase HS seroquel to 50 mg for AH. DC hydroxyzine and start seroquel 12.5 PRN anxiety. neuro consult appreciated. 04/13: continue current management and treatment plan. 04/14: Continue current management and treatment plan. 04/15: Increase Seroquel to 75 mg HS. Continue current management and treatment plan. Encourage groups and milieu. 04/16: feeling ready for discharge. does not seem to be aware she is her on CV. begin D/C planning. AH continue, but attenuated. 04/17: poor ADLs. collect collateral from DELIV[employer] CREW MEMBER re baseline fxn. increase anxiety PRNs from seroquel 12.5 mg each to seroquel 25 mg each. 04/18: doing well with seroquel increase. denies AH. continue current mgmt. collect collateral from pt's DELIV[employer] CREW MEMBER. 04/19: denies AH. feels seroquel PRNs helpful for anxiety. per collateral from DELIVERY CREW MEMBER, pt approaching baseline. 04/21: no changes Reason for continued inpatient stay Substantial Risk for: inability to function Time Spent With Patient Time: Total time managing care of this patient today ____ minutes.
[2024-04-21] MEDS: Omeprazole 20 MG CAPSULE.DR PO ×2 (09:32→20:09)
[2024-04-21] MEDS: Apixaban 5 MG TABLET PO ×2 (09:32→20:09)
[2024-04-21] MEDS: valACYclovir HCL 1,000 MG TABLET 1000 MG PO (09:32)
[2024-04-21] MEDS: Gabapentin 400 MG CAPSULE 800 MG PO ×4 (09:33→20:09)
[2024-04-21 19:55] VITALS: BP 96/52; PULSE 87; RESP 20; TEMP 37.4; O2SAT 99
[2024-04-21] MEDS: QUEtiapine Fumarate 25 MG TABLET 75 MG PO (20:09)
[2024-04-21] MEDS: Topiramate 100 MG TABLET 200 MG PO (20:09)
[2024-04-22 07:35] VITALS: BP 111/70; PULSE 64; RESP 16; TEMP 36.8; O2SAT 98
[2024-04-22] MEDS: Apixaban 5 MG TABLET PO ×2 (08:48→20:49)
[2024-04-22] MEDS: valACYclovir HCL 1,000 MG TABLET 1000 MG PO (08:48)
[2024-04-22] MEDS: Gabapentin 400 MG CAPSULE 800 MG PO ×3 (08:48→20:49)
[2024-04-22] MEDS: Omeprazole 20 MG CAPSULE.DR PO ×2 (08:48→20:49)
--- NOTE | 2024-04-22 15:50 | HO.PSYCHPN ---
Subjective Subjective Date of Service: 04/22/24 Reason For Visit: Adjustment disorder with mixed anxiety and depress Interim History: stable presentation. awake, sitting in bed, calm, cooperative. feeling at baseline. agreeable to weds discharge. per staff, flat, guarded. superficially pleasant. poor ADLs. poor PO intake. slept 7 hours. Mental Status Exam Mental Status Exam Narrative: dressed in personal clothes. disheveled. left facial droop. cooperative. no PMA/PMR. no abnormal movements noted. speech somewhat dysarthric from facial droop, it appears. normal rate, amount. decr loudness and flattened tone. nml latency. thoughts linear and logical, no delusions expressed. affect more flexible, hypo-intense, non-labile. mood high anxiety. no SI/SIBI. no HI expressed. denies AH. Diagnostics Vital Signs (24Hr): Vital Signs - 24 hr 04/21/24 19:55 04/22/24 07:35 Temperature 99.3 F 98.3 F Pulse Rate 87 64 Respiratory Rate 20 16 Blood Pressure 96/52 L 111/70 Pulse Oximetry 99 98 Oxygen Delivery Method Room Air Room Air BMI result Body Mass Index 24.8 Labs 04/11/24 09:25 Medications Medications Current Medications Acetaminophen (Acetaminophen 325 Mg Tablet) 650 mg PO Q6H PRN PRN Reason: Headache/Pain Mild Scale (1-3) Last Admin: 04/10/24 09:01 Dose: 650 mg Al Hydroxide/Mg Hydroxide (Magnesium Hydrox/Alum Hydrox 30 Ml Oral.Susp) 30 ml PO Q6H PRN PRN Reason: Heartburn/Nausea Apixaban (Apixaban 5 Mg Tablet) 5 mg PO BID [facility] Last Admin: 04/22/24 08:48 Dose: 5 mg Aspirin (Aspirin Enteric Coated 81 Mg Tablet.) 81 mg PO DAILY [facility] Last Admin: 04/17/24 08:36 Dose: Not Given Gabapentin (Gabapentin 400 Mg Capsule) 800 mg PO QID [facility] Last Admin: 04/22/24 13:19 Dose: 800 mg Magnesium Hydroxide (Milk Of Magnesia 30 Ml Oral.Susp) 30 ml PO DAILY PRN PRN Reason: Constipation Nicotine Polacrilex (Nicotine Polacrilex 2 Mg Gum) 4 mg BUCCAL Q2H PRN PRN Reason: Nicotine Cravings Omeprazole (Omeprazole 20 Mg Capsule.) 20 mg PO BID [facility] Last Admin: 04/22/24 08:48 Dose: 20 mg Quetiapine Fumarate (Quetiapine Fumarate 25 Mg Tablet) 75 mg PO BEDTIME [facility] Last Admin: 04/21/24 20:09 Dose: 75 mg Quetiapine Fumarate (Quetiapine Fumarate 25 Mg Tablet) 25 mg PO Q4H PRN PRN Reason: anxiety Last Admin: 04/20/24 09:26 Dose: 25 mg Topiramate (Topiramate 100 Mg Tablet) 200 mg PO BEDTIME [facility] Last Admin: 04/21/24 20:09 Dose: 200 mg Trazodone HCl (Trazodone Hcl 50 Mg Tablet) 50 mg PO BEDTIME MRX1 PRN PRN Reason: Insomnia Last Admin: 04/11/24 20:21 Dose: 50 mg Valacyclovir HCl (Valacyclovir Hcl 1,000 Mg Tablet) 1,000 mg PO DAILY [facility] Last Admin: 04/22/24 08:48 Dose: 1,000 mg Allergies Allergies Allergy/AdvReac Type Severity Reaction Status Date / Time acetaminophen [From Vicodin] Allergy Unknown Verified 04/10/24 02:04 amoxicillin Allergy Unknown Verified 04/10/24 02:04 calcium carbonate Allergy Unknown Verified 04/10/24 02:04 [From Florical] hydrocodone [From Vicodin] Allergy Unknown Verified 04/10/24 02:04 sodium fluoride Allergy Unknown Verified 04/10/24 02:04 [From Florical] sulfamethoxazole Allergy Unknown Verified 04/10/24 02:04 [From Bactrim] trimethoprim [From Bactrim] Allergy Unknown Verified 04/10/24 02:04 Assessment & Plan Assessment & Plan (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 - [place]'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 add seroquel 25 mg QHS for psychosis in manuel's chorea. UTI - missed doses of cefpodoxime. requires new course of antibx? 04/11: Laying in bed most of shift. Keeping to self. Guarded. Soft spoken. Patient reports feeling the same as yesterday . She reports auditory hallucinations that are quieting down ; patient did not go into detail as to what auditory hallucinations are saying. Patient denies SI/HI/VH. Per nursing, patient slept 8 hours last night. Continue current treatment plan. 04/12: increase HS seroquel to 50 mg for AH. DC hydroxyzine and start seroquel 12.5 PRN anxiety. neuro consult appreciated. 04/13: continue current management and treatment plan. 04/14: Continue current management and treatment plan. 04/15: Increase Seroquel to 75 mg HS. Continue current management and treatment plan. Encourage groups and milieu. 04/16: feeling ready for discharge. does not seem to be aware she is her on CV. begin D/C planning. AH continue, but attenuated. 04/17: poor ADLs. collect collateral from COMM[employer]ITY [employer]FFA[employer]GER re baseline fxn. increase anxiety PRNs from seroquel 12.5 mg each to seroquel 25 mg each. 04/18: doing well with seroquel increase. denies AH. continue current mgmt. collect collateral from pt's COMMUNITY AFFAIRS MANAGER. 04/19: denies AH. feels seroquel PRNs helpful for anxiety. per collateral from COMMUNITY AFFAIRS MANAGER, pt approaching baseline. 04/21: no changes 04/22: denies SI/SIBI/AH. would like to discharge weds. continue current mgmt. Reason for continued inpatient stay Substantial Risk for: inability to function and rapid decompensation Time Spent With Patient Time: Total time managing care of this patient today _25___ minutes.
[2024-04-22 19:20] VITALS: BP 117/71; PULSE 87; TEMP 37.2; O2SAT 100
[2024-04-22] MEDS: QUEtiapine Fumarate 25 MG TABLET 75 MG PO (20:50)
[2024-04-22] MEDS: Topiramate 100 MG TABLET 200 MG PO (20:50)
[2024-04-23 07:58] VITALS: BP 97/57; PULSE 61; RESP 16; TEMP 36.6; O2SAT 100
[2024-04-23] MEDS: valACYclovir HCL 1,000 MG TABLET 1000 MG PO (08:45)
[2024-04-23] MEDS: Gabapentin 400 MG CAPSULE 800 MG PO ×4 (08:46→20:26)
[2024-04-23] MEDS: Omeprazole 20 MG CAPSULE.DR PO ×2 (08:46→20:27)
[2024-04-23] MEDS: Apixaban 5 MG TABLET PO ×2 (08:46→20:28)
--- NOTE | 2024-04-23 10:38 | PM.PSYDC ---
DS: Providers Provider Date of Service: 04/23/24 Date of admission: 04/09/24 23:47 Primary care physician: Rosemary Baer NP Consults: 04/10/24 01:40 Consult to Hospitalist Routine Comment: Consulting Provider: Hospitalist Reason For Exam: ditect admission 04/10/24 09:48 Consult to Neurology Routine Consulting Provider: [facility] Reason for consultation: manuel's chorea, exacerbated psychosis. consult for best mgmt. 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: Status: Acute (3) Factor V Leiden: Status: Acute (4) History of stroke: Status: Acute (5) Ulcerative colitis: Status: Acute DS: Medications Discharge Medications Home Medications: Home Medications ?Medication ?Instructions ?Recorded ?Confirmed apixaban 5 mg tablet (Eliquis) 5 mg PO BID 04/10/24 04/10/24 gabapentin 800 mg tablet 800 mg PO QID 04/10/24 04/10/24 pantoprazole 20 mg PO BID 04/10/24 04/10/24 topiramate 200 mg tablet 200 mg PO BEDTIME 04/10/24 04/10/24 valacyclovir 1 gram tablet 1,000 mg PO DAILY 04/10/24 04/10/24 Previous Rx's ?Medication ?Instructions ?Recorded quetiapine 25 mg tablet See Rx Instructions .Route 04/23/24 .COMPLEX psychosis 30 days #120 tabs Mental Status Exam Mental Status Exam Narrative: dressed in personal clothes. disheveled. left facial droop. cooperative. no PMA/PMR. no abnormal movements noted. speech somewhat dysarthric from facial droop, it appears. normal rate, amount. decr loudness and flattened tone. nml latency. thoughts linear and logical, no delusions expressed. affect more flexible, hypo-intense, non-labile. mood good. no SI/SIBI/HI/AVH. DS: Summary Hospital Course Hospital Course: per 04/10 admission note: HPI Narrative: per crisis eval, pt was BIBA to [facility] after family called due to pt washing herself with scalding hot water to get the demons off. reported she has tourette's disorder bcse a neighbor placed a camera in her home. reports she has visions of ghosts and spirits. pt reports hearing the voice of O, a previous tenant of the house who there in 1998, who has reportedly been telling her to wash herself with the scalding water. reported poor appetite and sleep. c/o anxiety and sometimes sadness. asking for medication for tourette's. per collateral from C, pt having poorer memory fxn recently. she reported pt has been hiding in the basement from the demon O, who has been threatening her. C also stated pt has had an increase in paranoia that the neighbors are spying on her and trying to get into her head. on interview with MD on the unit, presentation is consistent with the above. pt reports O does not tell her what to do, however. she reports that marjan lopez put a camera in her house and it has been on laser settings for 2 weeks and that's how she got tourette's (which is the voices, the weird thoughts ). she is interested in medication for tourette's. agrees to trial of anti-psychotic. left facial droop, dysarthric as a result. clotting disorder, h/o occlusive stroke and s/p thrombectomy. Past Psychiatric History: hosps: denies prior SA: denies SIB: denies outpt: has PCP. sees Dr. Rosemary Baer at [facility] Medical Evaluation Reviewed: Hospitalist Cecil Pending [facility] Medical History (Updated 04/10/24 @ 23:27 by Viktor Estrada MD) Huntingtons chorea Narrative: Factor V Leiden h/o heart valve disorder liver failure ulcerative colitis migraine LEYVA h/o CVA - sequelae unclear Family History: manuel's chorea Social History: 5 children. 9th grade education, got GED. lives in a jennifer in a rented apartment. single, never . Substance History: denies use of any substances whatsoever Trauma History: deferred Precis: 04/10: continue outpt medications regimen. add seroquel 25 mg QHS for psychosis in manuel's chorea. UTI - missed doses of cefpodoxime. requires new course of antibx? 04/11: continue outpt medications regimen. add seroquel 25 mg QHS for psychosis in manuel's chorea. UTI - missed doses of cefpodoxime. requires new course of antibx? 04/11: Laying in bed most of shift. Keeping to self. Guarded. Soft spoken. Patient reports feeling the same as yesterday . She reports auditory hallucinations that are quieting down ; patient did not go into detail as to what auditory hallucinations are saying. Patient denies SI/HI/VH. Per nursing, patient slept 8 hours last night. Continue current treatment plan. 04/12: increase HS seroquel to 50 mg for AH. DC hydroxyzine and start seroquel 12.5 PRN anxiety. neuro consult appreciated. 04/13: continue current management and treatment plan. 04/14: Continue current management and treatment plan. 04/15: Increase Seroquel to 75 mg HS. Continue current management and treatment plan. Encourage groups and milieu. 04/16: feeling ready for discharge. does not seem to be aware she is her on CV. begin D/C planning. AH continue, but attenuated. 04/17: poor ADLs. collect collateral from [employer] re baseline fxn. increase anxiety PRNs from seroquel 12.5 mg each to seroquel 25 mg each. 04/18: doing well with seroquel increase. denies AH. continue current mgmt. collect collateral from pt's [employer]. 04/19: denies AH. feels seroquel PRNs helpful for anxiety. per collateral from [employer], pt approaching baseline. 04/21: no changes 04/22: denies SI/SIBI/AH. would like to discharge weds. continue current mgmt. 04/23: calm, cooperative, denying psychotic Sx. meds reviewed, reconciled, prescribed. D/C tomorrow: 04/24: safe, stable. discharged to outpt care as per plan. Time Spent with Patient Time attestation: Total time managing care of this patient today __35__ minutes. 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 ) Raul Santos MD [Physician] - 05/02/24 3:15 pm (Your follow up appt has been scheduled with Dr. Palacios at [facility] on 05-02-24 @ 3:15pm.) Discharge Medications: New quetiapine 25 mg Tablet See Rx Instructions .ROUTE .COMPLEX 30 Days Qty: 120 0RF Rx Instructions: take three tabs at bedtime (75 mg) and one tab (25 mg) once daily as needed. Continued valacyclovir 1 gram tablet 1,000 mg PO DAILY topiramate 200 mg tablet 200 mg PO BEDTIME Eliquis 5 mg tablet 5 mg PO BID gabapentin 800 mg tablet 800 mg PO QID pantoprazole 20 mg PO BID Discontinued cefpodoxime 100 mg tablet 200 mg PO BID aspirin 81 mg PO DAILY ibuprofen 600 mg PO QID PRN (Reason: Pain) pregabalin 150 mg PO BID Discharge Orders: Discharge Order (Routine); Ordered 04/24/24 Ordered By: Viktor Estrada Diet: Advance to usual diet Activity on Discharge: As tolerated Stand Alone Forms: Patient Portal Discharge page, Community Support Print Language: Telugu Care Plan Goals: remain safe and stable in the outpatient treatment setting Health Concerns: Edwall's Chorea Ulcerative Colitis Plan of Treatment: take medications as prescribed, attend appointments as scheduled Assessment: not at imminent risk of harm to self or others Discharge Date/Time: 04/24/24 11:00
[2024-04-23 20:00] VITALS: BP 100/65; PULSE 82; RESP 16; TEMP 36.9; O2SAT 99
[2024-04-23] MEDS: QUEtiapine Fumarate 25 MG TABLET 75 MG PO (20:26)
[2024-04-23] MEDS: Topiramate 100 MG TABLET 200 MG PO (20:26)
[2024-04-24 07:51] VITALS: BP 92/57; PULSE 61; RESP 18; TEMP 36.8; O2SAT 100
[2024-04-24] MEDS: Omeprazole 20 MG CAPSULE.DR PO (08:34)
[2024-04-24] MEDS: valACYclovir HCL 1,000 MG TABLET 1000 MG PO (08:34)
[2024-04-24] MEDS: Apixaban 5 MG TABLET PO (08:34)
[2024-04-24] MEDS: Gabapentin 400 MG CAPSULE 800 MG PO (08:34)
== END 2024-04-24 11:00 | disposition home or self-care (01) | DRG 57 ==
PROVIDERS: Psychiatry & Neurology Psychiatry; Admitting Provider Psychiatry & Neurology Psychiatry; PCP Nurse Practitioner Family; Visit Provider Psychiatry & Neurology Psychiatry
DX: G10 Huntington's disease (principal); F06.0 Psychotic disorder with hallucinations due to known physiological condition; D68.51 Activated protein C resistance; K51.90 Ulcerative colitis, unspecified, without complications; N39.0 Urinary tract infection, site not specified; T36.96XA Underdosing of unspecified systemic antibiotic, initial encounter; B00.9 Herpesviral infection, unspecified; G43.909 Migraine, unspecified, not intractable, without status migrainosus; Z86.718 Personal history of other venous thrombosis and embolism; Z86.73 Personal history of transient ischemic attack (TIA), and cerebral infarction without residual deficits; Z79.01 Long term (current) use of anticoagulants; Z79.899 Other long term (current) drug therapy
CPT/HCPCS: 36415; 80053; 80061

== ENCOUNTER → 2024-04-09 23:47 | Outpatient (BNV) | payer OTHER, SELFPAY | PROVIDERS: Admitting Provider Psychiatry & Neurology Psychiatry; PCP Nurse Practitioner Family; Visit Provider Internal Medicine | DX: G10 Huntington's disease (principal) | CPT/HCPCS: 99222 ==

== ENCOUNTER → 2024-04-09 23:47 | Outpatient (BNV) | payer OTHER, SELFPAY | PROVIDERS: Admitting Provider Psychiatry & Neurology Psychiatry; PCP Nurse Practitioner Family; Visit Provider Psychiatry & Neurology Psychiatry | DX: F06.0 Psychotic disorder with hallucinations due to known physiological condition (principal); G10 Huntington's disease; D68.51 Activated protein C resistance; Z86.73 Personal history of transient ischemic attack (TIA), and cerebral infarction without residual deficits | CPT/HCPCS: 90792; 99231; 99232; 99239 ==

== ENCOUNTER → 2024-04-09 23:47 | Outpatient (BNV) | payer OTHER, SELFPAY | PROVIDERS: Admitting Provider Psychiatry & Neurology Psychiatry; PCP Nurse Practitioner Family; Visit Provider Psychiatry & Neurology Neurology | DX: G10 Huntington's disease (principal) | CPT/HCPCS: 99222 ==